=== PATIENT | female | born 1975 | race Two or more races ===

== ENCOUNTER 2020-03-12 15:28 | Outpatient (REF) | payer OTHER, SELFPAY | END 2020-03-12 15:29 | disposition home or self-care (01) | LOC: HO.LAB 15:28 | PROVIDERS: PCP Internal Medicine; Visit Provider Internal Medicine | DX: Z20.828 Contact with and (suspected) exposure to other viral communicable diseases (principal) | CPT/HCPCS: C9803; U0003 ==

== ENCOUNTER 2020-06-03 11:37 | Outpatient (REF) | payer OTHER, SELFPAY | END 2020-06-03 11:38 | disposition home or self-care (01) | LOC: HO.LAB 11:37 | PROVIDERS: Visit Provider Internal Medicine | DX: Z20.822 Contact with and (suspected) exposure to COVID-19 (principal) | CPT/HCPCS: 36415; C9803; U0003 ==

== ENCOUNTER 2020-06-12 13:13 | Outpatient (REF) | payer OTHER, SELFPAY | END 2020-06-12 13:14 | disposition home or self-care (01) | LOC: HO.LAB 13:13 | PROVIDERS: Visit Provider Internal Medicine | DX: Z20.822 Contact with and (suspected) exposure to COVID-19 (principal) | CPT/HCPCS: 36415; C9803; U0003; U0005 ==

== ENCOUNTER 2020-06-16 12:51 | Outpatient (REF) | payer OTHER, SELFPAY | END 2020-06-16 12:52 | disposition home or self-care (01) | LOC: HO.LAB 12:51 | PROVIDERS: Visit Provider Internal Medicine | DX: Z20.822 Contact with and (suspected) exposure to COVID-19 (principal) | CPT/HCPCS: 36415; C9803; U0003; U0005 ==

== ENCOUNTER 2021-04-28 14:53 | Outpatient (REF) | payer OTHER, SELFPAY | END 2021-04-28 14:54 | disposition home or self-care (01) | LOC: HO.LAB 14:53 | PROVIDERS: Visit Provider Internal Medicine | DX: Z20.822 Contact with and (suspected) exposure to COVID-19 (principal) | CPT/HCPCS: C9803; U0003; U0005 ==

== ENCOUNTER 2023-01-26 14:09 | Emergency (ER) | payer OTHER, SELFPAY ==
--- NOTE | 2023-01-26 14:14 | ED_ITS ---
HPI - General Adult General Chief complaint: Back Pain/Injury Stated complaint: back pain Related Data Allergies Allergy/AdvReac Type Severity Reaction Status Date / Time Ortho Evra Allergy Unknown skin Uncoded 03/20/11 00:00 irritation Physical Exam ED Vital Signs: Vital Signs - 24 hr 01/26/23 14:16 Temperature 98 F Pulse Rate 113 H Respiratory Rate 18 Blood Pressure 113/74 Pulse Oximetry 98 Oxygen Delivery Method Room Air BMI result Body Mass Index 25.7 Course Course Course Narrative: This is a rapid medical exam: Additional HPI, ROS, PE not included below will be deferred to primary provider. Patient is a 47-year-old female presenting to the ED with complaint of left lower back pain for one week. Reports history of kidney stones. States at times the pain radiates to the front. Denies fevers. Denies recent falls or other trauma. Rates pain at 10/10. Plan: UA, basic labs Medical Decision Making Lab Data 01/26/23 14:26 01/26/23 14:26 Labs: Lab Results 01/26/23 Range/Units 14:26 WBC 6.9 (4.8-10.8) X10*3/uL RBC 4.13 L (4.20-5.50) X10*6/uL Hgb 12.3 (12.0-16.0) g/dl Hct 40.2 (37.0-47.0) % MCV 97.3 (80.0-98.0) fL MCH 29.8 (27.0-33.0) pg MCHC 30.6 L (31.0-35.0) g/dl RDW 13.6 (11.0-16.0) % Plt Count 403 H (160-400) X10*3/uL MPV 9.8 (9.4-12.3) fL Immature Gran % (Auto) 0.1 (0.0-0.4) % Neut % (Auto) 61.8 (45-73) % Lymph % (Auto) 26.8 (20-40) % [place] % (Auto) 9.1 (2-11) % Eos % (Auto) 1.2 (0-4) % Baso % (Auto) 1.0 (0-2) % Lymph # (Auto) 1.9 (1.2-4.9) X10*3/uL [place] # (Auto) 0.6 (0.1-1.2) X10*3/uL Eos # (Auto) 0.1 (0.0-0.4) X10*3/uL Baso # (Auto) 0.1 (0.0-0.2) X10*3/uL Abs Immat Gran (auto) 0.01 (0.00-0.03) X10*3/uL Absolute Neuts (auto) 4.3 (2.0-8.3) x10*3/uL Absolute Nucleated RBC 0.000 (0.0-0.012) X10*3/uL Nucleated RBC % (auto) 0.0 (0.0-0.2) /100WBC Sodium 145 (135-145) mmol/L Potassium 3.9 (3.3-5.1) mmol/L Chloride 109 H (96-108) mmol/L Carbon Dioxide 28 (22-29) mmol/L Anion Gap 12 (12-20) BUN 12 (9-16) mg/dL Creatinine 0.86 (0.5-1.4) mg/dL Estim Creat Clear Calc 76.6 Estimated GFR > 60 Random Glucose 98 (60-115) mg/dL Calcium 9.8 (8.4-10.2) mg/dL Total Bilirubin 0.1 (0.0-1.0) mg/dL AST 17 (5-31) U/L ALT 12 (0-31) U/L Alkaline Phosphatase 73 (39-117) U/L Total Protein 7.7 (6.5-8.0) g/dL Albumin 4.1 (3.5-5.0) g/dL Beta HCG, Quant 3 mIU/mL Urine Color Dark Yellow Urine Appearance Clear Urine pH 6.5 (5.0-9.0) Ur Specific Oste[place] 1.025 (1.005-1.025) Urine Protein Trace (Neg-Trace) mg/dL Urine Glucose (UA) Negative (Negative) mg/dL Urine Ketones Negative (Negative) mg/dL Urine Blood Large (3+) H (Negative) Urine Nitrite Negative (Negative) Ur Leukocyte Esterase Small (1+) H (Negative) Urine RBC >20 H (0-2) /HPF Urine WBC 0-5 (0-5) /HPF Ur Squamous Epith Cells 6-10 (0-2) /HPF Urine Bacteria Trace (None Seen) Hyaline Casts 0-2 (0-2) /LPF Discharge Plan Discharge Clinical Impression: Left flank pain Patient Disposition: Left W/O Completing Treatment
[2023-01-26 14:16] VITALS: BP 113/74; PULSE 113; RESP 18; TEMP 36.6; O2SAT 98; BMI 25.7
[2023-01-26 14:32] LABS: MANUAL DIFF FLAG NO
[2023-01-26 14:33] LABS: Basophils Absolute Auto 0.1 X10*3/uL (0.0-0.2); Eosinophils Absolute Auto 0.1 X10*3/uL (0.0-0.4); Eosinophils Percent Auto 1.2 % (0-4); Hematocrit 40.2 % (37.0-47.0); Hemoglobin 12.3 g/dl (12.0-16.0); Imm Gran Abs Auto 0.01 X10*3/uL (0.00-0.03); Imm Gran Pct Auto 0.1 % (0.0-0.4); Lymphocytes Absolute Auto 1.9 X10*3/uL (1.2-4.9); Lymphocytes Percent Auto 26.8 % (20-40); Mean Corpuscular HGB Conc 30.6 g/dl (31.0-35.0); Mean Corpuscular Hemoglobin 29.8 pg (27.0-33.0); Mean Corpuscular Volume 97.3 fL (80.0-98.0); Mean Platelet Volume 9.8 fL (9.4-12.3); Monocytes Absolute Auto 0.6 X10*3/uL (0.1-1.2); Monocytes Percent Auto 9.1 % (2-11); Neutrophils Absolute Auto 4.3 x10*3/uL (2.0-8.3); Neutrophils Percent Auto 61.8 % (45-73); Platelet Count 403 X10*3/uL (160-400); Red Blood Count 4.13 X10*6/uL (4.20-5.50); Red Cell Distribution Width 13.6 % (11.0-16.0); White Blood Count 6.9 X10*3/uL (4.8-10.8)
[2023-01-26 14:38] LABS: Appearance Urine Clear; Color Urine Dark Yellow; Glucose Urine UA Negative (Negative); Leukocyte Esterase Urine Small (1+) (Negative); Nitrite Urine Negative (Negative); PH 6.5 (5.0-9.0); Specific Gravity - Urine 1.025 (1.005-1.025); UMIC TRIGGER UACC YES; Urine Blood Large (3+) (Negative); Urine Ketones Negative (Negative); Urine Protein Trace mg/dL (Neg-Trace)
[2023-01-26 14:52] LABS: Alanine Aminotransferase 12 U/L (0-31); Albumin Level 4.1 g/dL (3.5-5.0); Alkaline Phosphatase 73 U/L (39-117); Anion Gap 12 (12-20); Aspartate Amino Transferase 17 U/L (5-31); Bacteria Urine Trace (None Seen); Bilirubin Total 0.1 mg/dL (0.0-1.0); Blood Urea Nitrogen 12 mg/dL (9-16); Calcium 9.8 mg/dL (8.4-10.2); Carbon Dioxide 28 mmol/L (22-29); Chloride 109 mmol/L (96-108); Creatinine Clr Calc Pharmacy 76.6; Estimated Glomerular Filt Rate > 60; Glucose Random 98 mg/dL (60-115); Hyaline Casts Urine 0-2 /LPF (0-2); Potassium 3.9 mmol/L (3.3-5.1); RBC Urine >20 /HPF (0-2); Sodium 145 mmol/L (135-145); Total Protein 7.7 g/dL (6.5-8.0); UACC Culture Trigger YES; WBC Urine 0-5 /HPF (0-5)
[2023-01-26 14:53] LABS: HCG Quantitative 3 mIU/mL
== END 2023-01-26 20:07 | disposition left against medical advice (07) ==
PROVIDERS: Registered Nurse Emergency; Emergency Provider Emergency Medicine; PCP Internal Medicine
DX: R10.9 Unspecified abdominal pain (principal); M54.50 Low back pain, unspecified; Z79.899 Other long term (current) drug therapy
CPT/HCPCS: 36415; 80053; 81001; 84702; 85025; 87086; 99282; 99283

== ENCOUNTER 2023-06-24 15:13 | Emergency (ER) | payer OTHER, SELFPAY ==
[2023-06-24 15:34] VITALS: BP 141/53; PULSE 113; RESP 20; TEMP 37; O2SAT 100; BMI 26.4
--- NOTE | 2023-06-24 15:35 | ED.SKABFB ---
HPI - Skin/Abscess/Foreign Bdy General Chief complaint: Skin/Abscess/Foreign Body Stated complaint: Flank pain/lower back rash Time Seen by Provider: 06/24/23 15:49 Source: patient Mode of arrival: ambulatory Limitations: no limitations History of Present Illness HPI narrative: 48 year old female with no significant pmhx presents to the ED today for evaluation of painful, itchy rash to right lower back and thigh with pain to left flank x1 week. Admits to intense pain over the last week prior to noticing rash appear to right lower back. She states that she was seen at urgent care 1 week ago for same, prescribed clotrimazole-betamethasone for suspected tinea corporis. She has been using this for the last week without relief of symptoms. States that the rash is getting worse, now spreading to her right anterior thigh. Denies new soaps, detergents, lotions. Denies recent tick or insect bites. Otherwise up-to-date on vaccinations. Admits to having chickenpox as a child. Otherwise up-to-date on vaccinations. Denies fever, chills, nausea or vomiting, dysuria or hematuria. Denies chest pain, shortness of breath or difficulty breathing. Denies recent medication changes. Denies known allergies. Related Data Previous Rx's Medication Instructions Recorded gabapentin 100 mg capsule 100 mg PO BID 10 days #20 caps 06/24/23 valacyclovir 1 gram tablet 1,000 mg PO TID 10 days #30 tabs 06/24/23 (Valtrex) Allergies Allergy/AdvReac Type Severity Reaction Status Date / Time Ortho Evra Allergy Unknown skin Uncoded 06/24/23 15:38 irritation Review of Systems Review of Systems: Constitutional: No fever, chills, fatigue, night sweats, weight changes ENT/Mouth: No ear pain, hearing loss, nasal congestion, sinus pain, rhinorrhea, sore throat Eyes: No eye pain, swelling, redness, vision changes, discharge Cardio: No chest pain, palpitations, HERNANDEZ, orthopnea, peripheral edema Pulm: No SOB, cough, sputum, wheezing, dyspnea, hemoptysis GI: No nausea, vomiting, hematemesis, abdominal pain, diarrhea, constipation, hematochezia, melena : No irregular bleeding, dysuria, frequency, urgency, hesitancy, hematuria, flank pain, urinary flow changes, urinary incontinence or retention MSK: No back pain, neck pain, joint pain, myalgias Skin: No lesions, +painful rash Neuro: No weakness, numbness, paresthesias, LOC, dizziness, headache All other systems reviewed and are negative. [facility] Past Medical History Attestation statement: The following information was validated with the patient. Source: old records reviewed and nursing notes reviewed Social History Social History Advance Directives: No Advance Directives Information Provided: No Physical Exam Vital Signs: Vital Signs: Last Vital Signs Temp 98.6 F 06/24/23 15:34 Pulse 113 H 06/24/23 15:34 Resp 20 06/24/23 15:34 BP 141/53 H 06/24/23 15:34 Pulse Ox 100 06/24/23 15:34 O2 Del Method Room Air 06/24/23 15:34 BMI result Body Mass Index 26.4 Const: General: cooperative, healthy appearing, comfortable and no acute distress Orientation/consciousness: patient oriented x3 Limitations: no limitations HEENT: Other: + no involvement of mucous membranes Head: Yes normal to inspection, Yes normocephalic and Yes atraumatic Ears: hearing grossly normal bilaterally, external ears normal, TM's normal bilaterally, EAC's normal, mastoids normal and no periauricular adenopathy General nose exam: Normal external nose present Face and sinus: Yes normal facial exam Mouth: Normal oral and palatal mucosa present Eyes: Other: + no dendritic lesions General: appearance normal, both eyes and all related structures Conjunctivae: conjunctivae normal Sclerae: sclerae normal Pupils: Equal, round and reactive pupils present Neck: Neck: Yes normal visual inspection and Yes no lymphadenopathy Chest: Chest palpation & inspection: normal inspection of the chest Resp: Effort & Inspection: normal respiratory effort and able to speak in complete sentences Auscultation: clear to auscultation bilaterally Cardio: Rate: regular rate Rhythm: regular rhythm GI: Inspection: Yes normal to inspection Palpation (GI): Soft to palpation and nontender : General: Yes no CVA tenderness Back/Spine/Pelvis: Other: + no midline spinous tenderness or step off deformity Back: no CVA tenderness Skin: Other: + please refer to photos below + rash consisting of small blisters on an erythematous base in along right lumbar and sacral dermatomes. No sloughing. No involvement of mucous membranes. No involvement of palms/soles or web spaces. Neuro: General: patient oriented x3, gait normal and no focal motor deficits Cranial nerves: Yes Equal, round and reactive pupils present Extrem: General: Yes normal exam except as noted Course Course Course Narrative: [id number]-- Patient's presentation is most consistent with herpes zoster rash. There is no ocular involvement. Will send Valtrex and gabapentin to pharmacy for treatment. Patient states she takes prednisone at baseline for ulcerative colitis flare ups and thus a steroid will be prescribed. I do not feel as though further workup is necessary at this time as this is a clinical diagnosis. Discussed worrisome signs and symptoms of when to return to the ED. All questions answered at this time. Patient has remained stable throughout visit today. She is agreeable with disposition and stable for discharge. Medical Decision Making Medical Decision Making [facility] Narrative: 48 year old female with no significant pmhx presents to the ED today for evaluation of painful, itchy rash to right lower back and thigh with pain to left flank x1 week. She is afebrile. Nontoxic appearing in no acute distress. Please refer to physical exam section for my findings. Clinical concern for herpes zoster. Lower suspicion for contact dermatitis, tinea infection, tick-borne pathology. Unlikely herpes simplex, Lyme disease, SJS/TEN, scabies, [id number], gregory hui syndrome, medication adverse reaction. Plan for discharge. Differential Diagnosis Differential Diagnoses: The differential diagnosis associated with the presentation includes As above. Admission/Observation not indicated. Prescription Management I considered prescription management with: Pain Medication and Antiviral Social Determinants Patient?s care significantly limited by Social Determinants of Health including: Other Social Determinant of Health Discharge Plan Discharge Clinical Impression: Herpes zoster Patient Disposition: Home, Self-Care Instructions: Shingles (ED) Additional Instructions: You were evaluated in the ED today for rash. Your rash is consistent with shingles (herpes zoster). Treatment for this is Valtrex, an antiviral, which has been sent to your pharmacy. Take this 3 times a day for the next 10 days. Do not miss any doses or stop taking this early. Gabapentin is a medication for nerve pain. This has also been sent to your pharmacy. Take this twice daily as pain. You are contagious until pustules have scabbed over. You may follow-up with your PCP as needed. If symptoms persist or worsen please return to the ED. In the case of an emergency call 911. Prescriptions: New valacyclovir [Valtrex] 1 gram tablet 1,000 mg PO TID 10 Days Qty: 30 0RF gabapentin 100 mg capsule 100 mg PO BID 10 Days Qty: 20 0RF Interventions: ED Discharge Assessment Last Done: 06/24/23 15:48 Discharge Date/Time: 06/24/23 15:50
== END 2023-06-24 15:50 | disposition home or self-care (01) ==
PROVIDERS: Emergency Provider Emergency Medicine; PCP Internal Medicine
DX: B02.8 Zoster with other complications (principal); R10.9 Unspecified abdominal pain; M54.50 Low back pain, unspecified
CPT/HCPCS: 99283; 99284

== ENCOUNTER 2023-09-12 12:12 | Emergency (ER) | payer OTHER, SELFPAY ==
--- NOTE | ~2023-09-12 | XR_ITS ---
EXAMINATION: XR LUMBOSACRAL SPINE CLINICAL INFORMATION: Pain. Injury. COMPARISON: None available. TECHNIQUE: Three views of the lumbosacral spine. FINDINGS: Bone alignment is normal. No fracture or dislocation. Normal disc spaces. Mild degenerative spondylosis at L2-L3. Lower lumbar spine facet arthritis. XR/XR lumbar spine 2-3V IMPRESSION: Mild degenerative changes. No fracture or dislocation.
--- NOTE | ~2023-09-12 | XR_ITS ---
EXAMINATION: XR THORACOLUMBAR SPINE CLINICAL INFORMATION: Pain. Injury. COMPARISON: None available. TECHNIQUE: 3 views of the thoracic spine including swimmer's view FINDINGS: There is mild curvature of the lower thoracic and upper lumbar spine to the right. Bone alignment is otherwise normal. No fracture or dislocation. Normal disc spaces. Normal paraspinal soft tissues. XR/XR thoracic spine 2V IMPRESSION: No fracture or dislocation. Mild curvature of the lower thoracic and upper lumbar spine to the right.
[2023-09-12 12:43] VITALS: BP 118/61; PULSE 95; RESP 8; TEMP 36.6; O2SAT 99; BMI 26.3
--- NOTE | 2023-09-12 12:43 | ED.GENADULT ---
HPI - General Adult General Chief complaint: Back Pain/Injury Stated complaint: lower back pain Time Seen by Provider: 09/12/23 14:21 Source: patient Mode of arrival: ambulatory Limitations: no limitations History of Present Illness HPI narrative: Patient is a 48-year-old female presenting to the emergency department with complaint of mid to low back pain which began Tuesday. She denies any fall or other trauma but states that she has been moving over the course of several days and has been doing much more lifting than normal. States at times pain radiates down her right leg. Denies any saddle anesthesia or bowel or bladder incontinence. Denies fevers. Denies history of cancer or IV drug use. Has been using heat and gabapentin with temporary relief of symptoms. MD complaint: Back pain Onset (ago): day(s) Location: back Radiation: distal Severity: severe Quality: burning Pain Consistency: colicky Relieving factors: medication Exacerbating factors: movement Associated symptoms: denies other symptoms Treatments prior to arrival: heat therapy and other Related Data Previous Rx's ?Medication ?Instructions ?Recorded gabapentin 100 mg capsule 100 mg PO BID 10 days #20 caps 06/24/23 valacyclovir 1 gram tablet 1,000 mg PO TID 10 days #30 tabs 06/24/23 (Valtrex) cyclobenzaprine 5 mg tablet 5 mg PO TID PRN muscle spasm #10 09/12/23 tabs lidocaine 5 % topical patch 1 patch topical DAILY #15 ea 09/12/23 prednisone 20 mg tablet 40 mg (2 x 20 mg) PO DAILY #10 tabs 09/12/23 Allergies Allergy/AdvReac Type Severity Reaction Status Date / Time aspirin [ASA] AdvReac Unknown Verified 09/12/23 12:44 Review of Systems Review of Systems: As per HPI. Yes all other systems are reviewed and are negative Constitutional: Constitutional: Reports as per HPI [facility] Social History Social History Advance Directives: No Advance Directives Information Provided: No Physical Exam ED Vital Signs: Vital Signs - 24 hr 09/12/23 12:43 09/12/23 15:11 Temperature 98 F 98.2 F Pulse Rate 95 77 Respiratory Rate 8 L 16 Blood Pressure 118/61 108/57 L Pulse Oximetry 99 100 Oxygen Delivery Method Room Air Room Air BMI result Body Mass Index 26.3 Vital signs have been reviewed and appear to be correct. Blood pressure normal. Heart rate normal. Respiratory rate normal. Temperature normal. Oxygen saturation normal. Const General: cooperative, healthy appearing and no acute distress Orientation/consciousness: oriented to person, oriented to place, oriented to time and patient oriented x3 Limitations: no limitations HENKS Head: Yes normocephalic and Yes atraumatic Ears: external ears normal General nose exam: Normal external nose present Face and sinus: Yes face symmetric Mouth: oropharynx normal and moist mucous membranes Throat: Yes uvula midline Eyes Pupils: Equal, round and reactive pupils present Neck Neck: Yes normal visual inspection and Yes supple Resp Effort & Inspection: normal respiratory effort and able to speak in complete sentences Auscultation: clear to auscultation bilaterally Cardio Rate: regular rate Rhythm: regular rhythm Heart sounds: S1 normal heart sound present and S2 normal heart sound present GI Palpation (GI): Soft to palpation and nontender Auscultation: normoactive bowel sounds General: Yes no CVA tenderness Back/Spine/Pelvis Back: no CVA tenderness Cervical Spine: normal cervical lordosis, cervical ROM normal, No cervical muscular tenderness, No pain with cervical ROM, No Cervical spine tenderness and No step off deformity Thoracic/Lumbar Spine: thoracic and lumbar spine normal to inspection, thoraco-lumbar ROM normal, straight leg raise negative bilaterally, pain with thoraco-lumbar ROM, paraspinal muscle tenderness bilaterally in the upper lumbar, thoracic spinal tenderness at T11 and at T12 and lumbar spinal tenderness at L1 and at L2 Pelvis: no pain with anterior-posterior compression and no pain with lateral compression Skin General skin exam: elasticity normal and turgor normal Neuro General: oriented to person, oriented to place, oriented to time, patient oriented x3, moves all extremities, no focal motor deficits and CN's II-XI intact bilaterally Cranial nerves: Yes Equal, round and reactive pupils present Cognition (Neuro): normal cognition Extrem General: Yes full ROM, Yes no pedal edema and Yes no calf tenderness Psych Mental Status: mental status grossly normal Affect: normal affect Thought process: Normal thought process present Course Course Course Narrative: RME performed by Rebecca Delgado PA-C. Patient is a 48 year old assigned female at presenting to the emergency department with mid to low back pain. Patient states that she was moving the other day and started having mid to low back pain that is worse with certain movements. Patient states that she tried gabapentin and heat but it isn't helping as much as she'd like. Detailed physical exam and review of systems are deferred to the electronic engineering draftsperson. Imaging ordered. Patient placed back in the waiting room pending room availability and results. Medical Decision Making Medical Decision Making [facility] Narrative: Patient is a 48-year-old female presenting to the emergency department with complaint of mid to low back pain which began Tuesday. On exam patient is awake, A+Ox3, VS WNL, afebrile, normal neurological exam without focal deficits, physical exam findings as above. Given reported symptoms and physical exam findings, initial differential includes lumbar strain, lumbar radiculopathy, degenerative disc disease, disc herniation, spinal stenosis, spondylosis. Less likely vertebral fracture. Do not suspect malignancy/mass, SEA, cauda equina/cord compression. X-ray thoracic and lumbar spine notable for mild degenerative changes, no fractures were spondylosis. My interpretation is in agreement with the radiologist's interpretation. Physical exam findings most consistent with lumbar radiculopathy. Will treat patient with course of prednisone, cyclobenzaprine and lidocaine patches. Instructed patient follow-up with primary care provider. Return precautions discussed at bedside. Patient verbalized understanding of and agreement with plan. Differential Diagnosis Differential Diagnoses: The differential diagnosis associated with the presentation includes As per [facility] Admission/Observation Consideration of admission/observation: Escalation of care including admission/observation considered as per [facility] Independent Interpretation I performed an independent interpretation of an: Plain X-Ray Interpretation: X-ray thoracic and lumbar spine notable for mild degenerative changes, no fractures were spondylosis. Radiology Impression Discussion of test interpretation with radiology: I have reviewed the radiologist's reading. Radiologist Impression: XR/XR lumbar spine 2-3V IMPRESSION: Mild degenerative changes. No fracture or dislocation. XR/XR thoracic spine 2V IMPRESSION: No fracture or dislocation. Mild curvature of the lower thoracic and upper lumbar spine to the right. External Record Review External record reviewed: Inpatient record, Office record and Outpatient record Prescription Management I considered prescription management with: Pain Medication and Other Discharge Plan Discharge Clinical Impression: Lumbar radiculopathy Patient Disposition: Home, Self-Care Instructions: Lumbar Radiculopathy (ED) Additional Instructions: You were evaluated in the emergency department today for back pain. Your evaluation did not show signs of medical conditions requiring emergent intervention at this time. We recommended that you use ibuprofen or Tylenol per package directions every 6 hours as needed for pain. If necessary, you can alternate these medications so that you take one medication every 3 hours. For instance, at noon take ibuprofen, then at 3:00 p.m. take Tylenol, then at 6:00 p.m. take ibuprofen. You have been prescribed a muscle relaxer which you may take every 8 hours as needed for spasms. You have been prescribed 5% topical lidocaine patches which you can wear for up to 12 hours in a 24 hour period. Do not apply heat directly over the patches. You are also being prescribed a short course of steroids to decrease inflammation. Please schedule an appointment for follow-up with your primary care physician this week for further evaluation of your symptoms. Return to the emergency department if you experience worsening back pain, difficulty walking, fevers, numbness, tingling, incontinence, groin numbness or tingling, or any other concerning symptoms. Prescriptions: New prednisone 20 mg tablet 40 mg PO DAILY Qty: 10 0RF lidocaine 5 % adhesive patch,medicated 1 patch topical DAILY Qty: 15 0RF Rx Instructions: leave on most painful area for up to 12 hrs cyclobenzaprine 5 mg tablet 5 mg PO TID PRN (Reason: muscle spasm) Qty: 10 0RF No Action valacyclovir [Valtrex] 1 gram tablet 1,000 mg PO TID 10 Days Qty: 30 0RF gabapentin 100 mg capsule 100 mg PO BID 10 Days Qty: 20 0RF Print Language: Pashto
[2023-09-12 15:11] VITALS: BP 108/57; PULSE 77; RESP 16; TEMP 36.8; O2SAT 100
[2023-09-12 16:42] VITALS: BP 127/62; PULSE 88; RESP 20; TEMP 36.7; O2SAT 99
[2023-09-12 16:48] VITALS: BP 127/62; PULSE 88; RESP 20; TEMP 36.7; O2SAT 99
== END 2023-09-12 16:48 | disposition home or self-care (01) ==
PROVIDERS: Emergency Provider Student in an Organized Health Care Education/Training Program; PCP Internal Medicine
DX: M54.16 Radiculopathy, lumbar region (principal); M54.50 Low back pain, unspecified
CPT/HCPCS: 72070; 72100; 99283

== ENCOUNTER 2024-03-01 12:44 | Emergency (ER) | payer OTHER, SELFPAY ==
--- NOTE | ~2024-03-01 | XR_ITS ---
EXAMINATION: XR FOOT, LEFT CLINICAL INFORMATION: Pain. COMPARISON: Radiograph left foot 01/02/2009. TECHNIQUE: AP, lateral, and oblique views of the left foot. FINDINGS: No acute fracture or dislocation. No osseous erosions. No unusual soft tissue calcifications. Normal appearance of the soft tissues. XR/XR foot LT min 3V IMPRESSION: Normal radiographic examination of the left foot. Electronically signed by: Anna Carrion MD 03/01/2024 04:28 PM EDT
[2024-03-01 13:20] VITALS: BP 124/57; PULSE 91; RESP 18; TEMP 36.7; O2SAT 99; BMI 26.1
--- NOTE | 2024-03-01 13:23 | ED_ITS ---
HPI - General Adult General Chief complaint: Extremity Injury, Lower Stated complaint: L foot pain for a week Time Seen by Provider: 03/01/24 14:45 Source: patient Mode of arrival: ambulatory Limitations: no limitations History of Present Illness ED Provider: Dalila HPI narrative: Patient is a 49-year-old female presenting to the emergency department with complaint of atraumatic left foot pain for the past week. States that she is often standing for long periods of time at work. Denies any falls or other injuries. Has been using diclofenac gel with little relief. Denies any numb ness or tingling. MD complaint: foot pain Onset (ago): week(s) Treatments prior to arrival: NSAID and other Related Data Previous Rx's ?Medication ?Instructions ?Recorded gabapentin 100 mg capsule 100 mg PO BID 10 days #20 caps 06/24/23 valacyclovir 1 gram tablet 1,000 mg PO TID 10 days #30 tabs 06/24/23 (Valtrex) cyclobenzaprine 5 mg tablet 5 mg PO TID PRN muscle spasm #10 09/12/23 tabs lidocaine 5 % topical patch 1 patch topical DAILY #15 ea 09/12/23 prednisone 20 mg tablet 40 mg (2 x 20 mg) PO DAILY #10 tabs 09/12/23 prednisone 20 mg tablet 40 mg (2 x 20 mg) PO DAILY #14 tabs 03/01/24 Allergies Allergy/AdvReac Type Severity Reaction Status Date / Time aspirin [ASA] AdvReac Unknown Verified 03/01/24 13:22 Review of Systems Review of Systems: As per hPI Yes all other systems are reviewed and are negative Constitutional: Constitutional: Reports as per HPI COUNT INCLUDES [facility] Social History Social History Advance Directives: No Advance Directives Information Provided: Yes Do you have a plan to hurt others: No Plan Physical Exam ED Vital Signs: Vital Signs - 24 hr 03/01/24 13:20 03/01/24 14:30 03/01/24 16:08 Temperature 98.0 F 98.0 F 98.0 F Pulse Rate 91 79 79 Respiratory Rate 18 15 15 Blood Pressure 124/57 L 112/68 112/68 Pulse Oximetry 99 100 100 Oxygen Delivery Method Room Air Room Air Room Air BMI result Body Mass Index 26.1 Vital signs have been reviewed and appear to be correct. Blood pressure normal. Heart rate normal. Respiratory rate normal. Temperature normal. Oxygen saturation normal. Const General: cooperative, healthy appearing and no acute distress Orientation/consciousness: oriented to person, oriented to place, oriented to time and patient oriented x3 Limitations: no limitations HENAZ Head: Yes normocephalic and Yes atraumatic Ears: external ears normal General nose exam: Normal external nose present Face and sinus: Yes face symmetric Mouth: oropharynx normal and moist mucous membranes Throat: Yes uvula midline Eyes Pupils: Equal, round and reactive pupils present Neck Neck: Yes normal visual inspection and Yes supple Resp Effort & Inspection: normal respiratory effort and able to speak in complete sentences Auscultation: clear to auscultation bilaterally Cardio Rate: regular rate Rhythm: regular rhythm Heart sounds: S1 normal heart sound present and S2 normal heart sound present GI Palpation (GI): Soft to palpation and nontender Auscultation: normoactive bowel sounds General: Yes no CVA tenderness Back/Spine/Pelvis Back: no CVA tenderness Skin General skin exam: elasticity normal and turgor normal Neuro General: oriented to person, oriented to place, oriented to time, patient oriented x3, moves all extremities, no focal motor deficits and CN's II-XI intact bilaterally Cranial nerves: Yes Equal, round and reactive pupils present Cognition (Neuro): normal cognition Extrem General: Yes full ROM, Yes no pedal edema and Yes no calf tenderness Left lower extremity: foot Details: normal capillary refill, normal to inspection, tenderness Location: of the dorsal foot, toes with normal ROM, vascular exam Details: dorsalis pedis pulse present, posterior tibial pulse present and normal capillary refill, tendon exam Details: active flexion normal and active extension normal and motor-sensory exam Details: two point discrimination normal, light-touch normal and pin-prick normal; no unusual warmth and no ecchymosis Psych Mental Status: mental status grossly normal Affect: normal affect Thought process: Normal thought process present Course Course Course Narrative: RME, this is a rapid medical exam performed by Francesco Donis please refer to primary provider for complete H&P- 49-year-old female presents for evaluation of pain to the top of the left foot. She reports swelling but denies any specific injury. Plan x-ray Medical Decision Making Medical Decision Making MDM Narrative: Patient is a 49-year-old female presenting to the emergency department with complaint of atraumatic left foot pain for the past week. On exam patient is awake, A+Ox3, VS WNL, afebrile, normal neurological exam without focal deficits, physical exam findings as above. Given reported symptoms and physical exam findings, initial differential includes strain, sprain, tendinopathy, fracture. X-ray foot notable for no evidence of fracture. My interpretation is in agr eement with the radiologist's interpretation. Will treat patient with course of prednisone, Raj wrap provided in the ED. Advised patient to use compression stockings while at work. Follow-up with PCP. Return precautions discussed. Patient verbalized understanding of and agreement with plan. Differential Diagnosis Differential Diagnoses: The differential diagnosis associated with the presentation includes As per MDM Independent Interpretation I performed an independent interpretation of an: Plain X-Ray Interpretation: No evidence of acute fracture to left foot. Radiology Impression Discussion of test interpretation with radiology: I have reviewed the radiologist's reading. Radiologist Impression: XR/XR foot LT min 3V IMPRESSION: Normal radiographic examination of the left foot. External Record Review External record reviewed: Inpatient record, Office record and Outpatient record Prescription Management I considered prescription management with: Other Discharge Plan Discharge Clinical Impression: Tendinopathy of left foot Patient Disposition: Home, Self-Care Instructions: How to Use an Elastic Bandage (ED), R.I.C.E. Treatment (ED) Additional Instructions: You were evaluated in the emergency department today for left foot pain. Your x-rays did not show evidence of obvious fracture, however, the official radiologist's interpretation was not back prior to your discharge. If this interpretation differs, you will be contacted via telephone. You are being treated with a course steroids to decrease inflammation. We also provided you with an Raj wrap at today's visit. We recommend using compression socks while at work. Elevate your foot at rest, apply ice for 10-15 minutes at a time, using caution not to apply ice directly to skin. Follow-up with orthopedics for further evaluation and management of your symptoms. Return with new or concerning symptoms. Prescriptions: New prednisone 20 mg tablet 40 mg PO DAILY Qty: 14 0RF No Action valacyclovir [Valtrex] 1 gram tablet 1,000 mg PO TID 10 Days Qty: 30 0RF gabapentin 100 mg capsule 100 mg PO BID 10 Days Qty: 20 0RF prednisone 20 mg tablet 40 mg PO DAILY Qty: 10 0RF lidocaine 5 % adhesive patch,medicated 1 patch topical DAILY Qty: 15 0RF Rx Instructions: leave on most painful area for up to 12 hrs cyclobenzaprine 5 mg tablet 5 mg PO TID PRN (Reason: muscle spasm) Qty: 10 0RF Referrals: [facility] Orthopedic Surgeons [Provider Group] Interventions: ED Discharge Assessment Last Done: 03/01/24 16:08 Discharge Date/Time: 03/01/24 16:10 Print Language: Citizen Of [place]
[2024-03-01 14:30] VITALS: BP 112/68; PULSE 79; RESP 15; TEMP 36.7; O2SAT 100
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
--- OUTSIDE RECORDS SUMMARY | 2024-03-01 14:45 | XMS_ITS | Continuity of Care Document ---
Author Organization [facility] Address [address] [place] [address]- Care Team Providers Care Tank Farm Gauger Name Role Phone Carissa Solomon MD Primary Care Physician Encounter [facility] Date(s): 01/12/23 - 02/11/[address] [id number] Attending Physician: Chandrakant Silva Admitting Physician: AdmChandrakant hair Referring Physician: Admtr, Ar8 Allergies, Adverse Reactions, Alerts No Known Allergies [...] Date: 10/16/12 Status: Ordered Problem List Condition Confirmation Course Effective Dates Status Health St atus Informant Breast pain Confirmed Active Diffuse cystic mastopathy Confirmed Active Social History Social History Type Response Smoking Status Never (less than 100 in lifetime) entered on: 01/04/22 Sex Patient Care team information Care Team Personnel Name: Carissa Solomon MD Position: Reference Physician Member Role: PCP Address: Address: [address] [place] [id number] Care Team Related Persons Name: DENISE FLORIAN Name: MIRTHA LUI Address: [place] [address] [place], [place] [address]
--- OUTSIDE RECORDS SUMMARY | 2024-03-01 14:45 | XMS_ITS | Continuity of Care Document ---
Author Organization [facility] Address [address] [place] [address]- Care Team Providers Care Web Development Intern Name Role Phone Carissa Solomon MD Primary Care Physician Encounter [facility] [id number] Date(s): 11/25/22 - 03/11/[address] [address] Encounter Diagnosis Procedure and treatment not carried out, unspecified reason(Final) - Discharge Disposition: A-D/C Home Attending Physician: Carissa Solomon MD Admitting Physician: Carissa Solomon MD Referring Physician: Carissa Solomon MD Allergies, Adverse Reactions, Alerts No Known [...] Reference Physician Member Role: PCP Address: Address: [address] [place] [id number]- Care Team Related Persons Name: DENISE FLORIAN Name: MIRTHA LUI Address: [place] [address] [place] [id number]
--- OUTSIDE RECORDS SUMMARY | 2024-03-01 14:45 | XMS_ITS | Continuity of Care Document ---
Author Organization [facility] Address [address] [place] [address]- Care Team Providers Care Solutions Operator Name Role Phone Carissa Solomon MD Primary Care Physician En[place] [facility] [place] Date(s): 11/03/22 - 11/03/[address] [address] Discharge Disposition: A-D/C Home Attending Physician: Carissa Solomon MD Admitting Physician: Carissa Solomon MD Referring Physician: Sabrina Gilbert Allergies, Adverse Reactions, Alerts No Known Allergies [...] Reference Physician Member Role: PCP Address: Address: [address] [place] [address]- Care Team Related Persons Name: DENISE FLORIAN Name: MIRTHA LUI Address: home [address] [address]
--- OUTSIDE RECORDS SUMMARY | 2024-03-01 14:45 | XMS_ITS | Continuity of Care Document ---
Author Organization [facility] Address [address] [place] [address]- Care Team Providers Care Body Man Name Role Phone Carissa Solomon MD Primary Care Physician [phone] Encounter [facility] ACCT R [id number] Date(s): 11/30/22 - 12/30/[address] [email or web address] Attending Physician: Chandrakant Silva Admitting Physician: Chandrakant Silva Referring Physician: AdmtrChandrakant Allergies, Adverse Reactions, Alerts No Known Allergies [...] Reference Physician Member Role: PCP Address: Address: [address] [place] [id number] [[email or web address]] Care Team Related Persons Name: DENISE FLORIAN Name: MIRTHA LUI Address: home [address] [place] [address]
--- OUTSIDE RECORDS SUMMARY | 2024-03-01 14:45 | XMS_ITS | Continuity of Care Document ---
Author Organization [facility] Address [address] [place] [address]- Care Team Providers Care Pump Installer Name Role Phone Carissa Soloomn MD Primary Care Physician [phone] Encounter [facility] Date(s): 11/03/22 - 01/14/[address] [address] Encounter Diagnosis Sprain of unspecified ligament of left ankle, initial encounter(Final) - Discharge Disposition: A-D/C Home Attending Physician: [...] Reference Physician Member Role: PCP Address: Address: [address] [place] [id number]- Care Team Related Persons Name: DENISE FLORIAN Name: MIRTHA LUI Address: [place] [address] [place] [address]
[2024-03-01 16:08] VITALS: BP 112/68; PULSE 79; RESP 15; TEMP 36.7; O2SAT 100
== END 2024-03-01 16:10 | disposition home or self-care (01) ==
PROVIDERS: Emergency Provider Emergency Medicine; PCP Internal Medicine
DX: M77.52 Other enthesopathy of left foot and ankle (principal); M79.672 Pain in left foot
CPT/HCPCS: 73630; 99283

== ENCOUNTER 2024-04-12 16:16 | Inpatient (IN) | payer OTHER, SELFPAY ==
[2024-04-12] VITALS (20 sets, daily range): BP systolic 79–128; BP diastolic 34–68; PULSE 110–136; RESP 12–21; TEMP 36.6–37.9; O2SAT 94–100; BMI 27.3
--- NOTE | ~2024-04-12 | CT_ITS ---
EXAMINATION: CT ABDOMEN AND PELVIS WITHOUT CONTRAST CLINICAL INFORMATION: Left obstructive ureteric stone COMPARISON: None available. TECHNIQUE: Multidetector volumetric imaging was performed from the superior aspect of the liver through the pubic symphysis. Sagittal and coronal reformatted images were obtained on the technologist's workstation. This CT examination was performed using dose optimization techniques as appropriate, variously including the following: *Automated exposure control *Adjustment of mA and/or kV according to patient size (this includes techniques or standardized protocols for targeted exams where dose is matched to indication/reason for exam; i.e. extremities or head) *Use of iterative reconstruction technique DLP: 478 mGy-cm FINDINGS: LUNG BASES: The visualized lung bases are unremarkable. LIVER, GALLBLADDER, AND BILIARY TREE: The liver is normal in size, shape, and attenuation. No focal hepatic lesion or biliary ductal dilatation is present. The gallbladder is unremarkable with no evidence of radiopaque gallstones, gallbladder wall thickening, or obvious pericholecystic inflammatory changes. PANCREAS: Unremarkable. SPLEEN: Unremarkable. ADRENAL GLANDS: Unremarkable. KIDNEYS AND URETERS: At least 3 nonobstructing right ureteral stones, the largest of which measures 2 mm in the upper pole of the right kidney. No right hydronephrosis. Mild left pelvocaliectasis and prominence of the left ureter, but no obstructing ureteral stone or mass. The kidneys are otherwise normal in size, shape, and attenuation. No perinephric stranding. BLADDER: Unremarkable. No bladder stone. GASTROINTESTINAL TRACT: Diffuse circumferential wall thickening of the descending colon and rectosigmoid colon with fat deposition within the wall, likely represents chronic inflammation. No pericolonic stranding. The small bowel is unremarkable. The appendix is unremarkable. ABDOMINAL WALL: No significant hernia is appreciated. LYMPH NODES: Normal. VASCULAR: Unremarkable. PELVIC VISCERA: Unremarkable. OSSEOUS STRUCTURES: Mild degenerative changes of the spine. No destructive osseous lesions. CT/CT abdomen pelvis wo IV con IMPRESSION: 1. Mild prominence of the left collecting system, including the ureter, without overt hydroureteronephrosis and no obstructing ureteral stone or mass. Findings are nonspecific but may represent recently passed stone. 2. At least 3 nonobstructing right ureteral stones, the largest of which measures 2 mm in the upper pole of the right kidney. No right hydronephrosis. 3. Diffuse circumferential wall thickening of the descending colon and rectosigmoid colon with fat deposition within the wall, likely represents chronic inflammation. No pericolonic stranding. Fleischner guidelines were followed. Electronically signed by: Georgia Antunez MD 04/12/2024 09:15 PM NATALIA SAPP
--- NOTE | 2024-04-12 16:43 | PC.NURSE ---
Pt comes to ED via EMS for c/o R flank pain starting about 2 hours after urination, 10/10 R flnak pain with radiation to the R abd began. Pt reports (+) Hx kidney stones and ulcerative colitis. Pt also reports cloudy urine and feels as though she is not fully emptying her bladder. A&Ox3, VSS, afebrile. Skin is warm and dry Breaths and speech are unlabored. (+) facial symmetry noted. 18g to LAC placed by EMS--flushed on arrival and noted to be intact and patent. Per EMS, 4mg Zofran and two doses of 50 mcg Fentanyl given.
--- NOTE | 2024-04-12 17:09 | ED_ITS ---
HPI - Abdominal Pain General Chief Complaint: Abdominal Pain Stated Complaint: R sided flank pain Time Seen by Provider: 04/12/24 17:01 Source: patient and EMS Mode of arrival: EMS Limitations: no limitations History of Present Illness ED Provider: DR. Robbins HPI narrative: 49-year-old female brought in by EMS for evaluation of left flank pain that started few hours earlier today, pain is localized to the left flank area and radiates to the left groin area pain was described as severe 9/10, associated with nausea but no vomiting, no dysuria, no frequency urination, no hematuria, normal bowel movement was this morning, no blood in the urine or stool, passing flatus. surgical history is significant for tubal ligation. Patient has history of kidney stones required 1 time stent on right side when she was . Related Data Previous Rx's ?Medication ?Instructions ?Recorded gabapentin 100 mg capsule 100 mg PO BID 10 days #20 caps 06/24/23 valacyclovir 1 gram tablet 1,000 mg PO TID 10 days #30 tabs 06/24/23 (Valtrex) cyclobenzaprine 5 mg tablet 5 mg PO TID PRN muscle spasm #10 09/12/23 tabs lidocaine 5 % topical patch 1 patch topical DAILY #15 ea 09/12/23 prednisone 20 mg tablet 40 mg (2 x 20 mg) PO DAILY #10 tabs 09/12/23 prednisone 20 mg tablet 40 mg (2 x 20 mg) PO DAILY #14 tabs 03/01/24 Allergies Allergy/AdvReac Type Severity Reaction Status Date / Time aspirin [ASA] AdvReac Unknown Verified 04/12/24 16:29 Review of Systems Review of Systems All other systems are reviewed and are negative Constitutional: Reports as per HPI and Reports no additional constitutional complaints Eyes: Reports as per HPI and Reports no additional eye complaints Reports system reviewed and no additional complaints, except as documented Cardiovascular: Reports as per HPI and Reports no additional cardiovascular complaints Respiratory: Reports as per HPI and Reports no additional respiratory complaints Gastrointestinal: Reports as per HPI and Reports no additional gastrointestinal complaints Genitourinary: Reports no additional female genitourinary complaints Musculoskeletal: Reports no additional musculoskeletal complaints Skin/Breast: Reports system reviewed and no additional complaints, except as docu Psychiatric: Reports no additional psychiatric complaints Endocrine: Reports no additional endocrine complaints Hematologic/Lymphatic: Reports no additional hematologic/lymphatic complaints Allergic/Immunologic: Reports no additional allergic/immunologic complaints Reports system reviewed and no additional complaints, except as documented and Reports Abnormal speech present [facility] Past Medical History Medical History (Updated 04/13/24 @ 00:12 by Florence Robbins MD) Renal calculi Surgical History (Updated 04/13/24 @ 00:11 by Travon Mcghee NP) H/O tubal ligation Social History Social History Smoked in Last 30 Days: Yes Use of substances other than those prescribed or required for medical reasons: No Advance Directives: No Advance Directives Information Provided: No Do you have a plan to hurt others: No Plan Patient : No Physical Exam ED Vital Signs: Vital Signs - 24 hr 04/12/24 16:27 04/12/24 16:35 04/12/24 17:28 Temperature 97.8 F 97.8 F Pulse Rate 117 H 117 H Respiratory Rate 16 16 16 Blood Pressure 113/68 113/68 Pulse Oximetry 94 94 Oxygen Delivery Method Room Air Room Air 04/12/24 19:05 04/12/24 19:58 04/12/24 20:07 Temperature 98.5 F 99.0 F 100.3 F Pulse Rate 118 H 130 H 125 H Respiratory Rate 18 15 18 Blood Pressure 113/52 L 110/51 L 108/54 L Pulse Oximetry 98 97 97 Oxygen Delivery Method Room Air Room Air Room Air 04/12/24 20:44 04/12/24 21:04 04/12/24 21:59 Temperature 100.1 F 100.1 F 99.0 F Pulse Rate 136 H 126 H 114 H Respiratory Rate 16 13 16 Blood Pressure 101/55 L 93/45 L 93/50 L Pulse Oximetry 95 97 100 Oxygen Delivery Method Room Air Room Air Room Air 04/12/24 22:22 04/12/24 23:03 04/12/24 23:14 Temperature 98.8 F Pulse Rate 117 H 120 H Respiratory Rate 13 12 Blood Pressure 85/45 L 92/40 L 82/38 L Pulse Oximetry 100 100 Oxygen Delivery Method Room Air Room Air 04/12/24 23:17 04/12/24 23:22 04/12/24 23:27 Temperature Pulse Rate 119 H 122 H 122 H Respiratory Rate Blood Pressure 79/34 L 90/35 L 83/35 L Pulse Oximetry Oxygen Delivery Method 04/12/24 23:33 Temperature 99.4 F Pulse Rate 129 H Respiratory Rate 21 H Blood Pressure 102/49 L Pulse Oximetry 100 Oxygen Delivery Method Room Air BMI result Body Mass Index 27.3 Vital signs have been reviewed and appear to be correct. Blood pressure elevated. Heart rate normal. Respiratory rate normal. Temperature normal. Oxygen saturation normal. Appearance: Alert. Oriented X3. No acute distress. Head: Normal external exam. Normocephalic. Atraumatic. No Enciso signs noted. No raccoon eyes noted Eyes: PERRLA. EOMI. Conjunctiva and sclera normal. Eyelids normal. ENT: TM's Normal. Pharynx normal. Uvula midline. Moist mucous membranes. No trismus noted. No drooling noted. No muffled voice noted. Neck: Normal inspection. Neck supple. FROM. No adenopathy. Thyroid Normal. No meningeal signs. No neck mass noted. CVS: Normal heart rate and rhythm. Heart sound normal. No murmurs noted. Pulses normal throughout. Respiratory: No respiratory distress. Painless inspiration. Breath sounds normal. No wheezes/rales/rhonchi noted. Chest nontender. No accessory muscle usage noted or decreased air movement noted. Abdomen: Soft and nontender. Bowel sounds normal in all 4 quadrants. No distention noted. No organomegaly noted. No visible injury noted. Back: Left CVA tenderness. Full range of motion noted. Skin: Skin warm and dry. Normal skin color. Normal skin turgor. No rashes/lesions/lacerations noted. Extremities: No lower extremity edema. Extremities exhibit normal range of motion. Extremities nontender. Neuro: Oriented X 3. Cranial nerve exam: II-XII are grossly intact No motor deficit. No sensory deficit. Reflexes normal. Course Reevaluation(s) Reevaluation #1: 49-year-old female with left CVA tenderness and infected urine expected left pyelonephritis patient met criteria for SIRS and was reported to me that the patient had 1 episode of hypotension, received a bolus of 2163cc normal saline. Patient now is in septic shock. Time: 23:10 Reevaluation #2: FOCUSED EXAM: Patient is AAO x3, feels better, now patient is on Levophed blood pressure a is been stable on Levophed, patient is going to be admitted to ICU for septic shock. Time: 00:08 Medical Decision Making Differential Diagnosis Differential Diagnoses: The differential diagnosis associated with the presentation includes (Obstructive uropathy, pyelonephritis, sepsis, colitis, electrolyte derangement, severe anemia.) Admission/Observation Consideration of admission/observation: Escalation of care including admission/observation considered Consult Healthcare Provider Management of the patient was discussed with: Contract Negotiator (Dr. Ford) Lab Data MDM Lab Attestation statement: I reviewed the patient's lab results. 04/12/24 17:43 04/12/24 17:43 Labs: Lab Results 04/12/24 04/12/24 04/12/24 Range/Units 17:33 17:43 19:16 WBC 2.7 L (4.8-10.8) X10*3/uL RBC 3.61 L (4.20-5.50) X10*6/uL Hgb 9.5 L D (12.0-16.0) g/dl Hct 32.2 L (37.0-47.0) % MCV 89.2 (80.0-98.0) fL MCH 26.3 L (27.0-33.0) pg MCHC 29.5 L (31.0-35.0) g/dl RDW 15.7 (11.0-16.0) % Plt Count 297 D (160-400) X10*3/uL MPV 9.4 (9.4-12.3) fL Immature Gran % (Auto) 0.4 (0.0-0.4) % Neut % (Auto) 88.6 H (45-73) % Lymph % (Auto) 9.8 L (20-40) % [place] % (Auto) 0.0 L (2-11) % Eos % (Auto) 0.4 (0-4) % Baso % (Auto) 0.8 (0-2) % Lymph # (Auto) 0.3 L (1.2-4.9) X10*3/uL [place] # (Auto) 0.0 L (0.1-1.2) X10*3/uL Eos # (Auto) 0.0 (0.0-0.4) X10*3/uL Baso # (Auto) 0.0 (0.0-0.2) X10*3/uL Abs Immat Gran (auto) 0.01 (0.00-0.03) X10*3/uL Absolute Neuts (auto) 2.4 (2.0-8.3) x10*3/uL Absolute Nucleated RBC 0.000 (0.0-0.012) X10*3/uL Nucleated RBC % (auto) 0.0 (0.0-0.2) /100WBC Sodium 144 (135-145) mmol/L Potassium 3.6 (3.3-5.1) mmol/L Chloride 113 H (96-108) mmol/L Carbon Dioxide 24 (22-29) mmol/L Anion Gap 11 L (12-20) BUN 14 (9-16) mg/dL Creatinine 0.90 (0.5-1.4) mg/dL Estim Creat Clear Calc 73.5 Estimated GFR > 60 Random Glucose 105 (60-115) mg/dL Lactic Acid 1.3 (0.5-2.0) mmol/L Calcium 8.2 L D (8.4-10.2) mg/dL Total Bilirubin 0.4 (0.0-1.0) mg/dL Direct Bilirubin 0.2 (0.0-0.5) mg/dL AST 18 (5-31) U/L ALT 9 (0-31) U/L Alkaline Phosphatase 90 (39-117) U/L Total Protein 7.0 (6.5-8.0) g/dL Albumin 3.7 (3.5-5.0) g/dL Lipase 15 (8-78) U/L Urine Color Dark Yellow Urine Appearance Cloudy Urine pH 5.5 (5.0-9.0) Ur Specific [place] 1.015 (1.005-1.025) Urine Protein 30 (1+) H (Neg-Trace) mg/dL Urine Glucose (UA) Negative (Negative) mg/dL Urine Ketones Trace (Negative) mg/dL Urine Blood Large (3+) H (Negative) Urine Nitrite Positive H (Negative) Ur Leukocyte Esterase Large (3+) H (Negative) Urine RBC >20 H (0-2) /HPF Urine WBC >50 H (0-5) /HPF Ur Squamous Epith Cells 6-10 (0-2) /HPF Urine Bacteria 4+ (None Seen) Hyaline Casts 0-2 (0-2) /LPF Urine Test NEGATIVE (NEGATIVE) Independent Interpretation I performed an independent interpretation of an: CT Scan (Abdomen pelvis:. Mild prominence of the left collecting system, including the ureter, without overt hydroureteronephrosis and no obstructing ureteral stone or mass. Findings are nonspecific but may represent recently passed stone. 2. At least 3 nonobstructing right ureteral stones, the largest ) Radiology Impression Discussion of test interpretation with radiology: I have reviewed the radiologist's reading. Medications Administered Generic Name Dose Route Start Last Admin Trade Name Freq PRN Reason Stop Dose Admin Norepinephrine Bitartrate 8 mg in 250 mls @ 0 mls/hr 04/12/24 23:15 04/12/24 23:27 Levophed IVCONT 0.1 mcg/kg/min .Q0M SHAMIKA 13.52 mls/hr Titration Protocol Per Protocol Discontinued Medications Generic Name Dose Route Start Last Admin Trade Name Freq PRN Reason Stop Dose Admin Acetaminophen 975 mg 04/12/24 21:20 04/12/24 21:25 Acetaminophen 325 Mg Tablet PO 04/12/24 21:21 975 mg ONCE ONE Administration Sodium Chloride 1,000 mls @ 999 mls/hr 04/12/24 17:07 04/12/24 19:03 Ns IV 04/12/24 18:07 Infused .Q1H1M ONE Infusion Levofloxacin 750 mg in 150 mls @ 100 mls/hr 04/12/24 18:14 04/12/24 21:00 Levaquin IV 04/12/24 19:43 Infused ONCE ONE Infusion Sodium Chloride 2,163 mls @ 2,163 mls/hr 04/12/24 22:23 04/12/24 23:07 Ns 30 ml/kg infuse over 1 hr (2163 ml) 04/12/24 23:22 Infused IV Infusion .Q1H STA Ketorolac Tromethamine 15 mg 04/12/24 19:20 04/12/24 19:33 Ketorolac Tromethamine 15 Mg/Ml Vial IVPUSH 04/12/24 19:21 15 mg ONCE ONE Administration Morphine Sulfate 2 mg 04/12/24 17:07 04/12/24 17:28 Morphine Sulfate 2 Mg/Ml Cartridge IVPUSH 04/12/24 17:08 2 mg ONCE ONE Administration Protocol Morphine Sulfate 1 mg 04/12/24 19:20 04/12/24 19:33 Morphine Sulfate 2 Mg/Ml Cartridge IVPUSH 04/12/24 19:21 1 mg ONCE ONE Administration Protocol Ondansetron HCl 4 mg 04/12/24 17:07 04/12/24 17:28 Ondansetron Hcl 4 Mg/2 Ml Vial IVPUSH 04/12/24 17:08 4 mg ONCE ONE Administration Discharge Plan Discharge Clinical Impression: Pyelonephritis, Septic shock Patient Disposition: Admitted As Inpatient
[2024-04-12] MEDS: Morphine Sulfate 2 MG/ML CARTRIDGE IVPUSH (17:28)
[2024-04-12] MEDS: 0.9 % Sodium Chloride 1,000 ML 999 ML IV (17:28)
[2024-04-12] MEDS: ondansetron HCL 4 MG/2 ML VIAL IVPUSH (17:28)
[2024-04-12 17:42] LABS: Appearance Urine Cloudy; Color Urine Dark Yellow; Glucose Urine UA Negative (Negative); Leukocyte Esterase Urine Large (3+) (Negative); Nitrite Urine Positive (Negative); PH 5.5 (5.0-9.0); Specific Gravity - Urine 1.015 (1.005-1.025); UMIC TRIGGER UACC YES; Urine Blood Large (3+) (Negative); Urine Ketones Trace mg/dL (Negative); Urine Protein 30 (1+) mg/dL (Neg-Trace)
[2024-04-12 17:43] LABS: UPreg QC Valid YES; Urine Pregnancy NEGATIVE (NEGATIVE)
[2024-04-12 17:47] LABS: MANUAL DIFF FLAG NO
[2024-04-12 17:50] LABS: Bacteria Urine 4+ (None Seen); Hyaline Casts Urine 0-2 /LPF (0-2); RBC Urine >20 /HPF (0-2); UACC Culture Trigger YES; WBC Urine >50 /HPF (0-5)
[2024-04-12 17:50] LABS: Basophils Percent Auto 0.8 % (0-2); Eosinophils Percent Auto 0.4 % (0-4); Hematocrit 32.2 % (37.0-47.0); Hemoglobin 9.5 g/dl (12.0-16.0); Imm Gran Abs Auto 0.01 X10*3/uL (0.00-0.03); Imm Gran Pct Auto 0.4 % (0.0-0.4); Lymphocytes Absolute Auto 0.3 X10*3/uL (1.2-4.9); Lymphocytes Percent Auto 9.8 % (20-40); Mean Corpuscular HGB Conc 29.5 g/dl (31.0-35.0); Mean Corpuscular Hemoglobin 26.3 pg (27.0-33.0); Mean Corpuscular Volume 89.2 fL (80.0-98.0); Mean Platelet Volume 9.4 fL (9.4-12.3); Neutrophils Absolute Auto 2.4 x10*3/uL (2.0-8.3); Neutrophils Percent Auto 88.6 % (45-73); Platelet Count 297 X10*3/uL (160-400); Red Blood Count 3.61 X10*6/uL (4.20-5.50); Red Cell Distribution Width 15.7 % (11.0-16.0); White Blood Count 2.7 X10*3/uL (4.8-10.8)
[2024-04-12 18:04] LABS: Alanine Aminotransferase 9 U/L (0-31); Albumin Level 3.7 g/dL (3.5-5.0); Alkaline Phosphatase 90 U/L (39-117); Anion Gap 11 (12-20); Aspartate Amino Transferase 18 U/L (5-31); Bilirubin Direct 0.2 mg/dL (0.0-0.5); Bilirubin Total 0.4 mg/dL (0.0-1.0); Blood Urea Nitrogen 14 mg/dL (9-16); Calcium 8.2 mg/dL (8.4-10.2); Carbon Dioxide 24 mmol/L (22-29); Chloride 113 mmol/L (96-108); Creatinine Clr Calc Pharmacy 73.5; Estimated Glomerular Filt Rate > 60; Glucose Random 105 mg/dL (60-115); Lipase 15 U/L (8-78); Potassium 3.6 mmol/L (3.3-5.1); Sodium 144 mmol/L (135-145)
--- NOTE | 2024-04-12 19:16 | PC.NURSE ---
this rn assumed care of pt @ 1900. pt calm and cooperative. graphics edit technician drawing blood cultures at this time per md orders. pt reporting increased pain. this rn made dr frederick aware. per pt no allergy to aspirin/ ibuprofen. states was told should not take aspirin due to hx of ulcerative colitis. md made aware
--- NOTE | 2024-04-12 19:23 | MHC.EDTECH ---
This tech took over care of pt at 1900,rounded and introduced self to pt,changed pt into hospital attire,vitals taken,pt's HR is elevated,pt placed on the pvc monitor,RN was made aware,blood cultures/lactic drawn and sent to lab,call stewart in reach
[2024-04-12] MEDS: levoFLOXacin/D5W 750 MG/150 ML PIGGYBACK 100 MG IV (19:30)
[2024-04-12] MEDS: Ketorolac Tromethamine 15 MG/ML VIAL IVPUSH (19:33)
[2024-04-12] MEDS: Morphine Sulfate 2 MG/ML CARTRIDGE 1 MG IVPUSH (19:33)
[2024-04-12 19:35] LABS: Lactic Acid 1.3 mmol/L (0.5-2.0)
--- NOTE | 2024-04-12 20:02 | ECG_ITS ---
Test Reason : tachycardia Blood Pressure : / mmHG Vent. Rate : 130 BPM Atrial Rate : 130 BPM P-R Int : 144 ms QRS Dur : 076 ms QT Int : 294 ms P-R-T Axes : 076 021 065 degrees QTc Int : 432 ms Sinus tachycardia Otherwise normal ECG No previous ECGs available Referred By: Florence Robbins Electronically Signed By:Phill Willis
--- NOTE | 2024-04-12 20:03 | PC.NURSE ---
HR noted to be 120s-130s upon underwriting clerks supervisor. this rn made dr frederick aware per verbal orders ekg order placed
--- NOTE | 2024-04-12 20:12 | PC.NURSE ---
dr frederick made aware of temp of 100.3. no new orders per md.
[2024-04-12] MEDS: Acetaminophen 325 MG TABLET 975 MG PO (21:25)
--- NOTE | 2024-04-12 21:59 | MHC.EDTECH ---
Rounds and vitals completed,BP is low RN aware,pt is resting quietly,visitor at bedside,call stewart in reach
[2024-04-12] MEDS: SODIUM CHLORIDE 2163 ML IV (22:27)
--- NOTE | 2024-04-12 22:37 | PC.NURSE ---
dr frederick made aware of bp 85/45. ivf infusing special agent in charge aware
--- NOTE | 2024-04-12 23:05 | PC.NURSE ---
2nd iv placed in R Ac. 20g. pt tolerated well.
[2024-04-12] MEDS: Norepinephrine Bitartrate/D5W 8 MG/250 ML PLAST..BAG 6.76 MG IVCONT (23:17)
--- NOTE | 2024-04-12 23:18 | PC.NURSE ---
dr bowen made aware of bp 82/38 per md initiate levo gtt. starting rate of 0.05mcg/kg/hr hot metal charger aware
--- NOTE | 2024-04-12 23:23 | PC.NURSE ---
levo gtt titrated 0.07mcg/kg/hr titrated per pellet mill operator bp 90/33 HR 121
--- NOTE | 2024-04-12 23:28 | PC.NURSE ---
bp 83/35 HR 123 per inspecting engineer titrate to rate of 0.1mcg/kcg/hr
--- NOTE | 2024-04-12 23:41 | PM.CCHP ---
History of Present Illness Date of Service: 04/12/24 Attending physician on admission: Poornima Ford Chief Complaint: Left flank pain The patient is a 49-year-old female? with past medical history of right kidney stone s/p 1 stent placed when she was , who? presented to the emergency department via EMS for evaluation of left flank pain that started earlier today.? She describes the pain localized to her left flank area and was radiating to her left groin,? she said? she said similar to her previous kidney stone on the right side.? ?On arrival to the emergency department? tachycardic to 118, low-grade temp to 100.1, initially normotensive? but later became hypotensive despite fluid resuscitation requiring initiation of Levophed Laboratory data was significant for WBC 2.7, urine positive for UTI Imaging:? ?CT abdomen and pelvis:? does not show hydro nephrosis or obstructing ureteral stones Review of Systems Review of Systems: + nausea but no vomiting, no dysuria, no frequency urination, no hematuria, normal bowel movement was this morning, no blood in the urine or stool, passing flatus. Yes all other systems are reviewed and are negative PMFSH Past Medical History Medical History (Updated 04/13/24 @ 00:12 by Florence Robbins MD) Renal calculi Surgical History Surgical History (Updated 04/13/24 @ 00:11 by Travon Mcghee NP) H/O tubal ligation Social History Social History Household Members: None Housing: Apartment Do you presently have visiting nurse or other home services: No Patient Tobacco Use Status: Current everyday Tobacco user Tobacco use type: Smokeless Tobacco Smoked in Last 30 Days: Yes e-Cigarette/Vaping Use: Currently Using Patient Interested in Nicotine Replacement: No Use of substances other than those prescribed or required for medical reasons: No Currently Displaying Signs/Symptoms of Drug Intoxication Withdrawal: No Any prior treatment program specific to substance use: No Do you feel safe in your current relationship?: Yes Is there a partner from a previous relationship who is making you feel unsafe now?: No Are you made to feel afraid or neglected: No Advance Directives: No Advance Directives Information Provided: No Advance Directives on File: No Do you have a plan to hurt others: No Plan Recently lost weight without trying: No Eating poorly because of decreased appetite: No Nutrition Risks: No Nutritional Risk Patient : No : No Poor oral hygiene: No Meds Allergies Allergy/AdvReac Type Severity Reaction Status Date / Time aspirin [ASA] AdvReac Unknown Verified 04/12/24 16:29 Active Medications: Current Medications Norepinephrine Bitartrate (Levophed) 8 mg in 250 mls @ 0 mls/hr IVCONT .Q0M SHAMIKA; Protocol Last Titration: 04/12/24 23:27 Dose: 0.1 mcg/kg/min, 13.52 mls/hr Home Medications ?Medication ?Instructions ?Recorded ?Confirmed ?Last Taken ?Type azathioprine 50 mg tablet 50 mg PO BID 04/13/24 Unknown History bupropion HCl 150 mg tablet,12 hr 150 mg PO DAILY 04/13/24 Unknown History sustained-release duloxetine 60 mg capsule,delayed 60 mg PO DAILY 04/13/24 Unknown History release ferrous sulfate 325 mg (65 mg 325 mg PO BID 04/13/24 Unknown History iron) tablet norethindrone (contraceptive) 0.35 0.35 mg PO DAILY 04/13/24 Unknown History mg tablet omeprazole 20 mg capsule,delayed 20 mg PO DAILY 04/13/24 Unknown History release Physical Exam Vital Signs: Vital Signs: Last Vital Signs Temp 99.4 F 04/12/24 23:33 Pulse 121 H 04/12/24 23:38 Resp 14 04/12/24 23:38 BP 101/40 L 04/12/24 23:38 Pulse Ox 100 04/12/24 23:38 O2 Del Method Room Air 04/12/24 23:38 BMI result Body Mass Index 27.3 Sepsis focus exam performed at 2340 Constitutional: Alert, in no distress. Mental Status: Oriented to person, place and time. Head: Normocephalic. Eyes: Pupils are equal, round and reactive to light. Extraocular muscles intact. Ear, Nose and Throat: Oropharynx clear, mucous membranes moist. Ears and nose without masses, lesions or deformities. Trachea midline. Neck: Supple, Full range of motion. Respiratory: Lungs clear to acquisition, no wheezing no rhonchi no crackles Cardiovascular: Sinus tachycardia, S1 S2 regular. No murmurs, rubs or gallops. Gastrointestinal: Abdomen soft, mild diffuse tenderness, non-distended. Normal bowel sounds. Genitourinary: No costovertebral angle tenderness. Neurologic: Cranial nerves II-XII grossly intact. No focal neurological deficits. Moves all extremities spontaneously. Sensation intact bilaterally. Skin: No rashes or lesions. No petechiae or purpura. No edema Musculoskeletal: No cyanosis or clubbing. No gross deformities. Normal range of motion. Heme/Lymphatics/Immun: Palpation of neck reveals no swelling or tenderness of neck nodes. Psychiatric: Normal mood and affect Results Labs 04/13/24 05:04 04/13/24 05:04 Labs: Laboratory Results - last 24 hr 04/12/24 04/12/24 04/12/24 17:33 17:43 19:16 MCV 89.2 MCH 26.3 L MCHC 29.5 L RDW 15.7 Plt Count 297 D MPV 9.4 Immature Gran % (Auto) 0.4 Neut % (Auto) 88.6 H Lymph % (Auto) 9.8 L [place] % (Auto) 0.0 L Eos % (Auto) 0.4 Baso % (Auto) 0.8 Lymph # (Auto) 0.3 L [place] # (Auto) 0.0 L Eos # (Auto) 0.0 Baso # (Auto) 0.0 Abs Immat Gran (auto) 0.01 Absolute Neuts (auto) 2.4 Absolute Nucleated RBC 0.000 Nucleated RBC % (auto) 0.0 Anion Gap 11 L Estim Creat Clear Calc 73.5 Estimated GFR > 60 Random Glucose 105 Lactic Acid 1.3 Calcium 8.2 L D Total Bilirubin 0.4 Direct Bilirubin 0.2 AST 18 ALT 9 Alkaline Phosphatase 90 Total Protein 7.0 Albumin 3.7 Lipase 15 Urine Color Dark Yellow Urine Appearance Cloudy Urine pH 5.5 Ur Specific [place] 1.015 Urine Protein 30 (1+) H Urine Glucose (UA) Negative Urine Ketones Trace Urine Blood Large (3+) H Urine Nitrite Positive H Ur Leukocyte Esterase Large (3+) H Urine RBC >20 H Urine WBC >50 H Ur Squamous Epith Cells 6-10 Urine Bacteria 4+ Hyaline Casts 0-2 Urine Test NEGATIVE Imaging Radiologist's Impressions: Impressions Abdomen/Pelvis CT 04/12/24 17:51 IMPRESSION: 1. Mild prominence of the left collecting system, including the ureter, without overt hydroureteronephrosis and no obstructing ureteral stone or mass. Findings are nonspecific but may represent recently passed stone. 2. At least 3 nonobstructing right ureteral stones, the largest of which measures 2 mm in the upper pole of the right kidney. No right hydronephrosis. 3. Diffuse circumferential wall thickening of the descending colon and rectosigmoid colon with fat deposition within the wall, likely represents chronic inflammation. No pericolonic stranding. Fleischner guidelines were followed. Electronically signed by: Georgia Antunez MD 04/12/2024 09:15 PM [facility] Assessment and Plan (1) Septic shock: Status: Acute Plan ?49-year-old female? with? history of right renal calculi? admitted to the ICU for management of? septic shock from pyelonephritis requiring pressor support Plan: Neuro:? ?No acute issues Cardiac:?? Septic shock-? from pyelonephritis, ? CT does not show signs of obstruction /hydronephrosis. despite lactic being normal patient? continued to have? significant hypotension?requiring vasopressor support post fluid resuscitation.? Was treated with Levaquin in the emergency department.? We will continue. Patient on Levophed,? will wean off as appropriate Pulmonary: ?No acute issues Renal? ?No acute issues Endo:?? ?No acute issues GI:?? ?No acute issues ID: ?Septic shock- ? from? pyelonephritis. ?Blood cultures are pending.? Continue ? Levaquin Heme/Onc:?? ?No acute issues Psych:? No acute issues. Miscellaneous:? no acute issues Prophylaxis:? Lovenox ? CODE: ? Full code? Critical care time: X 60 minutes of critical care time? Case discussed with the attending
--- NOTE | 2024-04-12 23:51 | PC.NURSE ---
this rn provided rn to rn report to agricultural research engineer. awaiting transport to icu bed assignment pt calm and cooperative. denies pain verbalizes understanding of plan of care
[2024-04-13] VITALS (33 sets, daily range): BP systolic 85–137; BP diastolic 36–71; PULSE 80–117; RESP 10–22; TEMP 36.8–36.9; O2SAT 96–100; BMI 26.4; BMI 26.7; BMI 26.8
--- NOTE | 2024-04-13 00:12 | PC.NURSE ---
pt transported to icu by this rn and licensed real estate broker. bedside adn verbal report given to silviculture teacher.
[2024-04-13] MEDS: Calcium Gluconate/NaCl,Iso-Osm 1 GM/50 ML PLAST..BAG IV (00:26)
[2024-04-13] MEDS: Acetaminophen 325 MG TABLET 650 MG PO (04:00)
[2024-04-13 05:12] LABS: Venous Blood Gas Refer to POC result
[2024-04-13 05:13] LABS: Basophils Absolute Auto 0.1 X10*3/uL (0.0-0.2); Basophils Percent Auto 0.4 % (0-2); Hematocrit 28.1 % (37.0-47.0); Hemoglobin 8.4 g/dl (12.0-16.0); Imm Gran Abs Auto 0.29 X10*3/uL (0.00-0.03); Imm Gran Pct Auto 1.4 % (0.0-0.4); Lymphocytes Absolute Auto 0.9 X10*3/uL (1.2-4.9); Lymphocytes Percent Auto 4.4 % (20-40); MANUAL DIFF FLAG SCAN; Mean Corpuscular HGB Conc 29.9 g/dl (31.0-35.0); Mean Corpuscular Hemoglobin 26.2 pg (27.0-33.0); Mean Corpuscular Volume 87.5 fL (80.0-98.0); Monocytes Absolute Auto 0.8 X10*3/uL (0.1-1.2); Monocytes Percent Auto 3.7 % (2-11); Neutrophils Percent Auto 90.1 % (45-73); Platelet Count 327 X10*3/uL (160-400); Red Blood Count 3.21 X10*6/uL (4.20-5.50); Red Cell Distribution Width 15.7 % (11.0-16.0); SCAN SMEAR FLAG 1; White Blood Count 21.1 X10*3/uL (4.8-10.8)
[2024-04-13 05:22] LABS: VBG Base Excess -1.1 mmol/L; VBG HCO3 25 mmol/L (22-26); VBG pCO2 49 mmHg; VBG pH 7.31 (7.32-7.43); VBG pO2 50 mmHg
[2024-04-13 05:32] LABS: SLIDE REVIEW VERIFIED
[2024-04-13 05:35] LABS: Alanine Aminotransferase 10 U/L (0-31); Albumin Level 3.2 g/dL (3.5-5.0); Alkaline Phosphatase 58 U/L (39-117); Anion Gap 14 (12-20); Aspartate Amino Transferase 15 U/L (5-31); Bilirubin Total 0.4 mg/dL (0.0-1.0); Blood Urea Nitrogen 14 mg/dL (9-16); Carbon Dioxide 19 mmol/L (22-29); Chloride 114 mmol/L (96-108); Creatinine Clr Calc Pharmacy 74.5; Estimated Glomerular Filt Rate > 60; Glucose Random 112 mg/dL (60-115); Magnesium 1.6 mg/dL (1.6-2.6); Phosphorus 3.2 mg/dL (2.7-4.5); Potassium 3.9 mmol/L (3.3-5.1); Sodium 143 mmol/L (135-145); Total Protein 5.9 g/dL (6.5-8.0)
[2024-04-13] MEDS: Albumin Human 25 % 100 ML IV ×2 (07:39→14:39)
[2024-04-13] MEDS: Morphine Sulfate 2 MG/ML CARTRIDGE 1 MG IVPUSH ×3 (07:39→19:04)
--- NOTE | 2024-04-13 08:06 | PM.CCPN ---
Subjective Subjective Date of Service: 04/13/24 Interval History: admitted ICU 04/12 PM d/t septic shock 2/2 pyelonephritis Critical Care Time (minutes): 60 Physical Exam Vital Signs: Vital Signs: Last Vital Signs Temp 98.2 F 04/13/24 04:00 Pulse 85 04/13/24 07:00 Resp 12 04/13/24 07:00 BP 109/55 L 04/13/24 07:00 Pulse Ox 99 04/13/24 07:00 O2 Del Method Room Air 04/13/24 07:00 BMI result Body Mass Index 26.7 Const: General: cooperative, healthy appearing, comfortable, no acute distress, well developed, alert and Physically active Orientation/consciousness: patient oriented x3 HEENT: Head: Yes normal to inspection, Yes normocephalic and Yes atraumatic Eyes: General: appearance normal, both eyes and all related structures Neck: Neck: Yes normal visual inspection, Yes full ROM, Yes no meningeal signs, Yes trachea midline and Yes supple Chest: Chest palpation & inspection: normal inspection of the chest Resp: Other: no appreciable rales, rhonchi, wheezing Effort & Inspection: normal respiratory effort Cardio: Rate: regular rate Rhythm: regular rhythm GI: Inspection: Yes normal to inspection, No Abdominal wall edema and No distended Palpation (GI): Soft to palpation, not firm, nontender, no guarding and not rigid Skin: General skin exam: no rashes or lesions noted Neuro: General: patient oriented x3, tone normal, moves all extremities, no meningeal signs and no focal motor deficits Extrem: General: Yes normal to inspection, Yes full ROM, Yes capillary refill normal and Yes no clubbing, cyanosis or edema Psych: Appearance: grossly normal Objective Data Labs 04/13/24 05:04 04/13/24 05:04 Labs: Laboratory Results - last 24 hr 04/12/24 04/12/24 04/12/24 17:33 17:43 19:16 WBC 2.7 L RBC 3.61 L Hgb 9.5 L D Hct 32.2 L MCV 89.2 MCH 26.3 L MCHC 29.5 L RDW 15.7 Plt Count 297 D MPV 9.4 Immature Gran % (Auto) 0.4 Neut % (Auto) 88.6 H Lymph % (Auto) 9.8 L [place] % (Auto) 0.0 L Eos % (Auto) 0.4 Baso % (Auto) 0.8 Lymph # (Auto) 0.3 L [place] # (Auto) 0.0 L Eos # (Auto) 0.0 Baso # (Auto) 0.0 Abs Immat Gran (auto) 0.01 Absolute Neuts (auto) 2.4 Absolute Nucleated RBC 0.000 Nucleated RBC % (auto) 0.0 Smear Tech's Comments VBG pH VBG pCO2 VBG pO2 VBG HCO3 VBG O2 Saturation VBG Base Excess Sodium 144 Potassium 3.6 Chloride 113 H Carbon Dioxide 24 Anion Gap 11 L BUN 14 Creatinine 0.90 Estim Creat Clear Calc 73.5 Estimated GFR > 60 Random Glucose 105 Lactic Acid 1.3 Calcium 8.2 L D Phosphorus Magnesium Total Bilirubin 0.4 Direct Bilirubin 0.2 AST 18 ALT 9 Alkaline Phosphatase 90 Total Protein 7.0 Albumin 3.7 Lipase 15 Urine Color Dark Yellow Urine Appearance Cloudy Urine pH 5.5 Ur Specific [place] 1.015 Urine Protein 30 (1+) H Urine Glucose (UA) Negative Urine Ketones Trace Urine Blood Large (3+) H Urine Nitrite Positive H Ur Leukocyte Esterase Large (3+) H Urine RBC >20 H Urine WBC >50 H Ur Squamous Epith Cells 6-10 Urine Bacteria 4+ Hyaline Casts 0-2 Urine Test NEGATIVE 04/13/24 04/13/24 05:04 05:12 WBC 21.1 H RBC 3.21 L Hgb 8.4 L Hct 28.1 L MCV 87.5 MCH 26.2 L MCHC 29.9 L RDW 15.7 Plt Count 327 MPV 10.0 Immature Gran % (Auto) 1.4 H Neut % (Auto) 90.1 H Lymph % (Auto) 4.4 L [place] % (Auto) 3.7 Eos % (Auto) 0.0 Baso % (Auto) 0.4 Lymph # (Auto) 0.9 L [place] # (Auto) 0.8 Eos # (Auto) 0.0 Baso # (Auto) 0.1 Abs Immat Gran (auto) 0.29 H Absolute Neuts (auto) 19.0 H Absolute Nucleated RBC 0.000 Nucleated RBC % (auto) 0.0 Smear Tech's Comments VERIFIED VBG pH 7.31 L VBG pCO2 49 VBG pO2 50 VBG HCO3 25 VBG O2 Saturation Not Reportable VBG Base Excess -1.1 Sodium 143 Potassium 3.9 Chloride 114 H Carbon Dioxide 19 L Anion Gap 14 BUN 14 Creatinine 0.88 Estim Creat Clear Calc 74.5 Estimated GFR > 60 Random Glucose 112 Lactic Acid Calcium 8.0 L Phosphorus 3.2 Magnesium 1.6 Total Bilirubin 0.4 Direct Bilirubin AST 15 ALT 10 Alkaline Phosphatase 58 Total Protein 5.9 L Albumin 3.2 L Lipase Urine Color Urine Appearance Urine pH Ur Specific [place] Urine Protein Urine Glucose (UA) Urine Ketones Urine Blood Urine Nitrite Ur Leukocyte Esterase Urine RBC Urine WBC Ur Squamous Epith Cells Urine Bacteria Hyaline Casts Urine Test Progress Note: A&P Assessment and plan (1) Septic shock: Status: Acute (2) Pyelonephritis: Status: Acute Plan Patient is a 49 Y F w/ prior nephrolithiasis presenting initially to emergency department on 04/12 w/ L flank pain, found to have evidence of pyelonephritis w/o evidence of current obstructing stone, and found to be hypotensive, c/f septic shock N: no acute issues CV: septic shock, norepinephrine gtt, wean as tolerated R: no acute issues GI: regular diet : pyelonephritis w/o evidence of current obstructing stone; to closely monitor renal indices, electrolytes H: no acute issues; chemical DVT prophylaxis w/ enoxaparin SQ ID: septic shock 2/2 pyelonephritis, levofloxacin; to follow-up UCx, BCx E: to monitor hypo-/hyper-glycemia P: no acute issues Quality Stroke Does the patient have a stroke diagnosis?: No VTE Prior VTE?: No VTE Risk Level:: Medical - moderate - high VTE Device Contraindication: N/A - Device Ordered VTE Drug Contraindication: N/A - Med Ordered
--- NOTE | 2024-04-13 08:17 | PHA.MEDREC ---
Pharmacy Consult ? Medication Reconciliation Pharmacy has completed the medication reconciliation. Spoke to patient at bedside, she had a med list and stated those are the only medications she takes. Removed cyclobenzaprine, ferrous sulfate, gabapentin, lidocaine patch, prednisone, and valacyclovir from history as she stated she no longer takes them. Added Rizatriptan, ondansetron, Canasa, Meclizine, and Verapamil from her home med list.
[2024-04-13] MEDS: SUMAtriptan succinate 25 MG TABLET PO (09:49)
[2024-04-13] MEDS: Enoxaparin Sodium 40 MG/0.4 ML SYRINGE SUBCUT (09:50)
--- NOTE | 2024-04-13 10:17 | MHC.CM.PN ---
CM MET WITH PT AT BEDSIDE IN ICU. PT LIVES WITH FAMILY. INDEPENDENT AT BASELINE, +DRIVES. NO SERVICES/DME. CM PROVIDED EDUCATION ON HCP, PT DECLINES TO COMPLETE AT THIS TIME BUT WILL CONSIDER AT SOME POINT. PCP DR.PARA KELLY. DP: HOME, NO SERVICES IS THE GOAL. DAUGHTER WILL TRANSPORT . CM WILL CONTINUE TO FOLLOW FOR ANY CHANGE TO DC PLAN/NEEDS.
--- NOTE | 2024-04-13 13:50 | P.CDIM_ITS ---
PROVIDER RESPONSE TEXT: To clarify, the appropriate diagnosis supported by the clinical indicators: Acute pyelonephritis QUERY TEXT: PHYSICIAN'S DOCUMENTATION REQUEST Date of Query: 04/13/2024 08:44 AM EST Patient Name: Guy Bates Admit Date: 04/13/2024 Dear Poornima Ford MD, A review of the medical record indicates additional documentation may be needed. Please review below and update the documentation accordingly. Clinical Indicators: Admitted ICU d/t septic shock 2/2 pyelonephritis. Flank pain, evidence of pyelonephritis w/o evidence of current obstructing stone, found to be hypoten sive c/f septic shock. : pyelonephritis, monitor renal indices, electrolytes. Levaquin Clarify which of the following accurately represents the acuity of the Pyelonephritis if known, possi ble to please place your diagnosis within the written Plan: Acute pyelonephritis Acute on chronic pyelonephritis Chronic pyelonephritis Other (explain) Clinically unable to determine (explain) Thank you, Madiha Tobin, CCS, CDIS Use of terms such as suspected, likely, concern for, or probable (associated with a specific diagnosi s that is being evaluated, monitored, or treated as if it exists) are acceptable and can be coded in the inpatient se tting, when documented at the time of discharge. Please use your independent medical judgment in providing your response. THIS QUERY IS PART OF THE PERMANENT MEDICAL RECORD
[2024-04-13] MEDS: ondansetron HCL 4 MG/2 ML VIAL IVPUSH (17:34)
[2024-04-13] MEDS: Butalb/Acetamin/Caff 50/325/40 TABLET 1 TAB PO ×2 (17:34→22:14)
[2024-04-13] MEDS: levoFLOXacin/D5W 750 MG/150 ML PIGGYBACK 100 MG IV (17:35)
[2024-04-13] MEDS: Norepinephrine Bitartrate/D5W 8 MG/250 ML PLAST..BAG 6.76 MG IVCONT (22:37)
[2024-04-14] VITALS (22 sets, daily range): BP systolic 103–141; BP diastolic 45–73; PULSE 70–99; RESP 10–20; TEMP 36.2–37.4; O2SAT 97–100; BMI 26.9
[2024-04-14] MEDS: SUMAtriptan succinate 6 MG/0.5 ML VIAL SUBCUT (00:03)
[2024-04-14] MEDS: dexAMETHasone sod phosphate 4 MG/ML VIAL IVPUSH (00:04)
[2024-04-14] MEDS: ondansetron HCL 4 MG/2 ML VIAL IVPUSH (00:04)
[2024-04-14 04:55] LABS: MANUAL DIFF FLAG NO
[2024-04-14 04:57] LABS: Basophils Percent Auto 0.2 % (0-2); Eosinophils Absolute Auto 0.3 X10*3/uL (0.0-0.4); Eosinophils Percent Auto 1.7 % (0-4); Hematocrit 28.7 % (37.0-47.0); Hemoglobin 8.6 g/dl (12.0-16.0); Imm Gran Abs Auto 0.74 X10*3/uL (0.00-0.03); Imm Gran Pct Auto 4.2 % (0.0-0.4); Lymphocytes Absolute Auto 0.6 X10*3/uL (1.2-4.9); Lymphocytes Percent Auto 3.2 % (20-40); Mean Corpuscular Hemoglobin 26.1 pg (27.0-33.0); Mean Corpuscular Volume 87.2 fL (80.0-98.0); Monocytes Absolute Auto 0.2 X10*3/uL (0.1-1.2); Monocytes Percent Auto 1.1 % (2-11); Neutrophils Absolute Auto 15.7 x10*3/uL (2.0-8.3); Neutrophils Percent Auto 89.6 % (45-73); Platelet Count 280 X10*3/uL (160-400); Red Blood Count 3.29 X10*6/uL (4.20-5.50); Red Cell Distribution Width 15.9 % (11.0-16.0); White Blood Count 17.6 X10*3/uL (4.8-10.8)
[2024-04-14 05:21] LABS: Anion Gap 13 (12-20); Blood Urea Nitrogen 9 mg/dL (9-16); Calcium 9.1 mg/dL (8.4-10.2); Carbon Dioxide 22 mmol/L (22-29); Chloride 110 mmol/L (96-108); Estimated Glomerular Filt Rate > 60; Glucose Random 173 mg/dL (60-115); Magnesium 1.9 mg/dL (1.6-2.6); Phosphorus 1.7 mg/dL (2.7-4.5); Potassium 3.7 mmol/L (3.3-5.1); Sodium 141 mmol/L (135-145)
[2024-04-14] MEDS: Omeprazole 20 MG CAPSULE.DR PO (06:16)
[2024-04-14] MEDS: Potassium Phosphate/NS 15 MMOL/250 ML PLAST..BAG 62.5 MMOL IV (08:05)
[2024-04-14] MEDS: Enoxaparin Sodium 40 MG/0.4 ML SYRINGE SUBCUT (08:05)
[2024-04-14] MEDS: Acetaminophen 325 MG TABLET 650 MG PO ×2 (08:05→16:38)
--- NOTE | 2024-04-14 11:47 | PM.CCPN ---
Subjective Subjective Date of Service: 04/14/24 Interval History: 49-year-old lady with underlying history of nephrolithiasis status post placed in placement admitted on 04/12/2024 with septic shock secondary to pyelonephritis and Klebsiella bacteremia with no evidence of hydronephrosis requiring pressor support. No events overnight. Titrated off pressor support this a.m.. Critical Care Time (minutes): 45 Physical Exam Vital Signs: Vital Signs: Last Vital Signs Temp 98.2 F 04/14/24 08:59 Pulse 76 04/14/24 10:00 Resp 15 04/14/24 10:00 BP 113/55 L 04/14/24 10:00 Pulse Ox 98 04/14/24 10:00 O2 Del Method Room Air 04/14/24 10:00 BMI result Body Mass Index 26.9 Const: General: no acute distress, alert and awake Eyes: Sclerae: sclerae normal EOM: EOMs intact bilaterally Neck: Neck: Yes no lymphadenopathy, Yes trachea midline and Yes supple Resp: Effort & Inspection: normal respiratory effort and no respiratory distress Auscultation: clear to auscultation bilaterally Cardio: Rate: tachycardic Rhythm: regular rhythm Heart sounds: no gallops, no murmurs and no rubs GI: Palpation (GI): Soft to palpation and Other GI palpation findings present ( Nontender) Auscultation: normal bowel sounds Extrem: General: Yes no pedal edema, No clubbing and No cyanosis Objective Data Labs 04/14/24 04:51 04/14/24 04:51 Labs: Laboratory Results - last 24 hr 04/14/24 04:51 WBC 17.6 H RBC 3.29 L Hgb 8.6 L Hct 28.7 L MCV 87.2 MCH 26.1 L MCHC 30.0 L RDW 15.9 Plt Count 280 MPV 10.0 Immature Gran % (Auto) 4.2 H Neut % (Auto) 89.6 H Lymph % (Auto) 3.2 L [place] % (Auto) 1.1 L Eos % (Auto) 1.7 Baso % (Auto) 0.2 Lymph # (Auto) 0.6 L [place] # (Auto) 0.2 Eos # (Auto) 0.3 Baso # (Auto) 0.0 Abs Immat Gran (auto) 0.74 H Absolute Neuts (auto) 15.7 H Absolute Nucleated RBC 0.000 Nucleated RBC % (auto) 0.0 Sodium 141 Potassium 3.7 Chloride 110 H Carbon Dioxide 22 Anion Gap 13 BUN 9 Creatinine 0.79 Estim Creat Clear Calc 83.0 Estimated GFR > 60 Random Glucose 173 H Calcium 9.1 D Phosphorus 1.7 L Magnesium 1.9 Microbiology Microbiology Results: Microbiology 04/12/24 19:21 Blood - Venous Blood Culture - Preliminary Gram negative lilliam 04/12/24 19:16 Blood - Venous Blood Culture - Preliminary Gram negative lilliam 04/12/24 18:16 Urine clean catch - Clean Catch Midstream Urine Culture - Final Klebsiella pneumoniae Progress Note: A&P Assessment and plan (1) Pyelonephritis: Status: Acute (2) Bacteremia due to Klebsiella pneumoniae: Status: Acute (3) Septic shock: Status: Acute Plan Assessment: 49-year-old lady admitted with septic shock with pyelonephritis/bacteremia no evidence of hydronephrosis initially requiring pressor support. Plan: Neuro: No acute issues. Cardiac: Septic shock resolved, titrated off pressors. Pulmonary: No acute issues. Renal: Pyelonephritis with no hydronephrosis. Non oliguric. Continue to monitor renal indices and urine output. Endo: No acute issues. GI: No acute issues. ID: Klebsiella bacteremia with source, continue Levaquin. Heme/Onc: No acute issues. Psych: No acute issues. Miscellaneous: No acute issues. Prophylaxis: Heparin Diet: Regular Critical care time spent: 45 minutes Quality Stroke Does the patient have a stroke diagnosis?: No VTE Prior VTE?: No VTE Risk Level:: Medical - moderate - high VTE Device Contraindication: N/A - Device Ordered VTE Drug Contraindication: N/A - Med Ordered
[2024-04-14] MEDS: oxyCODONE HCl Immed Release 5 MG TABLET PO (18:36)
[2024-04-14] MEDS: levoFLOXacin/D5W 750 MG/150 ML PIGGYBACK 100 MG IV (18:36)
[2024-04-14] MEDS: Butalb/Acetamin/Caff 50/325/40 TABLET 1 TAB PO (19:38)
[2024-04-15 03:08] VITALS: BP 110/53; PULSE 92; RESP 18; TEMP 36.3; O2SAT 98
[2024-04-15] MEDS: Omeprazole 20 MG CAPSULE.DR PO (05:55)
[2024-04-15 06:43] LABS: MANUAL DIFF FLAG NO
[2024-04-15 07:05] LABS: Anion Gap 14 (12-20); Blood Urea Nitrogen 11 mg/dL (9-16); Carbon Dioxide 25 mmol/L (22-29); Chloride 109 mmol/L (96-108); Creatinine Clr Calc Pharmacy 86.5; Estimated Glomerular Filt Rate > 60; Glucose Random 90 mg/dL (60-115); Phosphorus 2.8 mg/dL (2.7-4.5); Potassium 3.1 mmol/L (3.3-5.1); Sodium 145 mmol/L (135-145)
[2024-04-15 07:11] LABS: Basophils Percent Auto 0.3 % (0-2); Eosinophils Percent Auto 0.3 % (0-4); Hematocrit 26.9 % (37.0-47.0); Hemoglobin 8.2 g/dl (12.0-16.0); Imm Gran Abs Auto 0.08 X10*3/uL (0.00-0.03); Imm Gran Pct Auto 0.7 % (0.0-0.4); Lymphocytes Absolute Auto 1.6 X10*3/uL (1.2-4.9); Lymphocytes Percent Auto 13.3 % (20-40); Mean Corpuscular HGB Conc 30.5 g/dl (31.0-35.0); Mean Corpuscular Hemoglobin 26.5 pg (27.0-33.0); Mean Corpuscular Volume 86.8 fL (80.0-98.0); Mean Platelet Volume 10.9 fL (9.4-12.3); Monocytes Absolute Auto 0.6 X10*3/uL (0.1-1.2); Monocytes Percent Auto 4.6 % (2-11); Neutrophils Absolute Auto 9.9 x10*3/uL (2.0-8.3); Neutrophils Percent Auto 80.8 % (45-73); Platelet Count 310 X10*3/uL (160-400); White Blood Count 12.3 X10*3/uL (4.8-10.8)
[2024-04-15 07:30] VITALS: BP 116/64; PULSE 67; RESP 18; TEMP 36.9; O2SAT 97
[2024-04-15 08:00] VITALS: BMI 26.8
[2024-04-15] MEDS: Potassium Chloride ER 20 MEQ TAB.ER.PRT 40 MEQ PO (08:21)
[2024-04-15] MEDS: Enoxaparin Sodium 40 MG/0.4 ML SYRINGE SUBCUT (08:22)
[2024-04-15] MEDS: Morphine Sulfate 2 MG/ML CARTRIDGE 1 MG IVPUSH (08:27)
--- NOTE | 2024-04-15 09:46 | PM.DS ---
DS: Providers Provider Date of Service: 04/15/24 Date of admission: 04/12/24 23:37 Date of discharge: 04/15/24 Primary care physician: Migdalia Child MD DS: Diagnosis Discharge Diagnosis (1) Pyelonephritis: Status: Acute (2) Bacteremia due to Klebsiella pneumoniae: Status: Acute (3) Septic shock: Status: Acute DS: Summary Hospital Course Hospital Course: from initial hpi: 49-year-old female? with past medical history of right kidney stone s/p 1 stent placed when she was , who? presented to the emergency department via EMS for evaluation of left flank pain that started earlier today.? She describes the pain localized to her left flank area and was radiating to her left groin,? she said? she said similar to her previous kidney stone on the right side.? ?On arrival to the emergency department? tachycardic to 118, low-grade temp to 100.1, initially normotensive? but later became hypotensive despite fluid resuscitation requiring initiation of Levophed Laboratory data was significant for WBC 2.7, urine positive for UTI Imaging:? ?CT abdomen and pelvis:? does not show hydro nephrosis or obstructing ureteral stones hospital course: Patient was admitted to the intensive care unit for septic shock due to acute pyelonephritis complicated by bacteremia. Cultures grew Klebsiella sensitive to fluoroquinolones. Patient was treated with levofloxacin able to be weaned off pressors and sepsis resolved. CT scan did show small nonobstructing stones, likely etiology was passed stone. Patient will be referred to Nephrology as outpatient for prevention of further stone formation. Encouraged to increase fluid intake. On discharge will continue 7 more days of levofloxacin. Time Attestation Discharge Coordination Time (in mins): 37 Quality: Safe Use of Opioids Does Pt have an Active Cancer Diagnosis on the Problem List?: No Quality: Stroke Does the patient have a stroke diagnosis?: No Physical Exam Vital Signs: Vital Signs: Last Vital Signs Temp 98.5 F 04/15/24 07:30 Pulse 67 04/15/24 07:30 Resp 18 04/15/24 07:30 BP 116/64 04/15/24 07:30 Pulse Ox 97 04/15/24 07:30 O2 Del Method Room Air 04/15/24 07:30 BMI result Body Mass Index 26.9 General: AO X 3, no acute distress Resp: CTA bilateral, no accessory muscles used CVS: S1,S2,RRR GI: soft, non tender, non distended Neuro: motor grossly intact, alert Psych: appropriate affect, appropriate insight DS: Data Data Completed and Pending Labs on day of discharge: Laboratory Results - last 24 hr 04/15/24 06:22 WBC 12.3 H RBC 3.10 L Hgb 8.2 L Hct 26.9 L MCV 86.8 MCH 26.5 L MCHC 30.5 L RDW 16.0 Plt Count 310 MPV 10.9 Immature Gran % (Auto) 0.7 H Neut % (Auto) 80.8 H Lymph % (Auto) 13.3 L [place] % (Auto) 4.6 Eos % (Auto) 0.3 Baso % (Auto) 0.3 Lymph # (Auto) 1.6 [place] # (Auto) 0.6 Eos # (Auto) 0.0 Baso # (Auto) 0.0 Abs Immat Gran (auto) 0.08 H Absolute Neuts (auto) 9.9 H Absolute Nucleated RBC 0.000 Nucleated RBC % (auto) 0.0 Sodium 145 Potassium 3.1 L Chloride 109 H Carbon Dioxide 25 Anion Gap 14 BUN 11 Creatinine 0.76 Estim Creat Clear Calc 86.5 Estimated GFR > 60 Random Glucose 90 Calcium 9.0 Phosphorus 2.8 Magnesium 2.0 Discharge Plan Discharge Anticipated Discharge Date/Time: 04/15/24 09:38 Patient Disposition: Home, Self-Care Discharge Diagnosis: Septic shock from pyelonephritis with bacteremia Referrals: Odell Newman MD [Physician] - 1 Week (Recurrent calcium stones) Migdalia Davis MD [Primary Care Provider] - 1 Week Discharge Medications: New levofloxacin 750 mg tablet 750 mg PO DAILY Qty: 7 0RF Continued bupropion HCl 150 mg tablet sustained-release 12 hr 150 mg PO DAILY azathioprine 50 mg tablet 50 mg PO BID omeprazole 20 mg capsule,delayed release(DR/EC) 20 mg PO DAILY@0630 norethindrone (contraceptive) 0.35 mg tablet 0.35 mg PO DAILY duloxetine 60 mg capsule,delayed release(DR/EC) 60 mg PO DAILY ondansetron HCl 4 mg tablet 4 mg PO Q12H PRN (Reason: nausea) meclizine 25 mg Tablet 25 mg PO DAILY PRN (Reason: Nausea And Vomiting) chelsytriptan 10 mg tablet,disintegrating 10 mg PO DIRECTED PRN (Reason: Migraine Headache) mesalamine 1,000 mg Suppository 1 g HI BEDTIME PRN (Reason: Ulcerative colitis) Discontinued verapamil 40 mg Tablet 40 mg PO DAILY Discharge Orders: Discharge Order (Routine); Ordered 04/15/24 Ordered By: Sukh Lindsey Diet: Advance to usual diet Activity on Discharge: As tolerated Stand Alone Forms: Patient Portal Discharge page Print Language: Georgian Care Plan Goals: Recovery Health Concerns: pyelonephritis Plan of Treatment: 7 days levaquin follow up with nephro Assessment: see above
--- NOTE | 2024-04-15 10:11 | MHC.CM.PN ---
PT TO DC HOME TODAY WITH NO SERVICES FAMILY TO TRANSPORT
== END 2024-04-15 11:57 | disposition home or self-care (01) | DRG 720 ==
LOC: HO.ED 17:09 → HO.ICU 23:44 → HO.IMC 04-14 15:50
PROVIDERS: Internal Medicine Critical Care Medicine; Internal Medicine Pulmonary Disease; Admitting Provider Registered Nurse Community Health; Emergency Provider Emergency Medicine; PCP Internal Medicine; Visit Provider Internal Medicine
DX: A41.9 Sepsis, unspecified organism (principal); R65.21 Severe sepsis with septic shock; F17.210 Nicotine dependence, cigarettes, uncomplicated; N10 Acute pyelonephritis; B96.1 Klebsiella pneumoniae [K. pneumoniae] as the cause of diseases classified elsewhere; Z71.6 Tobacco abuse counseling
CPT/HCPCS: 36415; 74176; 80048; 80053; 80076; 81001; 81025; 82803; 83605; 83690; 83735; 84100; 85025; 87040; 87077; 87086; 87088; 87186; 87205; 93005; 99285; J0613; J1100; J1650; J1885; J1956; J2270; J2405; J3030; P9047

== ENCOUNTER → 2024-04-12 20:02 | Outpatient (BNV) | payer OTHER, SELFPAY | PROVIDERS: Admitting Provider Registered Nurse Community Health; Emergency Provider Emergency Medicine; PCP Internal Medicine; Visit Provider Internal Medicine Cardiovascular Disease | DX: R00.0 Tachycardia, unspecified (principal) | CPT/HCPCS: 93010 ==

== ENCOUNTER → 2024-04-12 23:37 | Outpatient (BNV) | payer OTHER, SELFPAY | PROVIDERS: Admitting Provider Registered Nurse Community Health; Emergency Provider Emergency Medicine; PCP Internal Medicine; Visit Provider Registered Nurse Community Health | DX: A41.9 Sepsis, unspecified organism (principal); R65.21 Severe sepsis with septic shock; N12 Tubulo-interstitial nephritis, not specified as acute or chronic | CPT/HCPCS: 99291 ==

== ENCOUNTER → 2024-04-12 23:37 | Outpatient (BNV) | payer OTHER, SELFPAY | PROVIDERS: Admitting Provider Registered Nurse Community Health; Emergency Provider Emergency Medicine; PCP Internal Medicine; Visit Provider Internal Medicine Pulmonary Disease | DX: N12 Tubulo-interstitial nephritis, not specified as acute or chronic (principal); R78.81 Bacteremia; B96.1 Klebsiella pneumoniae [K. pneumoniae] as the cause of diseases classified elsewhere; A41.9 Sepsis, unspecified organism; R65.21 Severe sepsis with septic shock | CPT/HCPCS: 99291 ==

== ENCOUNTER → 2024-04-12 23:37 | Outpatient (BNV) | payer OTHER, SELFPAY | PROVIDERS: Admitting Provider Registered Nurse Community Health; Emergency Provider Emergency Medicine; PCP Internal Medicine; Visit Provider Internal Medicine | DX: N12 Tubulo-interstitial nephritis, not specified as acute or chronic (principal); R78.81 Bacteremia; B96.1 Klebsiella pneumoniae [K. pneumoniae] as the cause of diseases classified elsewhere; A41.9 Sepsis, unspecified organism; R65.21 Severe sepsis with septic shock | CPT/HCPCS: 99239 ==

== ENCOUNTER → 2024-04-20 11:43 | Outpatient (BNVA) | payer OTHER, SELFPAY | PROVIDERS: PCP Internal Medicine; Visit Provider Internal Medicine Nephrology | DX: N20.0 Calculus of kidney (principal) | CPT/HCPCS: 99202 ==

== ENCOUNTER 2024-04-20 11:59 | Outpatient (AMB) | payer OTHER, SELFPAY ==
--- NOTE | 2024-04-20 11:47 | HO.NEPHOV_ITS ---
Vital Signs 04/20/24 11:50 Height 5 ft 4 in Weight 149 lb BMI 25.6 BP 120/70 Blood Pressure Location Lt brachial Position Sitting Pulse 101 H Pulse Source Pulse Oximeter Pulse Oximetry (%) 99 Oxygen Delivery Method Room Air Intake Visit Reasons: [facility] [place] HFU/LVM Inspecting Supervisor Required: No Accompanied by: Self / Same As Patient Allergies aspirin [ASA] Adverse Reaction (Verified 04/20/24 11:50) Unknown HPI Comments Details: Guy is a 49 year old [employer] [facility] [place] employee was seen in consultation for renal calculi. She has H/O renal stones for a long time. She has H/O inflammatory bowel disease and currently on mesalamine. One time she had sepsis from renal stone disease needed ICU admission & pressors. She has very strong family H/O renal calculus. She has no hematuria, flank pain, recurrent UTI. Her calculus has been calcium oxalate as per her. She does not drink enough fluid and has normal sodium containing diet. She does not remember doing a recent 24 hour urine collection for stone screen/ calcium/ citrate levels. She has not been on any HCTZ or K citrate. Her renal functions are normal. [facility], [facility] Medical History (Updated 04/23/24 @ 00:03 by Trista Pinzon) Renal calculi Surgical History H/O tubal ligation Social History Household Members: None Housing: Apartment Do you presently have visiting nurse or other home services: No Patient Tobacco Use Status: Current everyday Tobacco user Tobacco use type: Smokeless Tobacco e-Cigarette/Vaping Use: Currently Using service: No Review of Systems Const All systems reviewed & are unremarkable except as noted in HPI and below Physical Exam Vital Signs: Last Vital Signs Pulse 101 H 04/20/24 11:50 BP 120/70 04/20/24 11:50 Pulse Ox 99 04/20/24 11:50 Oxygen Delivery Method Room Air 04/20/24 11:50 BMI result Body Mass Index 25.6 Const General: comfortable and no acute distress Orientation/consciousness: patient oriented x3 HEENT Head: Yes normocephalic Mouth: Normal oral and palatal mucosa present Eyes EOM: EOMs intact bilaterally Neck Neck: Yes supple Resp Auscultation: clear to auscultation bilaterally Cardio Jugular venous distension: no JVD Rate: regular rate GI Palpation (GI): Soft to palpation Auscultation: normal bowel sounds General: Yes no CVA tenderness Back/Spine/Pelvis Back: no CVA tenderness Skin General skin exam: no rashes or lesions noted Neuro General: patient oriented x3 and moves all extremities Extrem General: Yes no pedal edema Results Reviewed Nephrology Results: Hgb 8.2 g/dl (12.0-16.0) L 04/15/24 WBC 12.3 X10*3/uL (4.8-10.8) H 04/15/24 Plt Count 310 X10*3/uL (160-400) 04/15/24 Sodium 145 mmol/L (135-145) 04/15/24 Potassium 3.1 mmol/L (3.3-5.1) L 04/15/24 Chloride 109 mmol/L (96-108) H 04/15/24 Carbon Dioxide 25 mmol/L (22-29) 04/15/24 BUN 11 mg/dL (9-16) 04/15/24 Creatinine 0.76 mg/dL (0.5-1.4) 04/15/24 Calcium 9.0 mg/dL (8.4-10.2) 04/15/24 Phosphorus 2.8 mg/dL (2.7-4.5) 04/15/24 Urine Protein 30 (1+) mg/dL (Neg-Trace) H 04/12/24 Assessment & Plan Assessment & Plan (1) Renal calculi: Code(s): N20.0 - Calculus of kidney Category: Medical Plan Guy has renal stone disease ( calcium oxalate). She has inflammatory bowel disease as well as very strong family H/O renal calculus. She was encourag ed to drink adequate amount of fluid, cut back sodium in the diet, reduce meat and increase fruits & vegetables. I have ordered 24 hour urine collection as well as blood work. She will be a candidate for HCTZ and or K citrate based on data. I also plan to do a follow up renal imaging. All questions answered. Orders: Orders Sodium, 24Hr Urine Group 1 Month N20.0 - Calculus of kidney Calcium 1 Month N20.0 - Calculus of kidney Parathyroid Hormone Intact 1 Month N20.0 - Calculus of kidney Calcium, 24 Hr Ur 1 Month N20.0 - Calculus of kidney Oxalate, 24 Hr 1 Month N20.0 - Calculus of kidney Uric Acid, 24Hr Urine Group 1 Month N20.0 - Calculus of kidney Citric Acid 24hr Urine 1 Month N20.0 - Calculus of kidney Uric Acid 1 Month N20.0 - Calculus of kidney Coding Level of Care Code New Pt Level 4 (25761) Diagnoses Renal calculi N20.0
[2024-04-20 11:50] VITALS: BP 120/70; PULSE 101; O2SAT 99; BMI 25.6
== END 2024-04-20 12:13 | disposition home or self-care (01) ==
PROVIDERS: PCP Internal Medicine; Visit Provider Internal Medicine Nephrology
DX: N20.0 Calculus of kidney (principal)
CPT/HCPCS: 99204

== ENCOUNTER 2024-11-13 12:20 | Emergency (ER) | payer OTHER, SELFPAY ==
--- NOTE | ~2024-11-13 | XR_ITS ---
EXAMINATION: XR HAND 3 OR MORE VIEWS RIGHT, XR WRIST 3 OR MORE VIEWS RIGHT HISTORY: wrist pain COMPARISON: There are no prior studies available for comparison. FINDINGS: Six views of the right hand and wrist are submitted. Osseous mineralization is normal. There is no fracture or dislocation. The joint spaces are preserved. The soft tissues are unremarkable. XR/XR wrist RT min 3V IMPRESSION: Unremarkable examination of the right hand and wrist. Electronically signed by: Lauro Cavazos MD 11/13/2024 01:08 PM EDT
--- NOTE | ~2024-11-13 | XR_ITS ---
EXAMINATION: XR HAND 3 OR MORE VIEWS RIGHT, XR WRIST 3 OR MORE VIEWS RIGHT HISTORY: wrist pain COMPARISON: There are no prior studies available for comparison. FINDINGS: Six views of the right hand and wrist are submitted. Osseous mineralization is normal. There is no fracture or dislocation. The joint spaces are preserved. The soft tissues are unremarkable. XR/XR hand RT min 3V IMPRESSION: Unremarkable examination of the right hand and wrist. Electronically signed by: Lauro Cavazos MD 11/13/2024 01:08 PM EDT
[2024-11-13 12:42] VITALS: BP 129/66; PULSE 99; RESP 16; TEMP 36.6; O2SAT 100; BMI 26.4
--- NOTE | 2024-11-13 12:48 | ED.EXTPRO ---
HPI - Extremity Problem General Chief complaint: Extremity Injury, Upper Stated complaint: r wrist pain Time Seen by Provider: 11/13/24 12:45 Source: patient Mode of arrival: ambulatory Limitations: no limitations History of Present Illness ED Provider: Roberth Almendarez HPI Narrative: 49 yold female presents to the ED for wrist pain for the past 2 weeks without any blunt trauma. Patient denies any swelling, redness, ecchymosis, rash, fever, chills, or paralysis. Related Data Home Medications ?Medication ?Instructions ?Recorded ?Confirmed bupropion HCl 150 mg tablet,12 hr 150 mg PO DAILY 04/13/24 04/13/24 sustained-release duloxetine 60 mg capsule,delayed 60 mg PO DAILY 04/13/24 04/13/24 release meclizine 25 mg tablet 25 mg PO DAILY PRN Nausea And 04/13/24 04/13/24 Vomiting mesalamine 1,000 mg rectal 1 g LA BEDTIME PRN Ulcerative 04/13/24 04/13/24 suppository colitis norethindrone (contraceptive) 0.35 0.35 mg PO DAILY 04/13/24 04/13/24 mg tablet omeprazole 20 mg capsule,delayed 20 mg PO DAILY@0630 04/13/24 04/13/24 release ondansetron HCl 4 mg tablet 4 mg PO Q12H PRN nausea 04/13/24 04/13/24 rizatriptan 10 mg disintegrating 10 mg PO DIRECTED PRN Migraine 04/13/24 04/13/24 tablet Headache Previous Rx's ?Medication ?Instructions ?Recorded levofloxacin 750 mg tablet 750 mg PO DAILY #7 tabs 04/15/24 Allergies Allergy/AdvReac Type Severity Reaction Status Date / Time aspirin (ASA) AdvReac Unknown Verified 11/13/24 12:42 Review of Systems Review of Systems: right wirst pain Yes all other systems are reviewed and are negative PMFSH Past Medical History Medical History (Updated 11/14/24 @ 00:01 by Trista Pinzon) Renal calculi Surgical History H/O tubal ligation Social History Social History Household Members: None Housing: Apartment Do you presently have visiting nurse or other home services: No Patient Tobacco Use Status: Current everyday Tobacco user Tobacco use type: Smokeless Tobacco e-Cigarette/Vaping Use: Currently Using Advance Directives: No Advance Directives Information Provided: Yes Do you have a plan to hurt others: No Plan service: No Physical Exam Vital Signs: Vital Signs: Last Vital Signs Temp 97.8 F 11/13/24 14:23 Pulse 99 11/13/24 14:23 Resp 16 11/13/24 14:23 BP 129/66 11/13/24 14:23 Pulse Ox 100 11/13/24 14:23 O2 Del Method Room Air 11/13/24 14:23 BMI result Body Mass Index 26.4 Const: General: cooperative, healthy appearing, comfortable, no acute distress, well developed, alert, awake and Physically active Orientation/consciousness: patient oriented x3 HEENT: Head: Yes normal to inspection, Yes No palpable skull fracture present, Yes normocephalic, Yes atraumatic and No abrasion Eyes: General: appearance normal, both eyes and all related structures Neck: Neck: Yes normal visual inspection, Yes full ROM, Yes no lymphadenopathy, Yes no meningeal signs, Yes trachea midline, Yes supple, No anterior neck swelling and No tender Chest: Chest palpation & inspection: normal inspection of the chest and normal palpation of entire chest wall Resp: Effort & Inspection: normal respiratory effort and able to speak in complete sentences Auscultation: clear to auscultation bilaterally Cardio: Jugular venous distension: no JVD Heart sounds: S1 normal heart sound present and S2 normal heart sound present GI: Inspection: Yes normal to inspection Palpation (GI): Soft to palpation, not firm, nontender, no guarding and not rigid : General: Yes no CVA tenderness Back/Spine/Pelvis: Back: no CVA tenderness and No back tenderness Skin: General skin exam: no rashes or lesions noted, elasticity normal and turgor normal Neuro: General: patient oriented x3, gait normal, tone normal, moves all extremities, Normal light touch and pain sensation, no meningeal signs, no focal motor deficits, CN's II-XI intact bilaterally and normal sensation to monofilament Extrem: Elbow/forearm/wrist images:  1. tenderness on palpation. negative erythema, ecchymosis, deformities, crepitus, or red streaks. positive phalen and tinel sign. negative for signs of infectious tenosynovitis. rest of extremity is normal. motor, neuro, and vascular exam is intact. Psych: Appearance: grossly normal, well kempt and disheveled Medical Decision Making Medical Decision Making MDM Narrative: 49-year-old female history of ulcerative colitis presents to ED for right wrist pain for the past 2 weeks. Patient denies any swelling, redness, bluish black discoloration, or any blunt trauma. Patient denies any fever or chills. Patient is not on any control pills. Patient states she might have strained it when trying to push off her [id number] 2 weeks ago when he was trying to grab her sister. Physical exam negative for signs of DVT, arterial occlusion, necrotizing fasciitis, compartment syndrome, lymphangitis, cellulitis, or any aortic dissection. Or any other life-threatening etiology. Patient is sent for x-ray. 1:50pm: xrays are normal. Patient explained worrisome signs and informed to follow up immediately to the ED. Patient informed to follow up with orthopedic surgeon. Patient informed to continue taking Tylenol. Placed in velcro wrist splint Differential Diagnosis Differential Diagnoses: The differential diagnosis associated with the presentation includes (Sprain, fracture, carpal tunnel) Admission/Observation Consideration of admission/observation: Escalation of care including admission/observation considered Independent Interpretation I performed an independent interpretation of an: Plain X-Ray Radiology Impression Discussion of test interpretation with radiology: I have reviewed the radiologist's reading. Independent Historian Clinical information obtained from an independent historian. History obtained from or confirmed by: Other (Patient) Prescription Management I considered prescription management with: Pain Medication Discharge Plan Discharge Clinical Impression: Carpal tunnel syndrome Patient Disposition: Home, Self-Care Instructions: Carpal Tunnel Syndrome (DC), Wrist Sprain (ED) Additional Instructions: Recommend follow up with primary care provider and orthopedic surgeon for re-evaluation. Return to the ED immediately for any swelling, redness, bluish black discoloration, stiffness, fever, chills, rash, red streaks, or any other concerning symptoms. Continue taking Tylenol for pain. Recommend rest elevation and ice. EXAMINATION: XR HAND 3 OR MORE VIEWS RIGHT, XR WRIST 3 OR MORE VIEWS RIGHT HISTORY: wrist pain COMPARISON: There are no prior studies available for comparison. FINDINGS: Six views of the right hand and wrist are submitted. Osseous mineralization is normal. There is no fracture or dislocation. The joint spaces are preserved. The soft tissues are unremarkable. XR/XR wrist RT min 3V IMPRESSION: Unremarkable examination of the right hand and wrist. Electronically signed by: Lauro Cavazos MD 11/13/2024 01:08 PM EDT RP Prescriptions: No Action bupropion HCl 150 mg tablet sustained-release 12 hr 150 mg PO DAILY omeprazole 20 mg capsule,delayed release(DR/EC) 20 mg PO DAILY@0630 norethindrone (contraceptive) 0.35 mg tablet 0.35 mg PO DAILY duloxetine 60 mg capsule,delayed release(DR/EC) 60 mg PO DAILY ondansetron HCl 4 mg tablet 4 mg PO Q12H PRN (Reason: nausea) meclizine 25 mg Tablet 25 mg PO DAILY PRN (Reason: Nausea And Vomiting) rizatriptan 10 mg tablet,disintegrating 10 mg PO DIRECTED PRN (Reason: Migraine Headache) mesalamine 1,000 mg Suppository 1 g LA BEDTIME PRN (Reason: Ulcerative colitis) levofloxacin 750 mg tablet 750 mg PO DAILY Qty: 7 0RF Referrals: [facility] [place] [facility] Sur[facility] [Provider Group] Referral Note: Wrist sprain restless carpal tunnel syndrome Migdalia Davis MD [Primary Care Provider, Internal Medicine] - 2 days Referral Note: Right wrist sprain versus carpal tunnel syndrome Clinical Impression: Carpal tunnel syndrome; Sprain of wrist Stand Alone Forms: Work/School Release Interventions: ED Discharge Assessment Last Done: 11/13/24 14:23 Discharge Date/Time: 11/13/24 14:24 Print Language: Yoruba
--- NOTE | 2024-11-13 14:21 | PC.NURSE ---
PT WAS SE[facility] BY [facility]. SHE WAS FITTED AND PLACED IN A VELCRO WRIST SPLINT. RECOMMEND FOLLOW UP WITH ORTHO
[2024-11-13 14:23] VITALS: BP 129/66; PULSE 99; RESP 16; TEMP 36.6; O2SAT 100
--- OUTSIDE RECORDS SUMMARY | 2024-11-13 14:56 | XMS_ITS | Clinical Summary ---
Author Organization [facility] Address [address] [place] [address] Care Team Providers Care Screen Printer Helper Name Role Phone Ceci Lozada MD Primary Care Provider [phone] Allergies No known active allergies Medications Medication Sig Dispensed Refills Start Date End Date Status buPROPion (WELLBUTRIN SR) 150 MG 12 hr tablet 0 02/25/2021 Active DULoxetine (CYMBALTA) DR capsule 60 mg 0 02/25/2021 Active meclizine (ANTIVERT) 25 MG tablet 0 12/01/2020 Active mesalamine (APRISO) 0.375 g 24 hr capsule 0 02/23/2021 Active omeprazole (PriLOSEC) 20 MG capsule 0 01/20/2021 Active rizatriptan (MAXALT-BARTENDERS) 10 MG disintegrating tablet 0 02/23/2021 Act yu norethindrone (MICRONOR) 0.35 MG tablet 0 02/25/2021 Active naproxen (NAPROSYN) 500 MG tablet 0 02/23/2021 Active Active Problems Problem Noted Date Diagnosed Date Bruising 03/04/2021 Ulcerative proctitis with complication Coagulopathy 05/12/2016 Anemia 10/21/2011 Family History Medical History Relation Name Comments Heart attack Brother COPD Father Diabetes Father Cancer Mother Cancer Paternal Aunt Cancer Paternal Grandfather Cancer Paternal Uncle Diabetes Sister Relation Name Status Comments Brother Father Mother Paternal Aunt Paternal Grandfather Paternal Uncle Sister Social History Tobacco Use Types Packs/Day Years Used Date Smoking Tobacco: Former Cigarettes 1 Q uit: 05/09/2015 Smokeless Tobacco: Never Alcohol Use Standard Drinks/Week Comments Not Currently 0 (1 standard drink = 0.6 oz pur e alcohol) Sex and Gender Information Value Date Recorded Sex Assigned at Not on file Gender Identity Not on file Sexual Orientation Not on file Job Start Date Occupation Industry Not on file Not on file Not on file Last Filed Vital Signs Vital Sign Reading Time Taken Comments Blood Pressure 122/57 04/20/2021 2:46 PM EST Pulse 88 04/20/2021 2:46 PM EST Temperature 36.9 C (98.4 F) 04/20/2021 2:46 PM EST Respiratory Rate - - Oxygen Saturation 98% 04/20/2021 2:46 PM EST Inhaled Oxygen Concentration - - Weight 71.1 kg (156 lb 12.8 oz) 04/20/2021 2:46 PM EST Height 162.6 cm (5' 4 ) 04/20/2021 2:46 PM EST Body Mass Index 26.91 04/20/2021 2:46 PM EST Plan of Treatment Health Maintenance Due Date Last Done Comments Hepatitis B Vaccines (1 of 3 - 3-dose series) 1975 Hepatitis C Screening 1975 Depression Screening 1987 Preventative Health Evaluation 1993 Cervical Cancer Screening (Pap Smear) 02/12/1996 Colon Cancer Screening (Colonoscopy) 02/12/2020 DTap / Tdap / Td (2 - Td or Tdap) 10/20/2021 10/21/2011 COVID-19 Vaccine (3 - season) 2024 11/28/2020, 10/31/2020 Influenza Vaccine (#1) 2025 9, 12/30/2014, 02/08/2013, Additional history exists Pneumococcal Vaccine Aged Out No long er eligible based on patient's age to complete this topic RSV Ped < 20 months Aged Out No longe r eligible based on patient's age to complete this topic Care Teams Screen Printer Helper Relationship Specialty Start Date End Date Ceci Lozada MD [address] [place] [address] PCP - General Internal Medicine 03/04/21
--- OUTSIDE RECORDS SUMMARY | 2024-11-13 14:56 | XMS_ITS | Clinical Summary ---
Author Organization [facility] [address] [facility] Address [address] [facility] [place] [address] Phone Care Team Providers Care Creative/Art Director Name Role Phone Migdalia Villalobos MD Primary Care Prov ider Allergies No known active allergies Medications acetaminophen (TYLENOL 8 HOUR) 650 mg 8 hr tablet Take 1 tablet (650 mg total) by mouth every 8 (eight) hours if needed. 4 Active budesonide 9 mg tablet,delayed and ext.release Take 9 mg by mouth daily for 30 days. 4 Active diclofenac (VOLTAREN) 1 % topical gel APPLY 1 GRAM TOPICALLY 2 TIMES DAILY. 4 Active omeprazole (PriLOSEC) [address] capsule Take 1 capsule (20 mg total) by mouth 1 (one) time each day. 1 Active azaTHIOprine (IMURAN) 50 mg tablet Take 1 tablet (50 mg total) by mouth 2 (two) times a day. Active cyclobenzaprine (FLEXERIL) 10 mg tablet TAKE 1 TABLET BY MOUTH AT BEDTIME NEEDED FOR MUSCLE SPASMS. 30 tablet 5 Active rizatriptan (MAXALT-GAS MAKER) 10 mg disintegrating tablet TAKE 1 TABLET BY MOUTH NEEDED FOR MIGRAINE. MAY REPEAT IN 2 HOURS IF NEEDED (MAX 2 PER 24 HRS) 9 tablet 2 5 Active ondansetron (ZOFRAN) 4 mg tablet TAKE 1 TABLET BY MOUTH EVERY 12 HOURS NEEDED FOR NAUSEA. 120 tablet 1 5 Active DULoxetine (CYMBALTA) [address] capsule TAKE 1 CAPSULE BY MOUTH EVERY DAY 90 capsule 1 5 Active buPROPion SR (WELLBUTRIN SR) 150 mg 12 hr tablet TAKE 1 TABLET BY MOUTH EVERY DAY 90 tablet 1 5 Active Active Problems Problem Noted Date Diagnosed Date Overweight (BMI 25.0-29.9) 08/22/2024 Chronic diarrhea 03/16/2022 Vitamin B12 deficiency 07/25/2018 Irritant contact dermatitis 01/10/2018 Overview (02/24/2024): Last Assessment & Plan: Reviewed findings with patient. Reviewed [facility] guidelines and encouraged her specifically to Baking soda soak daily Apply ointment twice daily x 2 weeks, then daily with Vaseline the other time of day Stop soap on the vulva Stop wearing pads Come back in 6 weeks Try Benadryl to prevent itching at night Lichen simplex chronicus 01/10/2018 Overview (02/24/2024): Last Assessment & Plan: Same as above. 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 Colposcopy 03/22/16, negative biopsy. Pap 2016 LSIL, colpo 03/10/17 - Bx & ECC neg Repeat co-testing 12 months. 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 Thoracic back pain 09/06/2013 Breast mass 07/28/2012 Anemia 10/21/2011 Depression 10/21/2011 Kidney stones 10/21/2011 GERD (gastroesophageal reflux disease) 04/25/201 2 Lumbago 09/01/2011 Migraine headache 09/01/2011 Encounters Date Type Department Care Team Description 10/16/2024 Telephone Adult Medicine [address] [phone] Migdalia Carpio MD Forms/questionnaires (EAEDC Form) 10/09/2024 2:30 PM EDT Office Visit Obstetrics and Gynecology [address] [phone] Nichol Shelby CNM Encounter for gynecological examination without abnormal finding (Primary Dx); Screen for STD (sexually transmitted disease); Amenorrhea; Papanicolaou smear of cervix with low grade squamous intraepithelial lesion (LGSIL); Surveillance for control, oral contraceptives 10/08/2024 1:50 PM EDT Lab Draw Station - [address] [place] [phone] Ulcerative rectosigmoiditis with complication ([facility] V24, [facility] V28) 10/08/2024 1:20 PM EDT Office Visit Gastroenterology - [place] [address] [place] [address] Jackelin Cordero PA Ulcerative rectosigmoiditis with complication ([facility] V24, [facility] V28) 08/22/2024 3:00 PM EDT Office Visit Adult Medicine [address] [phone] Renu Bettencourt PA Routine general medical examination at a health care facility (Primary Dx); Overweight (BMI 25.0-29.9); Screening for cardiovascular condition from Last 3 Months Immunizations Name Administration Dates Next Due Hepatitis B (Rzgbvol-Z-Edrro , Recombivax HB-Adult) 19yo and older 11/22/2022,09/06/2022,01/04/2022 Influenza Quadravalent, MDCK , 0.5ml, preservative free (Flucelvax) 6mo and older 02/17/2023,06/08/2021,07/24/2018,2016 Influenza Quadravalent, MDCK , 0.5ml, with preservative (Flucelvax) 6mo and older 01/24/2020 Influenza Quadrivalent, 0.5m l, preservative free (Fluarix; FluLaval; Fluzone) ages 6mo and older (Afluria) 3yo and older 01/24/2020 Influenza trivalent, 0.5mL, preservative free (Fluarix; FluLaval; Fluzone) ages 6mo and older (Afluria) 3 years and older 03/08/2024,01/19/2016,12/30/2014,2012,03/02/2012 Influenza trivalent, with preservative (Fluzone; Afluria) 6mo and older 02/08/2013,03/02/2012 Influenza, Unspecified 01/23/2014 PPD Test 07/26/2013 Td Tetanus diptheria (Tdvax) 7yo and older 11/06/2021 Tdap Tetanus diptheria acell ular pertussis (Boostrix; Adacel) 7yo and older 10/21/2011,10/07/2008 Surgical History Surgery Date Site/Laterality Comments SHOULDER SURGERY 1997 Right PROCEDURE: HISTORICAL SHOULDER SURGERY TUBAL LIGATION PROCEDURE: HISTORICAL TUBAL LIGATION LIPOMA RESECTION 08/2011 PROCEDURE: SKIN TISSUE EXCISION(LIPOMA); COMMENT: right breast lipoma VAGINOSCOPY 2001 PROCEDURE: ID COLPOSCOPY CERVIX BX CERVIX & ENDOCRV CURRETAGE CERVICAL BIOPSY W/ LOOP ELECTRODE EXCISION PROCEDURE: ID CONIZATION CERVIX W/WO D&C RPR ELTRD EXC COLONOSCOPY 03/19/2016 PROCEDURE: HISTORICAL COLONOSCOPY; COMMENT: Dr. Galarza - ulcerative proctitis BREAST BIOPSY 12/17/2013 Left PROCEDURE: BX BREAST; PERC NEEDLE CORE W/IMAG GUID; COMMENT: cyst asp. apocrine cyst BREAST SURGERY 08/22/2012 Right PROCEDURE: ID UNLISTED PROCEDURE BREAST; COMMENT: exc bx lipoma COLONOSCOPY 01/18/2018 PROCEDURE: HISTORICAL COLONOSCOPY; COMMENT: negative, biopsy pending COLONOSCOPY 10/14/2020 PROCEDURE: HISTORICAL COLONOSCOPY; COMMENT: ulcerative rectosigmoiditis COLONOSCOPY 08/07/2021 PROCEDURE: HISTORICAL COLONOSCOPY; COMMENT: left sided colitis - recommend Apriso - 1.125 gm daily Medical History Medical History Date Comments Lumbago 09/01/2011 DX:Lumbago Migraine headache 09/01/2011 DX:Migraine he adache; COMMENT: w/aura Reflux 09/01/2011 DX:Reflux Depression DX:Depression Ulcerative proctitis with re ctal bleeding (CMS/HCC V24, CMS/HCC V28) 07/14/2016 DX:Ulcerative proc titis with rectal bleeding (HCC) Vitamin D deficiency 09/16/2016 DX:Vitamin D deficiency Lichen simplex chronicus 01/10/2018 DX:Lich en simplex chronicus Irritant contact dermatitis 01/10/2018 DX:I rritant contact dermatitis Papanicolaou smear of cervix with low grade squamous intraepithelial lesion (LGSIL) 03/22/2016 DX:Papanicolaou smear of cer vix with low grade squamous intraepithelial lesion (LGSIL); COMMENT: Hx LEEP years ago. Colposcopy 03/22/16, negative biopsy. Pap 2016 LSIL, colpo 03/10/17 - Bx & ECC neg Repeat co-testing 12 months. Mastodynia, female 09/17/2013 DX:Mastodynia , female Positive PPD, treated 09/06/2013 DX:Positiv e PPD, treated Thoracic back pain 09/06/2013 DX:Thoracic b ack pain Breast mass 07/28/2012 DX:Breast mass Kidney stones 10/21/2011 DX:Kidney stones Anemia 10/21/2011 DX:Anemia Vitamin B12 deficiency 07/25/2018 DX:Vitami n B12 deficiency Trichomonas infection DX:Trichom onas infection; COMMENT: 01/2023- treated Family History Medical History Relation Name Comments Uterine cancer Aunt 1 fathers side Breast cancer Aunt 2 fathers side No Known Problems Brother 1 No Known Problems Brother 2 No Known Problems Daughter 1 No Known Problems Daughter 2 COPD Father Colon polyps Father Diabetes Father Heart attack Father Colon cancer Father's side 1 3nd degree r elative, first cousin Colon cancer Father's side 2 third degree COPD Half-Brother 1 Heart attack Half-Brother 1 half maternal Other: HIV Half-Brother 1 Alcohol abuse Half-Brother 2 half materna l Cirrhosis Half-Brother 2 No Known Problems Half-Sister 1 half mate rnal COPD Half-Sister 2 Diabetes Half-Sister 2 half maternal Stroke Half-Sister 2 COPD Half-Sister 3 half maternal CA Bladder Mother + smoker Diabetes Mother Breast cancer Mother's side 1 cousin, 30s , 3rd degree relative. Colon cancer Mother's side 2 mother's cou sin, 40s Liver cancer Paternal Grandmother No Known Problems Son Other: tongue cancer Uncle 1 tongue cancer, fathers side Lung cancer Uncle 2 Paternal + smoker Ovarian cancer Neg Hx Relation Name Status Comments Aunt 1 Aunt 2 Alive Brother 1 Alive Brother 2 Alive Daughter 1 Alive Daughter 2 Alive Father Father's side 1 Alive Father's side 2 Alive Half-Brother 1 Half-Brother 2 Half-Sister 1 Alive Half-Sister 2 Alive Half-Sister 3 Alive Maternal Grandfather Maternal Grandmother Mother Alive Mother's side 1 Alive Mother's side 2 Alive Paternal Grandfather Paternal Grandmother Son Alive Uncle 1 Uncle 2 Paternal Social History Tobacco Use Types Packs/Day Years Used Date Smoking Tobacco: Former Cigarettes Q uit: 05/09/2005 Smokeless Tobacco: Never Tobacco Cessation:Counseling Given: Not Answered Alcohol Use Standard Drinks/Week Comments No 0 (1 standard drink = 0.6 oz pur e alcohol) Housing Instability Answer Date Recorde d Are you worried that in the next 2 months you may not have stable housing? No 08/21/2024 Food Access & Nutrition Answer Date Rec orded Do you have access to a vari ety of food including fruits and vegetables? No 08/21/2024 Access to Healthcare Answer Date Record ed Within the last 3 months, ho w many times did you visit the emergency department for your medical care? 0 08/21/2024 Health Literacy Answer Date Recorded How often do you need to hav e someone help you when you read instructions, pamphlets, or other written material from your doctor or pharmacy? Rarely 08/21/2024 Caregiver: How often do you need to have someone help you when you read instructions, pamphlets, or other written material from your doctor or pharmacy? Not on file 08/21/2024 Financial Risk Answer Date Recorded How hard is it for you to pa y for the very basics like food, housing, medical care, and air conditioning / heating? Somewhat hard 08/21/2024 Transportation Answer Date Recorded Has the lack of transportati on kept you from meetings, work, or from getting things needed for daily living? No Has the lack of transportati on kept you from medical appointments or from getting medications? No 08/21/2024 Social Isolation Answer Date Recorded How often do you feel lonely or isolated from ose around you? Rarely 08/21/2024 Food Risk Answer Date Recorded Within the past 12 months we worried whether our food would run out before we got money to buy more. Never true 08/21/2024 Within the past 12 months th e food we bought just didn't last and we didn't have money to get more. Never true 08/21/2024 Dependent Care Answer Date Recorded Do you need help finding or paying for care for your loved ones. For example, children's attendant or elderly care for an older adult? No 08/21/2024 Education Answer Date Recorded Do you think completing more education or training, like finishing a GED, going to college, or learning a trade, would be helpful for you? Yes 08/21/2024 Employment and Income Answer Date Recor ded During the last four weeks, have you been actively looking for work? No 08/21/2024 Living Situation Answer Date Recorded What is your living situation? 0 08/21/2024 Comments No Sex and Gender Information Value Date Recorded Sex Assigned at Not on file Legal Sex Female 10:46 PM EST Gender Identity Not on file Sexual Orientation Not on file Obstetrics History Para Term AB IAB SAB Ectopic Multiple Livin g Live Births 3 3 3 0 0 3 Date Outcome GA Total Labor Labor/2nd/3rd Weight Sex Type Anes PTL Minda A1 A5 Name Clin Term Term Term Last Filed Vital Signs Vital Sign Reading Time Taken Comments Blood Pressure 126/78 10/09/2024 2:45 PM EDT Pulse 94 10/09/2024 2:45 PM EDT Temperature 36.8 C (98.2 F) 08/22/2024 2:53 PM EDT Respiratory Rate 15 08/22/2024 2:53 PM EDT Oxygen Saturation 98% 10/08/2024 1:18 PM EDT Inhaled Oxygen Concentration - - Weight 69.9 kg (154 lb) 10/09/2024 2:45 PM EDT Height 162.6 cm (5' 4 ) 10/08/2024 1:18 PM EDT Body Mass Index 26.43 10/08/2024 1:18 PM EDT Plan of Treatment Upcoming Encounters Date Type Department Care Team (Late st Contact Info) Description 12/17/2024 2:15 PM EDT Office Visit [facility] Hematology Oncology [address] [place] [phone] Wiliam Serrano MD [address] [place] [address] 01/09/2025 2:00 PM EDT Office Visit Gastroenterology - [place] 175 [facility] 175 [facility] [address] [place] [address] Jackelin Cordero PA [address] [phone] 02/25/2025 1:15 PM EDT Office Visit Adult Medicine [address] [phone] Migdalia Villalobos MD [address] [place], [place] 08/26/2025 3:00 PM EDT Office Visit Adult [address] [phone] Renu Bettencourt PA [address] [place], [place] Health Maintenance Due Date Last Done Comments Colorectal Cancer Screening: Colonoscopy 08/08/2023 08/07/2021 Influenza Vaccine (#1) 2025 , 02/17/2023, 06/08/2021, Additional history exists Depression Screening 08/21/2025 08/21/2024, 12/09/19 24 Social Influencers of Health Screening 08/21/2025 08/21/2024 Cervical Cancer Screening: HPV 10/09/2025 10/09/2024, 12/29/2021 Breast Cancer Screening 10/31/2025 11/01/19 24, 11/01/2023, 10/27/2022, Additional history exists Cholesterol Screening (Lipid Panel) 08/28/2029 08/28/2024, 04/12/2023 DTaP,Tdap,and Td Vaccines (4 - Td or Tdap) 11/07/2031 11/06/2021, 10/21/2011, 10/07/2008 COVID-19 Vaccine Discontinued 11/28/2020, 10/31/2020 Hepatitis B Vaccines Completed 11/22/2022, 09/06/2022, 01/04/2022 HIV Screening Completed 10/09/2024, 06/08/2023 Hepatitis C Screening Completed 10/09/2024, 024 HIB Vaccines Aged Out No longer eligi ble based on patient's age to complete this topic HPV Vaccines Aged Out No longer eligi ble based on patient's age to complete this topic Hepatitis A Vaccines Aged Out No long er eligible based on patient's age to complete this topic IPV Vaccines Aged Out No longer eligi ble based on patient's age to complete this topic MMR Vaccines Aged Out No longer eligi ble based on patient's age to complete this topic Meningococcal ACWY Vaccine Aged Out N o longer eligible based on patient's age to complete this topic Meningococcal B Vaccine Aged Out No l onger eligible based on patient's age to complete this topic Pneumococcal Vaccine: Pediatrics (0 to 5 Years) and At-Risk Patients (6 to 49 Years) Discontinued RSV Immunization Patients Under 20 months Aged Out No longer eligible based on patient's age to complete this topic Varicella Vaccines Aged Out No longer eligible based on patient's age to complete this topic Procedures Procedure Name Priority Date/Time Associated Diagnosis Comments HIV 1, 2 ANTIBODY, P24 ANTIGEN WITH REFLEX TO DIFFERENTIATION Routine 10/09/2024 3:25 PM EDT Screen for STD (sexually transmitted disease) HEPATITIS B SURFACE ANTIGEN WITH CONFIRMATION Routine 10/09/2024 3:25 PM EDT Screen for STD (sexually transmitted disease) TREPONEMA PALLIDUM ANTIBODY WITH REFLEX TO RPR AND PARTICLE AGGLUTINATION Routine 10/09/2024 3:25 PM EDT Screen for STD (sexually transmitted disease) HEPATITIS C ANTIBODY Routine 10/09/2024 3:25 PM EDT Screen for STD (sexually transmitted disease) ESTRADIOL Routine 10/09/2024 3:25 PM EDT Amenorrhea FOLLICLE STIMULATING HORMONE Routine 10/09/2024 3:25 PM EDT Amenorrhea CHLAMYDIA TRACHOMATIS AND NEISSERIA GONORRHOEAE BY TMA, THINPREP Routine 10/09/2024 3:22 PM EDT Encounter for gynecological examination without abnormal finding PAP SMEAR Routine 10/09/2024 3:22 PM EDT Encounter for gynecological examination without abnormal finding HPV WITH REFLEX GENOTYPE Routine 10/09/2024 3:22 PM EDT Encounter for gynecological examination without abnormal finding TRICHOMONAS VAGINALIS PCR Routine 10/09/2024 3:22 PM EDT Encounter for gynecological examination without abnormal finding THIOPURINE METABOLITES Routine 1:46 PM EDT Ulcerative rectosigmoiditis with complication (CMS/HCC V24, CMS/HCC V28) FERRITIN Routine 10/08/2024 1:46 PM EDT Ulcerative rectosigmoiditis with complication (CMS/HCC V24, CMS/HCC V28) IRON AND TIBC Routine 10/08/2024 1:46 PM EDT Ulcerative rectosigmoiditis with complication (CMS/HCC V24, CMS/HCC V28) CBC WITH AUTO DIFFERENTIAL Routine 08/28/2024 10:22 AM EDT Screening for cardiovascular condition CBC AND DIFFERENTIAL Routine 08/28/2024 10:22 AM EDT Screening for cardiovascular condition COMPREHENSIVE METABOLIC PANEL Routine 08/28/2024 10:22 AM EDT Screening for cardiovascular condition THYROID STIMULATING HORMONE WITH REFLEX TO FREE T4 AND FREE T3 Routine 08/28/2024 10:22 AM EDT Screening for cardiovascular condition LIPID PANEL WITH REFLEX TO DIRECT LDL Routine 08/28/2024 10:22 AM EDT Screening for cardiovascular condition HM DEPRESSION SCREENING Routine 12/09/2023 SCREENING MAMMOGRAPHY BI 2-VIEW BREAST INC CAD Routine 11/01/2023 2:50 PM EDT Encounter for screening mammogram for malignant neoplasm of breast EXTERNAL COLONOSCOPY REPORT Routine 08/07/2021 2:13 PM EDT from Last 3 Months or Most Recently Relevant to Health Maintenance Results * Hepatitis C antibody (10/09/2024 3:25 PM EDT) Hepatitis C Antibody Negative Negative LAB CHEMISTRY METHOD 10/09/2024 10:48 PM EDT [facility] Blood Venous blood specimen / Unknown Venipuncture / Unknown 10/09/2024 3:25 PM EDT 10/09/2024 3:25 PM EDT Nichol Shelby CNM LAB BLOOD ORDERABLES Final Res ult [facility] [address] [place] [address], * HIV 1,2 antibody, p24 antigen with reflex to differentiation (10/09/2024 3:25 PM EDT) HIV Combo AB/AG Negative Negative LAB CHEMISTRY METHOD 10/09/2024 10:49 PM EDT [facility] Blood Venous blood specimen / Unknown Venipuncture / Unknown 10/09/2024 3:25 PM EDT 10/09/2024 3:25 PM EDT Narrative [facility] - 10/09/2024 10:49 PM EDT This assay is a 4th generation assay allowing for earlier detection of HIV infection by detecting the presence of the HIV-1 p24 antigen as well as the traditional antibodies to HIV type 1 (including group O) and type 2. Use of a 4th generation assay is the current CDC recommendation for HIV screening. Nichol Shelby [facility] BLOOD ORDERABLES Final Res ult Performing Organization Address [facility]/ZIP Co de Phone Number [facility] [address] [place] [address], [place] [phone] * Hepatitis B surface antigen with reflex to confirmation (10/09/2024 3:25 PM EDT) Hepatitis B Surface Ag Negative Negative LAB CHEMISTRY METHOD 10/09/2024 10:20 PM EDT [facility] Blood Venous blood specimen / Unknown Venipuncture / Unknown 10/09/2024 3:25 PM EDT 10/09/2024 3:25 PM EDT Narrative [facility] - 10/09/2024 10:20 PM EDT Over the counter supplements containing high doses of biotin may interfere with this assay. If interference is suspected, patients shoud be retested after refraining from biotin supplements for 72 hours. Nichol Shelby [facility] BLOOD ORDERABLES Final Res ult Performing Organization Address [facility] Co de Phone Number [facility] [address] [place] [address], [place] [phone] * Treponema pallidum antibody with reflex to RPR and particle agglutination (10/09/2024 3:25 PM EDT) [facility] T. Pallidum Antibodies Negative Negative LAB CHEMISTRY METHOD 10/09/2024 10:20 PM EDT [facility] Blood Venous blood specimen / Unknown Venipuncture / Unknown 10/09/2024 3:25 PM EDT 10/09/2024 3:25 PM EDT Nichol Shelby [facility] BLOOD ORDERABLES Final Res ult Performing Organization Address City/[facility]/ZIP Co de Phone Number [facility] [address] [place] [address], [place] [phone] * Estradiol (10/09/2024 3:25 PM EDT) Pathologist [facility] Estradiol <11 See below pcg/mL LAB CHEMISTRY METHOD 10/09/2024 8:58 PM EDT [facility] Comment: ESTRADIOL REFERENCE RANGES (PG/ML) FEMALES NORMALLY MENSTRUATING: FOLLICULAR PHASE 21.4 - 164.8 MIDCYCLE PEAK 49.9 - 367.2 LUTEAL PHASE 40.2 - 259.0 POSTMENOPAUSAL: ON HRT <11 - 462.1 UNTREATED <11 - 58.3 Fulvestrant has been shown to cross-react with the estradiol assay and cause falsely elevated results. For patients being treated with fulvestrant, Estradiol ultrasensitive should be ordered. This test is performed by LC/MS and is not expected to show cross reactivity to fulvestrant. Blood Venous blood specimen / Unknown Venipuncture / Unknown 10/09/2024 3:25 PM EDT 10/09/2024 3:25 PM EDT Nichol HASSAN LAB BLOOD ORDERABLES Final Res ult [facility] [address] [place] [address], [place] [phone] * Follicle stimulating hormone (10/09/2024 3:25 PM EDT) [facility] Follicle Stimulating Hormone 96.9 See Comment mIU/mL LAB CHEMISTRY METHOD 10/09/2024 8:58 PM EDT [facility] Comment: FSH REFERENCE RANGES (MIU/ML) FEMALES NORMALLY MENSTRUATING: FOLLICULAR PHASE 2.3 - 12.6 MIDCYCLE PEAK 5.2 - 17.5 LUTEAL PHASE 1.7 - 9.5 POSTMENOPAUSAL: ON HRT 5.9 - 72.8 UNTREATED 12.7 - 132.2 Blood Venous blood specimen / Unknown Venipuncture / Unknown 10/09/2024 3:25 PM EDT 10/09/2024 3:25 PM EDT us Nichol Shelby CNM LAB BLOOD ORDERABLES Final Res ult [facility] [address] [place] [address], [place] [phone] * Chlamydia trachomatis and neisseria gonorrhoeae by tma, thinprep (10/09/2024 3:22 PM EDT) N. gonorrhoeae, RNA Probe Negative Negative LAB MICROBIOLOGY METHOD 10/11/2024 1:49 PM EDT [facility] Chlamydia, RNA Probe Negative Negative LAB MICROBIOLOGY METHOD 10/11/2024 1:49 PM EDT [facility] Brushing/Spatula Cervix uteri structure / Unknown 10/09/2024 3:22 PM EDT 10/11/2024 8:00 AM EDT us Nichol Shelby CNM LAB CYTOLOGY ORDERABLES Final Result Performing Organization Address City/[facility]/ZIP Co de Phone Number [facility] [address] [place] [address], [place] [phone] * HPV with reflex genotype (10/09/2024 3:22 PM EDT) HPV Negative Negative LAB MICROBIOLOGY METHOD 10/11/2024 2:07 PM EDT [facility] Brushing/Spatula Cervix uteri structure / Unknown 10/09/2024 3:22 PM EDT 10/11/2024 8:00 AM EDT us Nichol Shelby CNM LAB MOLECULAR DIAGNOSTICS ORDE RABLES Final Result [facility] [address] [place] [address], [place] [phone] * Trichomonas vaginalis molecular study (10/09/2024 3:22 PM EDT) Trichomonas vaginalis Negative Negative LAB MICROBIOLOGY METHOD 10/11/2024 1:59 PM EDT [facility] Brushing/Spatula Cervix uteri structure / Unknown 10/09/2024 3:22 PM EDT 10/11/2024 8:00 AM EDT Nichol Shelby CN LAB BLOOD ORDERABLES Final Res ult [facility] [address] [place] [address], [place] [phone] * Pap smear (10/09/2024 3:22 PM EDT) Interpretation Negative for intraepithelial lesion or malignancy 10/17/2024 3:28 PM EDT [facility] Clinical Information LSIL 2021 CXCB NEG 10/17/2024 3:28 PM EDT [facility] General Categorization Negative 10/17/2024 3:28 PM EDT [facility] Specimen Adequacy Satisfactory for evaluation, endocervical/bautista sformation zone component present 10/17/2024 3:28 PM EDT [facility] Pap Methodology Liquid Based Pap Test 10/17/2024 3:28 PM EDT [facility] Disclaimer The Pap test is a screening test which carries an inherent false negative rate. These test results should be correlated with the patient's clinical findings and history. This Pap test was processed using an automated screening system. Technical cytopathology services provided by [facility], at [address] [place] [id number] (CLIA # [id number]/Alvarez Perea MD, [employer].) 10/17/2024 3:28 PM EDT [facility] Console Pap Interpretation Reported 10/17/2024 3:28 PM EDT [facility] Brushing/Spatula Cervix uteri structure / Unknown 10/09/2024 3:22 PM EDT 10/09/2024 3:22 PM EDT Nichol Shelby [place] LAB CYTOLOGY ORDERABLES Final Result [facility] [address] [place] [address], * Thiopurine metabolites (10/08/2024 1:46 PM EDT) 6-Thioguanine 238 235 - 400 10/16/2024 4:39 PM EDT [facility] Comment: UNITS OF MEASURE: pmol/8x10(8)RBC (Note) This test was developed and its analytical performance characteristics have been determined by [facility]. It has not been cleared or approved by the FDA. This assay has been validated pursuant to the CLIA regulations and is used for clinical purposes. 6-Methylmercaptop urine <500 <5700 10/16/2024 4:39 PM EDT [facility] Comment: UNITS OF MEASURE: pmol/8x10(8)RBC (Note) These results are useful in assessing a patient's metabolism of azathioprine (AZA) or 6-mercaptopurine (6-MP). A 6-thioguanine (6-TG) level greater than 235 pmol/8x10(8) RBC has been associated with remission and very high levels have been associated with leucopenia. 6-methylmercaptopurine (6-MMP) levels greater than 5700 pmol/8x10(8) RBC may be associated with hepatoxicity. This test was developed and its analytical performance characteristics have been determined by [facility]. It has not been cleared or approved by the FDA. This assay has been validated pursuant to the CLIA regulations and is used for clinical purposes. [facility] [address] [facility] [address] [facility] [address] [facility] [address] Christen Chew MD, PhD Test Performed at: [facility] [address] [facility] [address] [place] [address] Tianna Chew MD, PhD Blood Venous blood specimen / Unknown Venipuncture / Unknown 10/08/2024 1:46 PM EDT 10/08/2024 1:46 PM EDT us Jackelin GIBSON LAB BLOOD ORDERABLES Final Re sult [facility] [address] [place] [address] * (ABNORMAL) Iron and TIBC (10/08/2024 1:46 PM EDT) Iron 45 40 - 150 mcg/dL LAB CHEMISTRY METHOD 10/08/2024 7:05 PM EDT [facility] TIBC 440 250 - 450 mcg/dL LAB CHEMISTRY METHOD 10/08/2024 7:05 PM EDT [facility] Iron Saturation 10(L) 15 - 50 % LAB CHEMISTRY METHOD 10/08/2024 7:05 PM EDT [facility] Blood Venous blood specimen / Unknown Venipuncture / Unknown 10/08/2024 1:46 PM EDT 10/08/2024 1:46 PM EDT us Jackelin GIBSON LAB BLOOD ORDERABLES Final Re sult [facility] [address] [place] [address], * (ABNORMAL) Ferritin (10/08/2024 1:46 PM EDT) Ferritin 5(L) 8 - 252 ng/mL LAB CHEMISTRY METHOD 10/08/2024 7:11 PM EDT [facility] Blood Venous blood specimen / Unknown Venipuncture / Unknown 10/08/2024 1:46 PM EDT 10/08/2024 1:46 PM EDT us Jackelin GIBSON LAB BLOOD ORDERABLES Final Re sult Performing Organization Address City/[facility]/ZIP Co de Phone Number [facility] [address] [place] [address], [place] [phone] * Thyroid stimulating hormone with reflex to free t4 and free t3 (08/28/2024 10:22 AM EDT) [facility] TSH 1.79 0.40 - 4.00 mcIU/mL LAB CHEMISTRY METHOD 08/28/2024 2:32 PM EDT [facility] Blood Venous blood specimen / Unknown Venipuncture / Unknown 08/28/2024 10:22 AM EDT 08/28/2024 10:22 AM EDT Renu GIBSON LAB BLOOD ORDERABLES Final Resu lt Performing Organization Address [facility]/ZIP Co de Phone Number [facility] [address] [place] [address], [place] [phone] * Lipid panel with reflex to direct LDL (08/28/2024 10:22 AM EDT) [facility] Cholesterol 187 0 - 200 mg/dL LAB CHEMISTRY METHOD 08/28/2024 2:05 PM EDT [facility] Triglycerides 56 0 - 150 mg/dL LAB CHEMISTRY METHOD 08/28/2024 2:05 PM EDT [facility] HDL 81 >=40 mg/dL LAB CHEMISTRY METHOD 08/28/2024 2:05 PM EDT [facility] LDL Calculated 95 0 - 100 mg/dL LAB CHEMISTRY METHOD 08/28/2024 2:05 PM EDT [facility] VLDL Cholesterol Enrike 11.2 mg/dL LAB CHEMISTRY METHOD 08/28/2024 2:05 PM EDT [facility] Non HDL Chol. (LDL+VLDL) 106 <145 mg/dL LAB CHEMISTRY METHOD 08/28[facility]2024 [facility] Chol/HDL Ratio 2.3 0.0 - 4.4 LAB CHEMISTRY METHOD 08/28/2024 2:05 PM EDT [facility] Blood Venous blood specimen / Unknown Venipuncture / Unknown 08/28/2024 10:22 AM EDT 08/28/2024 10:22 AM EDT us Renu GIBSON LAB BLOOD ORDERABLES Final Resu lt [facility] [address] [place] [address], [place] [phone] * (ABNORMAL) CBC auto differential (08/28/2024 10:22 AM EDT) WBC 5.3 4.8 - 10.8 K/mcL LAB HEMETOLOGY METHOD 08/28/2024 12:28 PM EDT [facility] RBC 3.80 3.80 - 4.80 M/mcL LAB HEMETOLOGY METHOD 08/28/2024 12:28 PM [facility] Hemoglobin 10.6(L) 11.5 - 16.0 g/dL LAB HEMETOLOGY METHOD 08/28/2024 12:28 PM [facility] Hematocrit 34.9(L) 35.0 - 47.0 % LAB HEMETOLOGY METHOD 08/28/2024 12:28 PM [facility] MCV 92.1 79.0 - 98.0 FL LAB HEMETOLOGY METHOD 08/28/2024 12:28 PM [facility] MCH 28.0 27.0 - 32.0 pcg LAB HEMETOLOGY METHOD 08/28/2024 12:28 PM [facility] MCHC 30.4(L) 32.0 - 37.0 g/dL LAB HEMETOLOGY METHOD 08/28/2024 12:28 PM EDT [facility] RDW 14.4 11.0 - 15.0 % LAB HEMETOLOGY METHOD 08/28/2024 12:28 PM [facility] Platelets 379 130 - 400 K/mcL LAB HEMETOLOGY METHOD 08/28/2024 12:28 PM [facility] MPV 10.4 7.0 - 11.0 FL LAB HEMETOLOGY METHOD 08/28/2024 12:28 PM [facility] NRBC 0.0 <1.0 % LAB HEMETOLOGY METHOD 08/28/2024 12:28 PM [facility] NRBC Absolute 0.00 <0.10 K/mcL LAB HEMETOLOGY METHOD 08/28/2024 12:28 PM [facility] Neutrophils Relative 67.9 % LAB HEMETOLOGY METHOD 08/28/2024 12:28 PM [facility] Lymphocytes Relative 24.5 % LAB HEMETOLOGY METHOD 08/28/2024 12:28 PM [facility] Monocytes Relative 6.0 % LAB HEMETOLOGY METHOD 08/28/2024 12:28 PM [facility] Eosinophils Relative 0.7 % LAB HEMETOLOGY METHOD 08/28/2024 12:28 PM [facility] Basophils Relative 0.7 % LAB HEMETOLOGY METHOD 08/28/2024 12:28 PM [facility] Immature Granulocytes Relative 0.2 % LAB HEMETOLOGY METHOD 08/28/2024 12:28 PM [facility] Neutrophils Absolute 3.62 1.50 - 7.00 K/mcL LAB HEMETOLOGY METHOD 08/28/2024 12:28 PM [facility] Lymphocytes Absolute 1.31 1.00 - 5.00 K/mcL LAB HEMETOLOGY METHOD 08/28/2024 12:28 PM [facility] Monocytes Absolute 0.32 0.20 - 1.00 K/mcL LAB HEMETOLOGY METHOD 08/28/2024 12:28 PM EDT [facility] Eosinophils Absolute 0.04 0.00 - 0.50 K/[facility] HEMETOLOGY METHOD 08/28/2024 12:28 PM EDT [facility] Basophils Absolute 0.04 0.00 - 0.20 K/[facility] HEMETOLOGY METHOD 08/28/2024 12:28 PM EDT [facility] Immature Granulocytes Absolute 0.01 0.00 - 0.03 K/[facility] HEMETOLOGY METHOD 08/28/2024 12:28 PM T [facility] Blood Venous blood specimen / Unknown Venipuncture / Unknown 08/28/2024 10:22 AM EDT 08/28/2024 10:22 AM EDT us Renu GIBSON LAB BLOOD ORDERABLES Final Resu lt [facility] [address] [place] [address], * (ABNORMAL) Comprehensive metabolic panel (08/28/2024 10:22 AM EDT) Sodium 141 133 - 145 mmol/L LAB CHEMISTRY METHOD 08/28/2024 2:04 PM [facility] Potassium 3.8 3.5 - 5.5 mmol/L LAB CHEMISTRY METHOD 08/28/2024 2:04 PM [facility] Chloride 106 96 - 110 mmol/L LAB CHEMISTRY METHOD 08/28/2024 2:04 PM [facility] CO2 29 21 - 32 mmol/L LAB CHEMISTRY METHOD 08/28/2024 2:04 PM [facility] Anion Gap 6 3 - 11 LAB CHEMISTRY METHOD 08/28/2024 2:04 PM [facility] Glucose 105(H) 70 - 100 mg/dL LAB CHEMISTRY METHOD 08/28/2024 2:04 PM [facility] BUN 11 5 - 25 mg/dL LAB CHEMISTRY METHOD 08/28/2024 2:04 PM [facility] Creatinine 0.81 0.50 - 1.10 mg/dL LAB CHEMISTRY METHOD 08/28/2024 2:04 PM [facility] eGFR 89 >=60 mL/min/1. 73m2 LAB CHEMISTRY METHOD 08/28/2024 2:04 PM [facility] Comment:Calculation based on the Chronic Kidney Disease Epidemiology Collaboration (CKD-EPI) equation refit without adjustment for race. BUN/Creatinine Ratio 13.6 LAB CHEMISTRY METHOD 08/28/2024 2:04 PM [facility] Calcium 9.0 8.5 - 10.5 mg/dL LAB CHEMISTRY METHOD 08/28/2024 2:04 PM [facility] AST (SGOT) 14 10 - 42 unit/L LAB CHEMISTRY METHOD 08/28/2024 2:04 PM [facility] ALT (SGPT) 16 10 - 60 unit/L LAB CHEMISTRY METHOD 08/28/2024 2:04 PM [facility] Alkaline Phosphatase 95 42 - 121 unit/L LAB CHEMISTRY METHOD 08/28/2024 2:04 PM [facility] Total Protein 7.5 6.0 - 8.0 g/dL LAB CHEMISTRY METHOD 08/28/2024 2:04 PM [facility] Albumin 3.7 3.2 - 5.0 g/dL LAB CHEMISTRY METHOD 08/28/2024 2:04 PM [facility] Total Bilirubin 0.4 0.0 - 1.4 mg/dL LAB CHEMISTRY METHOD 08/28/2024 2:04 PM [facility] Blood Venous blood specimen / Unknown Venipuncture / Unknown 08/28/2024 10:22 AM EDT 08/28/2024 10:22 AM EDT Renu GIBSON LAB BLOOD ORDERABLES Final Resu lt [facility] [address] [place] [address], * Depression Screening (12/09/2023) Depression Screening abstracted Historical Provider HEALTH MAINTENANCE Final Result * SCREENING MAMMOGRAPHY BI 2-VIEW BREAST INC CAD (11/01/2023 2:50 PM EDT) Anatomical Region Laterality Modality Radiographic Radha ging 10/27/2022 10:5 7 AM EDT Narrative 11/02/2023 10:44 AM EDT This is a summary report. The complete report is available in the patient's medical record. If you cannot access the medical record, please contact the sending organization for a detailed fax or copy. Full field digital screening 2D C views and tomosynthesis mammography, reviewed with CAD and compared to previous. The breast tissue is heterogeneously dense, limiting sensitivity. No suspicious mass, architectural distortion or suspicious calcifications are identified. IMPRESSION: : Dense breast tissue, limiting the sensitivity of mammography. No mammographic evidence of malignancy. BIRADS 1-Negative; N. 5 year breast cancer risk assessment 0.9 % Lifetime breast cancer risk assessment 7.2 % Breast cancer risk category Low (<15%) Procedure Note Eunice Stockton MD - 02/22/2024 This is a summary report. The complete report is available in thepatient's medical record. If you cannot access the medical record, pleasecontact the sending organization for a detailed fax or copy. Full field digital screening 2D C views and tomosynthesis mammography,reviewed with CAD and compared to previous. The breast tissue isheterogeneously dense, limiting sensitivity. No suspicious mass,architectural distortion or suspicious calcifications are identified. IMPRESSION: : Dense breast tissue, limiting the sensitivity of mammography. Nomammographic evidence of malignancy. BIRADS 1-Negative; N. 5 year breast cancer risk assessment 0.9 % Lifetime breast cancer risk assessment 7.2 % Breast cancer risk category Low (<15%) us Nichol Shelby CNM IMG XR PROCEDURES Final Result * External Colonoscopy Report (08/07/2021 2:13 PM EDT) Anatomical Region Laterality Modality Endoscopy Natalie Macias MD GI~PROCEDURE ORDERABLES Final Re sult from Last 3 Months or Most Recently Relevant to Health Maintenance Insurance [facility] Care Teams Creative/Art Director Relationship Specialty Start Date End Date Migdalia Villalobos MD [address] [place] [address] [id number] PCP - General Internal Medicine 11/23/21
== END 2024-11-13 14:24 | disposition home or self-care (01) ==
PROVIDERS: Emergency Provider Emergency Medicine Emergency Medical Services; PCP Internal Medicine
DX: G56.01 Carpal tunnel syndrome, right upper limb (principal); M25.531 Pain in right wrist
CPT/HCPCS: 73110; 73130; 99282; 99283

== ENCOUNTER → 2024-11-13 12:48 | Outpatient (BNV) | payer OTHER, SELFPAY | PROVIDERS: Emergency Provider Emergency Medicine Emergency Medical Services; PCP Internal Medicine; Visit Provider Radiology Diagnostic Radiology | DX: M25.531 Pain in right wrist (principal) | CPT/HCPCS: 73110; 73130 ==

== ENCOUNTER 2024-12-21 13:14 | Outpatient (AMB) | payer OTHER, SELFPAY ==
--- OUTSIDE RECORDS SUMMARY | 2024-12-21 13:17 | XMS_ITS | Clinical Summary ---
Author Organization [facility] Address [address] [place] [address] Care Team Providers Care Supervisor Real Estate Office Name Role Phone Ceci Lozada MD Primary Care Provider Allergies No known active allergies Medications Medication Sig Dispensed Refills Start Date End Date Status buPROPion (WELLBUTRIN SR) 150 MG 12 hr tablet 0 02/25/2021 Active DULoxetine (CYMBALTA) DR capsule 60 mg 0 02/25/2021 Active meclizine (ANTIVERT) 25 MG tablet 0 12/01/2020 Active mesalamine (APRISO) 0.375 g 24 hr capsule 0 02/23/2021 Active omeprazole (PriLOSEC) 20 MG capsule 0 01/20/2021 Active rizatriptan (MAXALT-CHILDREN'S PROGRAM COORDINATOR) 10 MG disintegrating tablet 0 02/23/2021 Act [...] age to complete this topic Care Teams Supervisor Real Estate Office Relationship Specialty Start Date End Date Ceci Lozada MD [address] [place] [address] PCP - General Internal Medicine 03/04/21
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
[2024-12-21 13:30] VITALS: BMI 26.3
== END 2024-12-21 14:20 | disposition home or self-care (01) ==
LOC: HO.HOS 13:15
PROVIDERS: PCP Internal Medicine
DX: M25.531 Pain in right wrist (principal)
CPT/HCPCS: 99203

== ENCOUNTER → 2024-12-21 13:14 | Outpatient (BNVA) | payer OTHER, SELFPAY | PROVIDERS: PCP Internal Medicine | DX: M25.531 Pain in right wrist (principal) | CPT/HCPCS: 99202 ==

== ENCOUNTER → 2025-01-05 14:49 | Outpatient (BNV) | payer OTHER, SELFPAY | PROVIDERS: PCP Internal Medicine; Visit Provider Radiology Diagnostic Radiology | DX: M25.531 Pain in right wrist (principal) | CPT/HCPCS: 73221 ==

== ENCOUNTER 2025-01-05 14:54 | Outpatient (REF) | payer OTHER, SELFPAY ==
--- NOTE | ~2025-01-05 | MR_ITS ---
CLINICAL HISTORY: M25.531 - Pain in right wrist --- Additional Notes or Special Instructions: R wrist pain MR right wrist without gadolinium Comparison: CR/SR - XR WRIST 3 OR MORE VIEWS RIGHT - 11/13/24 13:03 EDT Findings: No acute fractures. No pathologic bone lesions. No effusion. No scapholunate or lunotriquetral ligament tears. No tears of the flexor or extensor tendons. The triangular fibrocartilage complex is intact. There is no thickening or bowing of the flexor retinaculum. Intact median and ulnar nerves. IMPRESSION: 1. No acute findings. This document has been electronically signed by: Elizabeth Irvin MD on 01/06/2025 13:16:29
--- OUTSIDE RECORDS SUMMARY | 2025-01-05 14:57 | XMS_ITS | Clinical Summary ---
Author Organization [facility] Address [address] [place] [address] Care Team Providers Care Impact Hammer Operator Name Role Phone Ceci Lozada MD Primary Care Provider [phone] Allergies No known active allergies Medications Medication Sig Dispensed Refills Start Date End Date Status buPROPion (WELLBUTRIN SR) 150 MG 12 hr tablet 0 02/25/2021 Active DULoxetine (CYMBALTA) DR capsule 60 mg 0 02/25/2021 Active meclizine (ANTIVERT) 25 MG tablet 0 12/01/2020 Active mesalamine (APRISO) 0.375 g 24 hr capsule 0 02/23/2021 Active omeprazole (PriLOSEC) 20 MG capsule 0 01/20/2021 Active rizatriptan (MAXALT-BIT SANDER) 10 MG disintegrating tablet 0 02/23/2021 Act [...] age to complete this topic Care Teams Impact Hammer Operator Relationship Specialty Start Date End Date Ceci Lozada MD [address] [place] [address] PCP - General Internal Medicine 03/04/21
--- OUTSIDE RECORDS SUMMARY | 2025-01-05 14:57 | XMS_ITS | Clinical Summary ---
Author Organization [facility] [address] [facility] Address [address] [facility] [place] [address] Phone Care Team Providers Care Supervisor Costuming Name Role Phone Migdalia Villalobos MD Primary Care Prov ider Allergies No known active allergies Medications acetaminophen (TYLENOL 8 HOUR) 650 mg 8 hr tablet Take 1 tablet (650 mg total) by mouth every 8 (eight) hours if needed. 06/27/19 24 Active budesonide 9 mg tablet,delayed and ext.release Take 9 mg by mouth daily for 30 days. 02/13/20 24 Active diclofenac (VOLTAREN) 1 % topical gel APPLY 1 GRAM TOPICALLY 2 TIMES DAILY. 10/04/19 24 Active omeprazole (PriLOSEC) [address] capsule Take 1 capsule (20 mg total) by mouth 1 (one) time each day. 01/21/20 21 Active rizatriptan (MAXALT-HYDRAULIC AUTO JACK MECHANIC) 10 mg disintegrating tablet TAKE 1 TABLET BY MOUTH NEEDED FOR MIGRAINE. MAY REPEAT IN 2 HOURS IF NEEDED (MAX 2 PER 24 HRS) 9 tablet 2 06/06/19 25 Active ondansetron (ZOFRAN) 4 mg tablet TAKE 1 TABLET BY MOUTH EVERY 12 HOURS NEEDED FOR NAUSEA. 120 tablet 1 07/17/19 25 Active DULoxetine (CYMBALTA) [address] capsule TAKE 1 CAPSULE BY MOUTH EVERY DAY 90 capsule 1 08/04/19 25 Active buPROPion SR (WELLBUTRIN SR) 150 mg 12 hr tablet TAKE 1 TABLET BY MOUTH EVERY DAY 90 tablet 1 08/04/19 25 Active azaTHIOprine (IMURAN) 50 mg tablet TAKE 1 TABLET BY MOUTH TWICE A DAY 180 tablet 1 11/19/19 25 Active meclizine (ANTIVERT) 25 mg tablet Take 1 tablet (25 mg total) by mouth 3 (three) times a day if needed for dizziness. Active verapamiL (CALAN) 40 mg tablet Take 1 tablet (40 mg total) by mouth 1 (one) time each day. Active norethindrone (THU,MARY,HEA THER,MICRONOR) 0.35 mg tablet Take 1 tablet (0.35 mg total) by mouth 1 (one) time each day. Active cyclobenzaprine (FLEXERIL) 10 mg tablet TAKE 1 TABLET BY MOUTH AT BEDTIME NEEDED FOR MUSCLE SPASMS. 30 tablet 05/10/19 25 025 Discontinued Active Problems Problem Noted Date Diagnosed Date Iron deficiency anemia due to chronic blood loss 12/17/2024 Overweight (BMI 25.0-29.9) 08/22/2024 Chronic diarrhea 03/16/2022 Vitamin B12 deficiency 07/25/2018 Irritant contact dermatitis 01/10/2018 Overview (02/24/2024): Last Assessment & Plan: Reviewed findings with patient. Reviewed [facility] guidelines and encouraged her specifically [...] above. 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[facility] V24, CMS/HC C V28) 07/14/2016 Coagulopathy ([facility] V24) 05/12/2016 Papanicolaou smear of cervix with low grade squamous intraepithelial lesion (LGSIL) 03/22/2016 Overview (02/24/2024): Hx LEEP years ago. Colposcopy 03/22/16, negative biopsy. Pap 2017 LSIL, colpo 03/10/17 - Bx & ECC neg Repeat co-testing 12 months. 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 Thoracic back pain 09/06/2013 Breast mass 07/28/2012 Anemia 10/21/2011 Depression 10/21/2011 Kidney stones 10/21/2011 GERD (gastroesophageal reflux disease) 2 Lumbago 09/01/2011 Migraine headache 09/01/2011 Encounters Date Type Department Care Team Description 12/24/2024 1:12 PM EDT - 12/24/2024 11:59 PM EDT Hospital Encounter [facility] [address] [phone] Wiliam Perry MD Iron deficiency anemia due to chronic blood loss (Primary Dx) Discharge Disposition: Home or Self Care 12/17/2024 2:15 PM EDT Office Visit [facility] Hematology Oncology [address] [place] [phone] Wiliam Perry MD Iron deficiency anemia due to chronic blood loss (Primary Dx) 10/16/2024 Telephone Adult Medicine [facility] - [address] [phone] Migdalia Gupta MD 10/09/2024 2:30 PM EDT Office Visit Obstetrics and Gynecology - [address] [phone] Nichol Shelby CNM Encounter for gynecological examination without abnormal finding (Primary Dx); Screen for STD (sexually transmitted disease); Amenorrhea; Papanicolaou smear of cervix with low grade squamous intraepithelial lesion (LGSIL); Surveillance for control, oral contraceptives 10/08/2024 1:50 PM EDT Lab Draw Station - 175 [facility] [address] [phone] Ulcerative rectosigmoiditis with complication (CMS/HCC V24, CMS/HCC V28) 10/08/2024 1:20 PM EDT Office Visit Gastroenterology - [place] [address] [place] [address] Jackelin Cordero PA Ulcerative rectosigmoiditis with complication ([facility] V24, [facility] V28) from Last 3 Months Immunizations Name Administration Dates Next Due Hepatitis B (Sukxovt-P-Eafya , Recombivax HB-Adult) 19yo and older 11/22/2022,09/06/2022,01/04/2022 [...] COMMENT: right breast lipoma VAGINOSCOPY 2001 PROCEDURE: OR COLPOSCOPY CERVIX BX CERVIX & ENDOCRV CURRETAGE CERVICAL BIOPSY W/ LOOP ELECTRODE EXCISION PROCEDURE: OR CONIZATION CERVIX W/WO D&C RPR ELTRD EXC COLONOSCOPY 03/19/2016 PROCEDURE: HISTORICAL COLONOSCOPY; COMMENT: Dr. Galarza - ulcerative proctitis BREAST BIOPSY 12/17/2013 Left PROCEDURE: BX BREAST; PERC NEEDLE CORE W/IMAG GUID; COMMENT: cyst asp. apocrine cyst BREAST SURGERY 08/22/2012 Right PROCEDURE: OR UNLISTED PROCEDURE BREAST; COMMENT: exc bx lipoma [...] do you feel lonely or isolated from th ose around you? Rarely 08/21/2024 Food Risk [...] care for your loved ones. For example, child nutrition director or elderly care for an older adult? [...] g Live Births 3 3 3 0 3 Date Outcome GA Total Labor Labor/2nd/3rd Weight Sex Type Anes PTL Minda A1 A5 Name Clin Term Term Term Last Filed Vital Signs Vital Sign Reading Time Taken Comments Blood Pressure 113/53 12/17/2024 2:17 PM EDT Pulse 88 12/17/2024 2:17 PM EDT Temperature 36.8 C (98.3 F) 12/17/2024 2:17 PM EDT Respiratory Rate 15 08/22/2024 2:53 PM EDT Oxygen Saturation 100% 12/17/2024 2:17 PM EDT Inhaled Oxygen Concentration - - Weight 71.1 kg (156 lb 12.8 oz) 12/17/2024 2:17 PM EDT Height 162.6 cm (5' 4 ) 12/17/2024 2:17 PM EDT Body Mass Index 26.91 12/17/2024 2:17 PM EDT Plan of Treatment Upcoming Encounters Date Type Department Care Team (Late st Contact Info) Description 01/09/2025 2:00 PM EDT Office Visit Gastroenterology [facility] 175 [facility] 175 [facility] [address] [place] [address] Jackelin Cordero PA [address] [place] [phone] 01/10/2025 2:00 PM EDT Appointment [facility] [address] [phone] 01/14/2025 2:00 PM EDT Appointment [facility] [address] [phone] 02/25/2025 1:15 PM EDT Office Visit Adult Medicine [address] [phone] Migdalia Villalobos MD [address] [place] [address] 08/26/2025 3:00 PM EDT Office Visit Adult Medicine [address] [phone] Renu Bettencourt PA [address] [place] [address] Health Maintenance Due Date Last Done Comments Colorectal Cancer Screening: Colonoscopy 08/08/2023 08/07/2021 Influenza Vaccine (#1) 2025 , 02/17/2023, 06/08/2021, Additional history exists Social Influencers of Health Screening 08/21/2025 08/21/2024 Cervical Cancer Screening: HPV 10/09/2025 10/09/2024, 12/29/2021 Breast Cancer Screening 10/31/2025 11/01/19 24, 11/01/2023, 10/27/2022, Additional history exists Cholesterol Screening (Lipid Panel) 08/28/2029 08/28/2024, 04/12/2023 DTaP,Tdap,and Td Vaccines (4 - Td or Tdap) 11/07/2031 11/06/2021, 10/21/2011, 10/07/2008 COVID-19 Vaccine Discontinued 11/28/2020, 10/31/2020 Hepatitis B Vaccines Completed 11/22/2022, 09/06/2022, 01/04/2022 Depression Screening Completed 08/21/2024, 12/09/19 24 HIV Screening Completed 10/09/2024, 06/08/2023 Hepatitis C [...] Procedure Name Priority Date/Time Associated Diagnosis Comments CBC WITH AUTO DIFFERENTIAL Routine 12/17/2024 2:43 PM EDT Iron deficiency anemia due to chronic blood loss VITAMIN B12 AND FOLATE Routine 2:43 PM EDT Iron deficiency anemia due to chronic blood loss FERRITIN Routine 12/17/2024 2:43 PM EDT Iron deficiency anemia due to chronic blood loss IRON AND TIBC Routine 12/17/2024 2:43 PM EDT Iron deficiency anemia due to chronic blood loss CBC AND DIFFERENTIAL Routine 12/17/2024 2:43 PM EDT Iron deficiency anemia due to chronic blood loss HIV 1, 2 ANTIBODY, P24 ANTIGEN WITH [...] rectosigmoiditis with complication (CMS/HCC V24, CMS/HCC V28) LIPID PANEL WITH REFLEX TO DIRECT LDL Routine 08/28/2024 10:22 AM EDT Screening for cardiovascular condition DEPRESSION SCREENING Routine 12/09/2023 SCREENING MAMMOGRAPHY BI 2-VIEW BREAST INC CAD Routine 11/01/2023 2:50 PM EDT Encounter for screening mammogram for malignant neoplasm of breast EXTERNAL COLONOSCOPY REPORT Routine 08/07/2021 2:13 PM EDT from Last 3 Months or Most Recently Relevant to Health Maintenance Results * Vitamin B12 and folate (12/17/2024 2:43 PM EDT) Vitamin B-12 303 250 - 900 pcg/mL LAB CHEMISTRY METHOD 12/17/2024 6:09 PM EDT [facility] Folate 14.7 2.8 - 17.0 ng/ml LAB CHEMISTRY METHOD 12/17/2024 6:09 PM EDT [facility] Blood Venous blood specimen / Unknown Venipuncture / Unknown 12/17/2024 2:43 PM EDT 12/17/2024 4:34 PM EDT us Wiliam Serrano MD LAB BLOOD ORDERABLE S Final Result [facility] [address] [place] [address], * (ABNORMAL) CBC auto differential (12/17/2024 2:43 PM EDT) WBC 4.2(L) 4.8 - 10.8 K/mcL LAB HEMETOLOGY METHOD 12/17/2024 5:17 PM EDT [facility] RBC 3.70(L) 3.80 - 4.80 M/mcL LAB HEMETOLOGY METHOD 12/17/2024 5:17 PM EDT [facility] Hemoglobin 10.5(L) 11.5 - 16.0 g/dL LAB HEMETOLOGY METHOD 12/17/2024 5:17 PM EDT [facility] Hematocrit 35.9 35.0 - 47.0 % LAB HEMETOLOGY METHOD 12/17/2024 5:17 PM EDT [facility] MCV 97.3 79.0 - 98.0 FL LAB HEMETOLOGY METHOD 12/17/2024 5:17 PM EDT [facility] MCH 28.5 27.0 - 32.0 pcg LAB HEMETOLOGY METHOD 12/17/2024 5:17 PM EDT [facility] MCHC 29.2(L) 32.0 - 37.0 g/dL LAB HEMETOLOGY METHOD 12/17/2024 5:17 PM EDT [facility] RDW 14.6 11.0 - 15.0 % LAB HEMETOLOGY METHOD 12/17/2024 5:17 PM EDT [facility] Platelets 354 130 - 400 K/mcL LAB HEMETOLOGY METHOD 12/17/2024 5:17 PM EDT [facility] MPV 10.6 7.0 - 11.0 FL LAB HEMETOLOGY METHOD 12/17/2024 5:17 PM EDT [facility] NRBC 0.0 <1.0 % LAB HEMETOLOGY METHOD 12/17/2024 5:17 PM [facility] NRBC Absolute 0.00 <0.10 K/mcL LAB HEMETOLOGY METHOD 12/17/2024 5:17 PM [facility] Neutrophils Relative 63.2 % LAB HEMETOLOGY METHOD 12/17/2024 5:17 PM [facility] Lymphocytes Relative 24.8 % LAB HEMETOLOGY METHOD 12/17/2024 5:17 PM [facility] Monocytes Relative 9.8 % LAB HEMETOLOGY METHOD 12/17/2024 5:17 PM [facility] Eosinophils Relative 1.0 % LAB HEMETOLOGY METHOD 12/17/2024 5:17 PM [facility] Basophils Relative 1.0 % LAB HEMETOLOGY METHOD 12/17/2024 5:17 PM [facility] Immature Granulocytes Relative 0.2 % LAB HEMETOLOGY METHOD 12/17/2024 5:17 PM [facility] Neutrophils Absolute 2.66 1.50 - 7.00 K/mcL LAB HEMETOLOGY METHOD 12/17/2024 5:17 PM [facility] Lymphocytes Absolute 1.04 1.00 - 5.00 K/mcL LAB HEMETOLOGY METHOD 12/17/2024 5:17 PM [facility] Monocytes Absolute 0.41 0.20 - 1.00 K/mcL LAB HEMETOLOGY METHOD 12/17/2024 5:17 PM [facility] Eosinophils Absolute 0.04 0.00 - 0.50 K/mcL LAB HEMETOLOGY METHOD 12/17/2024 5:17 PM [facility] Basophils Absolute 0.04 0.00 - 0.20 K/mcL LAB HEMETOLOGY METHOD 12/17/2024 5:17 PM EDT [facility] Immature Granulocytes Absolute 0.01 0.00 - 0.03 K/[facility] LAB HEMETOLOGY METHOD 12/17/2024 5:17 PM EDT [facility] Blood Venous blood specimen / Unknown Venipuncture / Unknown 12/17/2024 2:43 PM EDT 12/17/2024 4:30 PM EDT us Wiliam Serrano MD LAB BLOOD ORDERABLE S Final Result Performing Organization Address [facility]/ZIP Co de Phone Number [facility] [address] [place] [address], [place] [phone] * Iron and TIBC (12/17/2024 2:43 PM EDT) Only the most recent of2 resultswithin the time period is included. [facility] Signature Iron 133 40 - 150 mcg/dL LAB CHEMISTRY METHOD 12/17/2024 6:09 PM EDT [facility] TIBC 433 250 - 450 mcg/dL LAB CHEMISTRY METHOD 12/17/2024 6:09 PM EDT [facility] Iron Saturation 31 15 - 50 % LAB CHEMISTRY METHOD 12/17/2024 6:09 PM EDT [facility] Blood Venous blood specimen / Unknown Venipuncture / Unknown 12/17/2024 2:43 PM EDT 12/17/2024 4:34 PM EDT us Wiliam Serrano MD LAB BLOOD ORDERABLE S Final Result Performing Organization Address [facility]/ZIP Co de Phone Number [facility] [address] [place] [address], [place] [phone] * (ABNORMAL) Ferritin (12/17/2024 2:43 PM EDT) Only the most recent of2 resultswithin the time period is included. Ferritin 7(L) 8 - 252 ng/mL LAB CHEMISTRY METHOD 12/17/2024 6:14 PM EDT [facility] Blood Venous blood specimen / Unknown Venipuncture / Unknown 12/17/2024 2:43 PM EDT 12/17/2024 4:34 PM EDT Wiliam Serrano MD LAB BLOOD ORDERABLE S Final Result Performing Organization Address [facility]/ZIP Co de Phone Number [facility] [address] [place] [address], [place] [phone] * Hepatitis C antibody (10/09/2024 3:25 PM EDT) [facility] Hepatitis C Antibody Negative Negative LAB CHEMISTRY METHOD 10/09/2024 10:48 PM EDT [facility] Blood Venous blood specimen / Unknown Venipuncture / Unknown 10/09/2024 3:25 PM EDT 10/09/2024 3:25 PM EDT Nichol Shelby CNM LAB BLOOD ORDERABLES Final Res ult Performing Organization Address City/[facility]/ZIP Co de Phone Number [facility] [address] [place] [address], [place] [phone] * HIV 1,2 antibody, p24 antigen with reflex to differentiation (10/09/2024 3:25 PM EDT) Pathologist [facility] HIV Combo AB/AG Negative Negative LAB CHEMISTRY METHOD 10/09/2024 10:49 PM EDT [facility] Blood Venous blood specimen / Unknown Venipuncture / Unknown 10/09/2024 3:25 PM EDT 10/09/2024 3:25 PM EDT Narrative [facility] - 10/09/2024 10:49 PM EDT This assay is a 4th generation assay allowing for earlier detection of HIV infection by detecting the presence of the HIV-1 p24 antigen as well as the traditional antibodies to HIV type 1 (including group O) and type 2. Use of a 4th generation assay is the current CDC recommendation for HIV screening. us Nichol HASSAN LAB BLOOD ORDERABLES Final Res ult Performing Organization Address [facility]/ZIP Co de Phone Number [facility] [address] [place] [address], [place] [phone] * Hepatitis B surface antigen with reflex to confirmation (10/09/2024 3:25 PM EDT) Hepatitis B Surface Ag Negative Negative LAB CHEMISTRY METHOD 10/09/2024 10:20 PM EDT [facility] Blood Venous blood specimen / Unknown Venipuncture / Unknown 10/09/2024 3:25 PM EDT 10/09/2024 3:25 PM EDT Narrative [facility] - 10/09/2024 10:20 PM EDT Over the counter supplements containing high doses of biotin may interfere with this assay. If interference is suspected, patients shoud be retested after refraining from biotin supplements for 72 hours. Nichol Shelby [facility] BLOOD ORDERABLES Final Res ult Performing Organization Address [facility] Co de Phone Number [facility] [address] [place] [address], [place] [phone] * Treponema pallidum antibody with reflex to RPR and particle agglutination (10/09/2024 3:25 PM EDT) T. Pallidum Antibodies Negative Negative LAB CHEMISTRY METHOD 10/09/2024 10:20 PM EDT [facility] Blood Venous blood specimen / Unknown Venipuncture / Unknown 10/09/2024 3:25 PM EDT 10/09/2024 3:25 PM EDT Nichol Shelby [facility] BLOOD ORDERABLES Final Res ult Performing Organization Address City/[facility]/ZIP Co de Phone Number [facility] [address] [place] [address], [place] [phone] * Estradiol (10/09/2024 3:25 PM EDT) Estradiol <11 See below pcg/mL LAB CHEMISTRY METHOD 10/09/2024 8:58 PM EDT [facility] Comment: ESTRADIOL REFERENCE RANGES (PG/ML) [...] EDT 10/09/2024 3:25 PM EDT Nichol Shelby [facility] BLOOD ORDERABLES Final Res ult Performing Organization Address [facility]/ZIP Co de Phone Number [facility] [address] [place] [address], [place] [phone] * Follicle stimulating hormone (10/09/2024 3:25 PM EDT) Follicle Stimulating Hormone 96.9 See Comment mIU/mL LAB CHEMISTRY METHOD 10/09/2024 8:58 PM EDT [facility] Comment: FSH REFERENCE RANGES (MIU/ML) FEMALES NORMALLY MENSTRUATING: FOLLICULAR PHASE 2.3 - 12.6 MIDCYCLE PEAK 5.2 - 17.5 LUTEAL PHASE 1.7 - 9.5 POSTMENOPAUSAL: ON HRT 5.9 - 72.8 UNTREATED 12.7 - 132.2 Blood Venous blood specimen / Unknown Venipuncture / Unknown 10/09/2024 3:25 PM EDT 10/09/2024 3:25 PM EDT us Nichol HASSAN LAB BLOOD ORDERABLES Final Res ult [facility] [address] [place] [address], [place] [phone] * Chlamydia trachomatis and neisseria gonorrhoeae by tma, thinprep (10/09/2024 3:22 PM EDT) N. gonorrhoeae, RNA Probe Negative Negative LAB MICROBIOLOGY METHOD 10/11/2024 1:49 PM EDT [facility] Chlamydia, RNA Probe Negative Negative LAB MICROBIOLOGY METHOD 10/11/2024 1:49 PM EDT [facility] Brushing/Spatula Cervix uteri structure / Unknown 10/09/2024 3:22 PM EDT 10/11/2024 8:00 AM EDT us Nichol HASSAN LAB CYTOLOGY ORDERABLES Final Result Performing Organization Address [facility]/ZIP Co de Phone Number [facility] [address] [place] [address], [place] [phone] * HPV with reflex genotype (10/09/2024 3:22 PM EDT) HPV Negative Negative LAB MICROBIOLOGY METHOD 10/11/2024 2:07 PM EDT [facility] Brushing/Spatula Cervix uteri structure / Unknown 10/09/2024 3:22 PM EDT 10/11/2024 8:00 AM EDT us Nichol HASSAN LAB MOLECULAR DIAGNOSTICS ORDE RABLES Final Result [facility] [address] [place] [address], [place] [phone] * Trichomonas vaginalis molecular study (10/09/2024 3:22 PM EDT) Trichomonas vaginalis Negative Negative LAB MICROBIOLOGY METHOD 10/11/2024 1:59 PM EDT [facility] Brushing/Spatula Cervix uteri structure / Unknown 10/09/2024 3:22 PM EDT 10/11/2024 8:00 AM EDT Nichol HASSAN LAB BLOOD ORDERABLES Final Res ult [facility] [address] [place] [address], [place] [phone] * Pap smear (10/09/2024 3:22 PM EDT) Pathologist [facility] Interpretation Negative for intraepithelial lesion or malignancy 10/17/2024 3:28 PM EDT [facility] Clinical Information LSIL 2021 CXCB NEG 10/17/2024 3:28 PM EDT [facility] General Categorization Negative 10/17/2024 3:28 PM EDT [facility] Specimen Adequacy Satisfactory for evaluation, endocervical/bautista sformation zone component present 10/17/2024 3:28 PM EDT [facility] Pap Methodology Liquid Based Pap Test 10/17/2024 3:28 PM EDT [facility] Disclaimer The Pap test is a screening test which carries an inherent false negative rate. These test results should be correlated with the patient's clinical findings and history. This Pap test was processed using an automated screening system. Technical cytopathology services provided by [facility], at [address] [place] [address] (CLIA # [id number]/Alvarez Perea MD, [employer] Reporter.) 10/17/2024 3:28 PM EDT [facility] Console Pap Interpretation Reported 10/17/2024 3:28 PM EDT [facility] Brushing/Spatula Cervix uteri structure / Unknown 10/09/2024 3:22 PM EDT 10/09/2024 3:22 PM EDT Nichol HASSAN LAB CYTOLOGY ORDERABLES Final Result [facility] [address] [place] [address], * Thiopurine metabolites (10/08/2024 1:46 PM EDT) 6-Thioguanine 238 235 - 400 10/16/2024 4:39 PM EDT [facility] Comment: UNITS OF MEASURE: pmol/8x10(8)RBC (Note) This test was developed and its analytical performance characteristics have been determined by [employer]. It has not been cleared or approved by the FDA. This assay has been validated pursuant to the CLIA regulations and is used for clinical purposes. 6-Methylmercaptop urine <500 <5700 10/16/2024 4:39 PM EDT [facility] Comment: UNITS OF MEASURE: pmol/8x10(8)RBC (Note) [...] analytical performance characteristics have been determined by [employer]. It has not been cleared or approved by the FDA. This assay has been validated pursuant to the CLIA regulations and is used for clinical purposes. MD [facility] [address] [facility] [address] [facility] [address] Christen Chew MD, PhD Test Performed at: [facility] [address] [facility] [address], [address] [place] [address] Tianan Chew MD, PhD Blood Venous blood specimen / Unknown Venipuncture / Unknown 10/08/2024 1:46 PM EDT 10/08/2024 1:46 PM EDT Jackelin GIBSON LAB BLOOD ORDERABLES Final Re sult [facility] [address] [place] [address] * Lipid panel with reflex to direct LDL (08/28/2024 10:22 AM EDT) Cholesterol 187 0 - 200 mg/dL LAB CHEMISTRY METHOD 08/28/2024 2:05 PM EDT [facility] Triglycerides 56 0 - 150 mg/dL LAB CHEMISTRY METHOD 08/28/2024 2:05 PM EDT [facility] HDL 81 >=40 mg/dL LAB CHEMISTRY METHOD 08/28/2024 2:05 PM [facility] LDL Calculated 95 0 - 100 mg/dL LAB CHEMISTRY METHOD 08/28/2024 2:05 PM [facility] VLDL Cholesterol Enrike 11.2 mg/dL LAB CHEMISTRY METHOD 08/28/2024 2:05 PM [facility] Non HDL Chol. (LDL+VLDL) 106 <145 mg/dL LAB CHEMISTRY METHOD 08/28/2024 2:05 PM [facility] Chol/HDL Ratio 2.3 0.0 - 4.4 LAB CHEMISTRY METHOD 08/28/2024 2:05 PM [facility] Blood Venous blood specimen / Unknown Venipuncture / Unknown 08/28/2024 10:22 AM EDT 08/28/2024 10:22 AM EDT Renu GIBSON LAB BLOOD ORDERABLES Final Resu lt [facility] ([facility]) [facility] [address] [facility] [place] [address], * Depression Screening (12/09/2023) Depression Screening abstracted [...] PM EDT) Anatomical Region Laterality Modality Endoscopy us Natalie Macias MD GI~PROCEDURE ORDERABLES Final Re sult from Last 3 Months or Most Recently Relevant to Health Maintenance Insurance [facility] Care Teams Supervisor Costuming Relationship Specialty Start Date End Date Migdalia Villalobos MD [address] [place] [phone] PCP - General Internal Medicine 11/23/21
== END 2025-01-05 14:55 | disposition home or self-care (01) ==
LOC: HO.MRI 14:54
PROVIDERS: PCP Internal Medicine
DX: M25.531 Pain in right wrist (principal)
CPT/HCPCS: 73221

== ENCOUNTER 2025-01-22 14:47 | Outpatient (AMB) | payer OTHER, SELFPAY ==
--- NOTE | 2025-01-22 14:50 | A.OFFVIS_ITS ---
Vital Signs 01/22/25 14:51 Height 5 ft 4 in Weight 153 lb BMI 26.3 Intake Visit Reasons: OV-Rt wrist MRI review Intake Note: Guy is a 49 year old right hand dominant female who presents today for review of her Right Wrist MRI results. She was given a Velcro wrist brace at her last visit on 12/21/24. Samira reports today her pain is worsening, not being relieved by the wrist brace or OTC pain medications. Allergies aspirin (ASA) Adverse Reaction (Verified 01/22/25 14:51) Unknown HPI HPI OV-Rt wrist MRI review: Details: Guy is a 49 year old right hand dominant female who presents today for review of her Right Wrist MRI results. She was given a Velcro wrist brace at her last visit on 12/21/24. Samira reports today her pain is worsening, not being relieved by the wrist brace or OTC pain medications. Patient reports the pain is primarily around the radial styloid, and radiates into the thumb and the forearm. [facility] Medical History Renal calculi Surgical History H/O tubal ligation Social History (Updated 12/21/24 @ 13:31 by Seda Beauchamp CMA) Household Members: None Housing: Apartment Do you presently have visiting nurse or other home services: No Patient Tobacco Use Status: Former Tobacco user e-Cigarette/Vaping Use: Currently Using service: No Physical Exam Vital Signs: BMI result Body Mass Index 26.3 Extrem Other: Patient is alert, oriented, and in no acute distress. Neuro: Normal sensation of the tips of all digits of the right hand at this time Vascular: Cap refill brisk Pain: Significant tenderness to palpation of the right radial styloid No tenderness to palpation of the anatomical snuffbox Positive Geovany on the right ROM: Patient is able to make a closed fist and extend all digits of the right hand fully, reports pain in the radial styloid with both flexion and extension of the right thumb Skin: No lacerations or abrasions. General: No ecchymosis, erythema, or evidence of infection. Psych: Appears grossly normal Affect normal Attitude cooperative Results Reviewed Results Reviewed: Findings: No acute fractures. No pathologic bone lesions. No effusion. No scapholunate or lunotriquetral ligament tears. No tears of the flexor or extensor tendons. The triangular fibrocartilage complex is intact. There is no thickening or bowing of the flexor retinaculum. Intact median and ulnar nerves. IMPRESSION: 1. No acute findings. Assessment & Plan Assessment & Plan (1) De Quervain's tenosynovitis, right: Code(s): M65.4 - Radial styloid tenosynovitis [de Quervain] Category: Medical Plan 1. Right de Quervain tenosynovitis Patient is educated about this condition Patient is educated about the treatment options available At this time, patient would like to proceed with bracing with a comfort cool brace and occupational therapy to work on range of motion and strengthening of the right hand and wrist in the setting of de Quervain tenosynovitis Patient is educated that if this proves ineffective, she should call us for discussion of further treatment options, including but not limited to injections and/or 1st dorsal compartment release Patient understands this in his amenable to this plan Follow-up as needed Orders: Orders OT Evaluation and Treatment 01/22/25 M65.4 - Radial styloid tenosynovitis [de Quervain] Coding Level of Care Code Est Pt Level 3 (43972) Diagnoses De Quervain's tenosynovitis, right M65.4
[2025-01-22 14:51] VITALS: BMI 26.3
--- OUTSIDE RECORDS SUMMARY | 2025-01-22 18:29 | XMS_ITS | Clinical Summary ---
Author Organization [facility] [address] [facility] Address [address] [place] [address] Phone Care Team Providers Care Logistics Project Manager Name Role Phone Migdalia Villalobos MD Primary [...] time each day. 01/21/20 21 Active rizatriptan (MAXALT-UNDERGRADUATE INTERN) 10 mg disintegrating tablet TAKE 1 TABLET [...] DAY 180 tablet 1 11/19/19 25 Active verapamiL (CALAN) 40 mg tablet Take 1 tablet (40 mg total) by mouth 1 (one) time each day. Active meclizine (ANTIVERT) 25 mg tablet Take 1 tablet (25 mg total) by mouth 3 (three) times a day if needed for dizziness. 025 Discontin ued(Presc riber Discontin ued) norethindrone (THU,MARY,HEAT HER,MICRONOR) 0.35 mg tablet Take 1 tablet (0.35 mg total) by mouth 1 (one) time each day. 025 Discontin ued(Presc riber Discontin ued) Active Problems Problem Noted Date Diagnosed Date Iron deficiency anemia due to chronic blood loss 12/17/2024 Overweight (BMI 25.0-29.9) 08/22/2024 Chronic diarrhea 03/16/2022 Vitamin B12 deficiency 07/25/2018 Irritant contact dermatitis 01/10/2018 Overview (02/24/2024): Last Assessment & Plan: Reviewed findings with patient. Reviewed [facility] guidelines and encouraged her specifically [...] above. 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[facility]/HCC V24, CMS/HC C V28) 07/14/2016 Coagulopathy ([facility] V24) 05/12/2016 Papanicolaou smear of cervix with [...] Encounters Date Type Department Care Team Description 01/10/2025 2:00 PM EDT - 01/10/2025 11:59 PM EDT Hospital Encounter [facility] Infusion [address] [phone] Michelleramonia-Iy erWiliam MD Iron deficiency anemia due to chronic blood loss (Primary Dx) Discharge Disposition: Home or Self Care 12/24/2024 1:12 PM EDT - 12/24/2024 11:59 PM EDT Hospital Encounter [facility] Infusion Center [address] [place] [phone] Adanonia-Iy erWiliam MD Iron deficiency anemia due to chronic blood loss (Primary Dx) Discharge Disposition: Home or Self Care 12/17/2024 2:15 PM EDT Office Visit [facility] Hematology Oncology [address] [place] [phone] Adanonia-Iy erWiliam MD Iron deficiency anemia due to chronic blood loss (Primary Dx) from Last 3 Months Immunizations Name Administration Dates Next Due Hepatitis B (Enjunig-G-Hufxs , Recombivax HB-Adult) 19yo and older 11/22/2022,09/06/2022,01/04/2022 [...] COMMENT: right breast lipoma VAGINOSCOPY 2001 PROCEDURE: HI COLPOSCOPY CERVIX BX CERVIX & ENDOCRV CURRETAGE CERVICAL BIOPSY W/ LOOP ELECTRODE EXCISION PROCEDURE: HI CONIZATION CERVIX W/WO D&C RPR ELTRD EXC COLONOSCOPY 03/19/2016 PROCEDURE: HISTORICAL COLONOSCOPY; COMMENT: Dr. Galarza - ulcerative proctitis BREAST BIOPSY 12/17/2013 Left PROCEDURE: BX BREAST; PERC NEEDLE CORE W/IMAG GUID; COMMENT: cyst asp. apocrine cyst BREAST SURGERY 08/22/2012 Right PROCEDURE: HI UNLISTED PROCEDURE BREAST; COMMENT: exc bx lipoma [...] DX:Depression Ulcerative proctitis with re ctal bleeding ([facility] V24, CMS/[facility] V28) 07/14/2016 DX:Ulcerative proc titis with rectal bleeding ([facility]) Vitamin D deficiency 09/16/2016 DX:Vitamin D deficiency [...] care for your loved ones. For example, early childhood coordinator or elderly care for an older adult? [...] Information Value Date Recorded Sex Assigned at Female 01/10/2025 2:07 PM EDT Legal Sex Female 10:46 PM EST Gender Identity Female 01/10/2025 2:07 PM EDT Sexual Orientation Straight 01/10/2025 2: 07 PM EDT Obstetrics History Para Term AB IAB SAB Ectopic Multiple Livin g Live Births 3 3 3 0 3 Date Outcome GA Total Labor Labor/2nd/3rd Weight Sex Type Anes PTL Minda A1 A5 Name Clin Term Term Term Last Filed Vital Signs Vital Sign Reading Time Taken Comments Blood Pressure 119/66 01/10/2025 4:00 PM EDT Pulse 89 01/10/2025 4:00 PM EDT Temperature 36.7 C (98 F) 01/10/2025 2:18 PM EDT Respiratory Rate 18 01/10/2025 4:00 PM EDT Oxygen Saturation 100% 01/10/2025 4:00 PM EDT Inhaled Oxygen Concentration - - Weight 71.1 kg (156 lb 12.8 oz) 12/17/2024 2:17 PM EDT Height 162.6 cm (5' 4 ) 12/17/2024 2:17 PM EDT Body Mass Index 26.91 12/17/2024 2:17 PM EDT Plan of Treatment Upcoming Encounters Date Type Department Care Team (Late st Contact Info) Description 01/24/2025 1:00 PM EDT Appointment [facility] Infusion Center [address] [place] [address] 02/25/2025 1:15 PM EDT Office Visit Adult Medicine [address] [phone] Migdalia Villalobos MD [address] [place] [address] 08/26/2025 3:00 PM EDT Office Visit Adult [address] [phone] Renu Bettencourt PA [address] [place], [place] Health Maintenance Due Date Last Done [...] Procedure Name Priority Date/Time Associated Diagnosis Comments EXTERNAL MRI REPORT Routine 01/05/2025 9 :06 AM EDT CBC WITH AUTO DIFFERENTIAL Routine 12/17/2024 2:43 [...] deficiency anemia due to chronic blood loss HEPATITIS C ANTIBODY Routine 10/09/2024 3:25 PM EDT Screen for STD (sexually transmitted disease) HIV 1, 2 ANTIBODY, P24 ANTIGEN WITH REFLEX TO DIFFERENTIATION Routine 10/09/2024 3:25 PM EDT Screen for STD (sexually transmitted disease) HPV WITH REFLEX GENOTYPE Routine 10/09/2024 3:22 PM EDT Encounter for gynecological examination without abnormal finding LIPID PANEL WITH REFLEX TO DIRECT LDL Routine 08/28/2024 10:22 AM EDT Screening for cardiovascular condition HM DEPRESSION SCREENING Routine 12/09/2023 SCREENING MAMMOGRAPHY BI 2-VIEW BREAST INC CAD Routine 11/01/2023 2:50 PM EDT Encounter for screening mammogram for malignant neoplasm of breast EXTERNAL COLONOSCOPY REPORT Routine 08/07/2021 2:13 PM EDT from Last 3 Months or Most Recently Relevant to Health Maintenance Results * External MRI Report (01/05/2025 9:06 AM EDT) Anatomical Region Laterality Modality Magnetic Resonan ce Historical Provider IMG MRI PROCEDURES Final Result * Vitamin B12 and folate (12/17/2024 2:43 PM EDT) Pathologist [facility] [place] Vitamin B-12 303 250 - 900 pcg/mL LAB CHEMISTRY METHOD 12/17/2024 6:09 PM EDT [facility] Folate 14.7 2.8 - 17.0 ng/ml LAB CHEMISTRY METHOD 12/17/2024 6:09 PM EDT [facility] Blood Venous blood specimen / Unknown Venipuncture / Unknown 12/17/2024 2:43 PM EDT 12/17/2024 4:34 PM EDT Wiliam Serrano MD LAB BLOOD ORDERABLE S Final Result [facility] [address] [place] [address], * (ABNORMAL) CBC auto differential (12/17/2024 2:43 PM EDT) WBC 4.2(L) 4.8 - 10.8 K/mcL LAB HEMETOLOGY METHOD 12/17/2024 5:17 PM EDT [facility] RBC 3.70(L) 3.80 - 4.80 M/mcL LAB HEMETOLOGY METHOD 12/17/2024 5:17 PM EDT [facility] Hemoglobin 10.5(L) 11.5 - 16.0 g/dL LAB HEMETOLOGY METHOD 12/17[facility]2024 5[facility] Hematocrit 35.9 35.0 - 47.0 % LAB HEMETOLOGY METHOD 12/17/2024 5:17 PM EDT [facility] MCV 97.3 79.0 - 98.0 FL LAB HEMETOLOGY METHOD 12/17/2024 5:17 [facility] MCH 28.5 27.0 - 32.0 pcg LAB HEMETOLOGY METHOD 12/17/2024 5:17 PM [facility] MCHC 29.2(L) 32.0 - 37.0 g/dL LAB HEMETOLOGY METHOD 12/17/2024 5:17 PM [facility] RDW 14.6 11.0 - 15.0 % LAB HEMETOLOGY METHOD 12/17/2024 5:17 [facility] Platelets 354 130 - 400 K/mcL LAB HEMETOLOGY METHOD 12/17/2024 5:17 PM [facility] MPV 10.6 7.0 - 11.0 FL LAB HEMETOLOGY METHOD 12/17/2024 5:17 PM EDT [facility] NRBC 0.0 <1.0 % LAB HEMETOLOGY METHOD 12/17/2024 5:17 [facility] NRBC Absolute 0.00 <0.10 K/mcL LAB HEMETOLOGY METHOD 12/17/2024 5:17 [facility] Neutrophils Relative 63.2 % LAB HEMETOLOGY METHOD 12/17/2024 5:17 [facility] Lymphocytes Relative 24.8 % LAB HEMETOLOGY METHOD 12/17/2024 5:17 PM EDT [facility] Monocytes Relative 9.8 % LAB HEMETOLOGY METHOD 12/17/2024 5:17 [facility] Eosinophils Relative 1.0 % LAB HEMETOLOGY METHOD 12/17/2024 5:17 PM EDT [facility] Basophils Relative 1.0 % LAB HEMETOLOGY METHOD 12/17/2024 5:17 PM EDT [facility] Immature Granulocytes Relative 0.2 % LAB HEMETOLOGY METHOD 12/17/2024 5:17 PM EDT [facility] Neutrophils Absolute 2.66 1.50 - 7.00 K/mcL LAB HEMETOLOGY METHOD 12/17/2024 5:17 [facility] Lymphocytes Absolute 1.04 1.00 - 5.00 K/mcL LAB HEMETOLOGY METHOD 12/17/2024 5:17 [facility] Monocytes Absolute 0.41 0.20 - 1.00 K/mcL LAB HEMETOLOGY METHOD 12/17/2024 5:17 [facility] Eosinophils Absolute 0.04 0.00 - 0.50 K/mcL LAB HEMETOLOGY METHOD 12/17/2024 5:17 PM [facility] Basophils Absolute 0.04 0.00 - 0.20 K/mcL LAB HEMETOLOGY METHOD 12/17/2024 5:17 PM T [facility] Immature Granulocytes Absolute 0.01 0.00 - 0.03 K/mcL LAB HEMETOLOGY METHOD 12/17/2024 5:17 PM [facility] Blood Venous blood specimen / Unknown Venipuncture / Unknown 12/17/2024 2:43 PM EDT 12/17/2024 4:30 PM EDT us Subramony Subramonia-Albert MD LAB BLOOD ORDERABLE S Final Result Performing Organization Address City/[facility]/ZIP Co de Phone Number [facility] [address] [place] [address], [place] [phone] * Iron and TIBC (12/17/2024 2:43 PM EDT) Iron 133 40 - 150 mcg/dL LAB CHEMISTRY METHOD 12/17/2024 6:09 PM EDT [facility] TIBC 433 250 - 450 mcg/dL LAB CHEMISTRY METHOD 12/17/2024 6:09 PM EDT [facility] Iron Saturation 31 15 - 50 % LAB CHEMISTRY METHOD 12/17/2024 6:09 PM EDT [facility] Blood Venous blood specimen / Unknown Venipuncture / Unknown 12/17/2024 2:43 PM EDT 12/17/2024 4:34 PM EDT Wiliam Serrano MD LAB BLOOD ORDERABLE S Final Result Performing Organization Address [facility]/ZIP Co de Phone Number [facility] [address] [place] [address], [place] [phone] * (ABNORMAL) Ferritin (12/17/2024 2:43 PM EDT) Ferritin 7(L) 8 - 252 ng/mL LAB CHEMISTRY METHOD 12/17/2024 6:14 PM EDT [facility] Blood Venous blood specimen / Unknown Venipuncture / Unknown 12/17/2024 2:43 PM EDT 12/17/2024 4:34 PM EDT us Wiliam Serrano MD LAB BLOOD ORDERABLE S Final Result Performing Organization Address City/[facility]/ZIP Co de Phone Number [facility] [address] [place] [address], [place] [phone] * Hepatitis C antibody (10/09/2024 3:25 PM EDT) Hepatitis C Antibody Negative Negative LAB CHEMISTRY METHOD 10/09/2024 10:48 PM EDT [facility] Blood Venous blood specimen / Unknown Venipuncture / Unknown 10/09/2024 3:25 PM EDT 10/09/2024 3:25 PM EDT us Nichol Shelby [facility] LAB BLOOD ORDERABLES Final Res ult Performing Organization Address City/[facility]/ZIP Co de Phone Number [facility] [address] [place] [address], [place] [phone] * HIV 1,2 antibody, p24 antigen with reflex to differentiation (10/09/2024 3:25 PM EDT) Pathologist [facility] [place] HIV Combo AB/AG Negative Negative LAB CHEMISTRY METHOD 10/09/2024 10:49 PM EDT [facility] Blood Venous blood specimen / Unknown Venipuncture / Unknown 10/09/2024 3:25 PM EDT 10/09/2024 3:25 PM EDT Narrative [facility] - 10/09/2024 10:49 PM EDT This assay is a 4th generation assay allowing for earlier detection of HIV infection by detecting the presence of the HIV-1 p24 antigen as well as the traditional antibodies to HIV type 1 (including group O) and type 2. Use of a 4th generation assay is the current CDC recommendation for HIV screening. us Nichol Shelby [facility] BLOOD ORDERABLES Final Res ult Performing Organization Address City/[facility]/ZIP Co de Phone Number [facility] [address] [place] [address], [place] [phone] * HPV with reflex genotype (10/09/2024 3:22 PM EDT) HPV Negative Negative LAB MICROBIOLOGY METHOD 10/11/2024 2:07 PM EDT [facility] Brushing/Spatula Cervix uteri structure / Unknown 10/09/2024 3:22 PM EDT 10/11/2024 8:00 AM EDT us Nichol HASSAN LAB MOLECULAR DIAGNOSTICS PJ MARS Final Result [facility] [address] [place] [address], [place] [phone] * Lipid panel with reflex to direct LDL (08/28/2024 10:22 AM EDT) Cholesterol 187 0 - 200 mg/dL LAB CHEMISTRY METHOD 08/28/2024 2:05 PM EDT [facility] Triglycerides 56 0 - 150 mg/dL LAB CHEMISTRY METHOD 08/28/2024 2:05 PM EDT [facility] HDL 81 >=40 mg/dL LAB CHEMISTRY METHOD 08/28/2024 2:05 PM EDT [facility] LDL Calculated 95 0 - 100 mg/dL LAB CHEMISTRY METHOD 08/28/2024 2:05 PM EDT [facility] VLDL Cholesterol Enrike 11.2 mg/dL LAB CHEMISTRY METHOD 08/28/2024 2:05 PM EDT [facility] Non HDL Chol. (LDL+VLDL) 106 <145 mg/dL LAB CHEMISTRY METHOD 08/28/2024 2:05 PM EDT [facility] Chol/HDL Ratio 2.3 0.0 - 4.4 LAB CHEMISTRY METHOD 08/28/2024 2:05 PM EDT [facility] Blood Venous blood specimen / Unknown Venipuncture / Unknown 08/28/2024 10:22 AM EDT 08/28/2024 10:22 AM EDT us Renu GIBSON LAB BLOOD ORDERABLES Final Resu lt [facility] [address] [place] [address], * Depression Screening (12/09/2023) Depression Screening abstracted [...] % Breast cancer risk category Low (<15%) Nichol Shelby CNM IMG XR PROCEDURES Final Result * External Colonoscopy Report (08/07/2021 2:13 PM EDT) Anatomical Region Laterality Modality Endoscopy Natalie Macias MD GI~PROCEDURE ORDERABLES Final Re sult from Last 3 Months or Most Recently Relevant to Health Maintenance Insurance [facility] Care Teams Logistics Project Manager Relationship Specialty Start Date End Date Migdalia Villalobos MD [address] [place] [phone] PCP - General Internal Medicine 11/23/21
== END 2025-01-22 15:28 | disposition home or self-care (01) ==
LOC: HO.HOS 14:48
PROVIDERS: PCP Internal Medicine
DX: M65.4 Radial styloid tenosynovitis [de Quervain] (principal)
CPT/HCPCS: 99213

== ENCOUNTER → 2025-01-22 14:47 | Outpatient (BNVA) | payer OTHER, SELFPAY | PROVIDERS: PCP Internal Medicine | DX: Z71.2 Person consulting for explanation of examination or test findings (principal); M65.4 Radial styloid tenosynovitis [de Quervain]; M25.531 Pain in right wrist | CPT/HCPCS: 99212 ==

== ENCOUNTER 2025-03-11 14:30 | Outpatient (RCR) | payer OTHER, SELFPAY ==
--- NOTE | 2025-03-08 10:10 | MHC.OT.EP ---
[facility] Office [address] [facility] [phone] F: [phone] F: [phone] Occupational Therapy Plan of Care Patient Name: Guy Bates Date of Evaluation: 03/04/25 Diagnosis: R thumb pain Pain Location: R THUMB Pain Score: 8 Pain Scale Used: Numeric (0 - 10) Aggravating Factors: Alleviating Factors: Assessment: Pt is a 50 yr old R hand dominant female who reports pain over the radial side of her wrist since October which has continued to increase over time.. She denies any paresthesia UD/RD pain. And reports pain w/ thumb extension. She reports having an MRI And an X-ray with no definitive results. She presents today wearing a comfort cool splint (but states it still allows a lot of thumb movement), swelling in her thenar eminence, and decreased strength in her R hand. Pt would benefit from skilled OT therapy to address these deficits and increase the functional use of her R hand. Frequency and Duration: The patient will be seen 2xs a week for 4 weeks Short Term Goals: SEE BELOW Retirement Goals: Pt will be complaint w/ orthoses wear Pt will report 3/10 pain w/ activity Pt will deny pain w/ thumb extension Pt will be compliant w/ her HEP Treatment Plan: Therapeutic Exercise Therapeutic Activity Home Exercise Program Splinting Neuro Re-ed Patient Education Desensitization/Sensory Re-ed Edema Control Ultrasound NMES Iontophoresis Paraffin Fluidotherapy MHP Cold Packs Joint Mobilization Soft Tissue Mobilization Kinesiotaping look for subluxation of APB Electronically Signed By: Yoana turner OTR/L Please Sign and return to therapist. Thank you once again for your referral.
--- NOTE | 2025-03-19 14:08 | MHC.OT.DC ---
[facility] Office [address] [facility] [phone] F: [phone] F: [phone] Occupational Therapy Discharge Note Patient Name: Guy Bates Provider: [place] Diagnosis: R thumb pain Date of Surgery: Date of Evaluation: 03/04/25 Date of Discharge: Treatments to Date: 2 Cancellations to Date: No Shows to Date: Discharge Status: Visit Non-compliance Discharge Summary: Pt did not show up for 2 consecutive visits Electronically Signed By: Yoana Begum OTR/L Reviewed/agree with student documentation: Therapist: Please Sign and return to therapist, thank you for your referral.
== END 2025-03-19 14:08 | disposition home or self-care (01) ==
LOC: HO.OT 14:30
PROVIDERS: PCP Internal Medicine
DX: M65.4 Radial styloid tenosynovitis [de Quervain] (principal)
CPT/HCPCS: 97035; 97140; 97165; 97535

== ENCOUNTER 2025-03-29 14:42 | Outpatient (AMB) | payer OTHER, SELFPAY ==
[2025-03-29 14:45] VITALS: BMI 26.3
--- NOTE | 2025-03-29 14:45 | A.OFFVIS_ITS ---
Vital Signs 03/29/25 14:45 Height 5 ft 4 in Weight 153 lb BMI 26.3 Intake Visit Reasons: O/V RT de Quervain tenosynovitis/dics injection Intake Note: Guy is a 50 year old right hand dominant female who presents today for Follow Up of her Right De Quervain's Tenosynovitis. At her last visit, patient wished to proceed with bracing with a comfort cool brace and occupational therapy to work on range of motion and strengthening. Referral to OT placed. Today, patient reports OT recommended a thumb spica brace. She has been using it as recommended however she has not been able to wear it at night because she sleeps with her hand under her hand on her face. Patient wishes to discuss surgical intervention over steroid injection. She has not had any success with O T. Forming Machine Adjuster Required: No Allergies aspirin (ASA) Adverse Reaction (Verified 03/29/25 14:54) Unknown HPI HPI O/V RT de Quervain tenosynovitis/dics injection: Details: Guy is a 50 year old right hand dominant female who presents today for Follow Up of her Right De Quervain's Tenosynovitis. At her last visit, patient wished to proceed with bracing with a comfort cool brace and occupational therapy to work on range of motion and strengthening. Referral to OT placed. Today, patient reports OT recommended a thumb spica brace. She has been using it as recommended however she has not been able to wear it at night because she sleeps with her hand under her hand on her face. Patient wishes to discuss surgical intervention or steroid injection. She has not had any success with OT. [facility] Medical History Renal calculi Surgical History H/O tubal ligation Social History (Updated 12/21/24 @ 13:31 by Seda Beauchamp CMA) Household Members: None Housing: Apartment Do you presently have visiting nurse or other home services: No Patient Tobacco Use Status: Former Tobacco user e-Cigarette/Vaping Use: Currently Using service: No Review of Systems Const All systems reviewed & are unremarkable except as noted in HPI and below Physical Exam Vital Signs: BMI result Body Mass Index 26.3 Extrem Other: Patient is alert, oriented, and in no acute distress. Neuro: Normal sensation of the tips of all digits of the right hand at this time Vascular: Cap refill brisk Pain: Significant tenderness to palpation of the right radial styloid No tenderness to palpation of the anatomical snuffbox Positive Geovany on the right ROM: Patient is able to make a closed fist and extend all digits of the right hand fully, reports pain in the radial styloid with both flexion and extension of the right thumb Skin: No lacerations or abrasions. General: No ecchymosis, erythema, or evidence of infection. Psych: Appears grossly normal Affect normal Attitude cooperative Office Procedures AMB Tendon Injection Tendon Injection [id number] Tendon Sheath Injection All charges added?: Procedure code (CPT) selection complete Assessment & Plan Assessment & Plan (1) De Quervain's tenosynovitis, right: Code(s): M65.4 - Radial styloid tenosynovitis [de Quervain] Category: Medical Plan 1. Right de Quervain tenosynovitis After discussion of treatment options, patient would like to proceed with steroid injection: Injection #1: The risks and benefits of a steroid injection including but not limited to risk of damage to blood vessels, nerves, tendons, infection, skin bleaching, failure to improve symptoms, increased pain, and possible need for further injections or other intervention were discussed with the patient and the patient wishes to proceed with the steroid injection. Once consent was obtained, I sterilely prepped the area over the 1st dorsal compartment of the right thumb. I then injected the 1st dorsal compartment with a combination of 1 mL of dexamethasone (4mg/ml), and 1% lidocaine. The patient tolerated the procedure well with no complications and good resolution of their symptoms prior to leaving clinic. If the patient continues to have pain 6-8 weeks following this injection, they may call to schedule appointment to discuss alternative treatment options Coding Level of Care Code Est Pt Level 3 (42885) Diagnoses De Quervain's tenosynovitis, right M65.4 CPT Codes Tendon Injection - Tendon Injection 1: [id number] Tendon Sheath Injection ([id number])
--- OUTSIDE RECORDS SUMMARY | 2025-03-29 14:58 | XMS_ITS | Clinical Summary ---
Author Organization [facility] Address [address] [place] [address] Care Team Providers Care Student Support Services Director Name Role Phone Ceci Lozada MD Primary Care Provider [phone] Allergies No known active allergies Medications Medication Sig Dispensed Refills Start Date End Date Status buPROPion (WELLBUTRIN SR) 150 MG 12 hr tablet 0 02/25/2021 Active DULoxetine (CYMBALTA) DR capsule 60 mg 0 02/25/2021 Active meclizine (ANTIVERT) 25 MG tablet 0 12/01/2020 Active mesalamine (APRISO) 0.375 g 24 hr capsule 0 02/23/2021 Active omeprazole (PriLOSEC) 20 MG capsule 0 01/20/2021 Active rizatriptan (MAXALT-RN CLINICAL COORDINATOR) 10 MG disintegrating tablet 0 02/23/2021 [...] Tdap) 10/20/2021 10/21/2011 COVID-19 Vaccine (3 - 2024- season) 2025 11/28/2020, 10/31/2020 Influenza Vaccine (#1) 2025 9, 12/30/2014, 02/08/2013, Additional history exists Breast Cancer Screening (Mammogram) 2025 Shingrix-Zoster Vaccine (1 of 2) 2025 Pneumococcal Vaccine Aged Out No long er eligible based on patient's age to complete this topic RSV Ped < 20 months Aged Out No longe r eligible based on patient's age to complete this topic Care Teams Student Support Services Director Relationship Specialty Start Date End Date Ceci Lozada MD [address] [place] [address] PCP - General Internal Medicine 03/04/21
--- OUTSIDE RECORDS SUMMARY | 2025-03-29 14:58 | XMS_ITS | Clinical Summary ---
Author Organization [facility] [address] [facility] Address [address], [place] Phone Care Team Providers Care Order Processing Specialist Name Role Phone Migdalia Villalobos MD Primary Care Prov ider Allergies No known active allergies Medications acetaminophen (TYLENOL 8 HOUR) 650 mg 8 hr tablet Take 1 tablet (650 mg total) by mouth every 8 (eight) hours if needed. 024 Active budesonide 9 mg tablet,delayed and ext.release Take 9 mg by mouth daily for 30 days. 024 Active diclofenac (VOLTAREN) 1 % topical gel APPLY 1 GRAM TOPICALLY 2 TIMES DAILY. 024 Active azaTHIOprine (IMURAN) 50 mg tablet TAKE 1 TABLET BY MOUTH TWICE A DAY 180 tablet 1 025 Active verapamiL (CALAN) 40 mg tablet Take 1 tablet (40 mg total) by mouth 1 (one) time each day. Active rizatriptan (MAXALT-CHEMICAL PLANT WORKER) 10 mg disintegrating tablet May repeat in 2 hours if unresolved. Do not exceed 30 mg in 24 hours.TAKE 1 TABLET BY MOUTH NEEDED FOR MIGRAINE. MAY REPEAT IN 2 HOURS IF NEEDED (MAX 2 PER 24 HRS) 9 tablet 2 025 Active ondansetron (ZOFRAN) 4 mg tablet TAKE 1 TABLET BY MOUTH EVERY 12 HOURS NEEDED FOR NAUSEA. THIS IS NOT A SLIDER ASSEMBLER MEDICATION 30 tablet Active DULoxetine (CYMBALTA) [address] capsule Take 1 capsule (60 mg total) by mouth 1 (one) time each day. 90 capsule 1 Active buPROPion SR (WELLBUTRIN SR) 150 mg 12 hr tablet Take 1 tablet (150 mg total) by mouth 1 (one) time each day. 90 tablet 1 025 Active omeprazole (PriLOSEC) [address] capsule TAKE 1 CAPSULE BY MOUTH EVERY DAY 90 capsule 2 025 Active omeprazole (PriLOSEC) [address] capsule Take 1 capsule (20 mg total) by mouth 1 (one) time each day. 021 2024 Discontinued rizatriptan (MAXALT-CHEMICAL PLANT WORKER) 10 mg disintegrating tablet TAKE 1 TABLET BY MOUTH NEEDED FOR MIGRAINE. MAY REPEAT IN 2 HOURS IF NEEDED (MAX 2 PER 24 HRS) 9 tablet 2 025 2024 Discontinued(R eorder) ondansetron (ZOFRAN) 4 mg tablet TAKE 1 TABLET BY MOUTH EVERY 12 HOURS NEEDED FOR NAUSEA. 120 tablet 1 025 2024 Discontinued(R eorder) DULoxetine (CYMBALTA) [address] capsule TAKE 1 CAPSULE BY MOUTH EVERY DAY 90 capsule 1 025 2024 Discontinued(R eorder) buPROPion SR (WELLBUTRIN SR) 150 mg 12 hr tablet TAKE 1 TABLET BY MOUTH EVERY DAY 90 tablet 1 025 2024 Discontinued(R eorder) Active Problems Problem Noted Date Diagnosed Date Iron deficiency anemia due to chronic blood loss 12/17/2024 Overweight (BMI 25.0-29.9) 08/22/2024 Chronic diarrhea 03/16/2022 Vitamin B12 deficiency 07/25/2018 Irritant contact dermatitis 01/10/2018 Overview (02/24/2024): Last Assessment & Plan: Reviewed findings with patient. Reviewed [facility] guidelines and encouraged her specifically to Baking [...] above. 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, CMS/HC C V28) 07/14/2016 Coagulopathy ([facility] V24) 05/12/2016 Papanicolaou smear of cervix with [...] Encounters Date Type Department Care Team Description 01/24/2025 12:58 PM EDT - 01/24/2025 11:59 PM EDT Hospital Encounter [facility] [address] [place] [phone] EsmerIWiliam coulter MD Iron deficiency anemia due to chronic blood loss (Primary Dx) Discharge Disposition: Home or Self Care 01/10/2025 2:00 PM EDT - 01/10/2025 11:59 PM EDT Hospital Encounter [facility] [address] [place] [phone] EsmerIWiliam coulter MD Iron deficiency anemia due to chronic blood loss (Primary Dx) Discharge Disposition: Home or Self Care from Last 3 Months Immunizations Immunization Administration Dates Next Due Hepatitis B (Tsirlyb-B-Bhqhr , Recombivax HB-Adult) 19yo and older 11/22/2022,09/06/2022,01/04/2022 [...] COMMENT: right breast lipoma VAGINOSCOPY 2001 PROCEDURE: TN COLPOSCOPY CERVIX BX CERVIX & ENDOCRV CURRETAGE CERVICAL BIOPSY W/ LOOP ELECTRODE EXCISION PROCEDURE: TN CONIZATION CERVIX W/WO D&C RPR ELTRD EXC COLONOSCOPY 03/19/2016 PROCEDURE: HISTORICAL COLONOSCOPY; COMMENT: Dr. Galarza - ulcerative proctitis BREAST BIOPSY 12/17/2013 Left PROCEDURE: BX BREAST; PERC NEEDLE CORE W/IMAG GUID; COMMENT: cyst asp. apocrine cyst BREAST SURGERY 08/22/2012 Right PROCEDURE: TN UNLISTED PROCEDURE BREAST; COMMENT: exc bx lipoma [...] 07/14/2016 DX:Ulcerative proc titis with rectal bleeding ([facility]) Vitamin D deficiency 09/16/2016 DX:Vitamin D deficiency [...] Years Used Date Smoking Tobacco: Former Cigarettes 0 Q uit: 05/09/2005 Smokeless Tobacco: Never Tobacco [...] Record ed Within the last 3 months, robles fleming many times did you visit the emergency [...] your loved ones. For example, early childhood lead teacher or elderly care for an older adult? [...] Date Recorded What is your living situation? Unrecognized valu e 08/21/2024 Comments No Sex and Gender Information [...] Sign Reading Time Taken Comments Blood Pressure 121/63 01/24/2025 1:12 PM EDT Pulse 89 01/24/2025 1:12 PM EDT Temperature 36.7 C (98.1 F) 01/24/2025 1:12 PM EDT Respiratory Rate 16 01/24/2025 1:12 PM EDT Oxygen Saturation 100% 01/24/2025 1:12 PM EDT Inhaled Oxygen Concentration - - Weight 71.1 kg (156 lb 12.8 oz) 12/17/2024 2:17 PM EDT Height 162.6 cm (5' 4 ) 12/17/2024 2:17 PM EDT Body Mass Index 26.91 12/17/2024 2:17 PM EDT Plan of Treatment Upcoming Encounters Date Type Department Care Team (Late st Contact Info) Description 08/26/2025 3:00 PM EDT Office Visit Adult Medicine [facility] [address], [place] [phone] Renu Bettencourt PA [address], [place] Health Maintenance Due Date Last Done Comments Pneumococcal Vaccine: 50+ Years (1 of 2 - PCV) 1994 Zoster Vaccines (1 of 2) 1994 Colorectal Cancer Screening: Colonoscopy 08/08/2023 08/07/2021 Influenza Vaccine (#1) 2025 , 02/17/2023, 06/08/2021, Additional history exists RSV Immunization Adult Patients (1 - Risk 50-74 years 1-dose series) 2025 Social Influencers of Health Screening 08/21/2025 08/21/2024 Cervical Cancer Screening: HPV 10/09/2025 10/09/2024, 12/29/2021 Breast Cancer Screening 10/31/2025 11/01/19 24, 11/01/2023, 10/27/2022, Additional history exists Cholesterol Screening (Lipid Panel) 08/28/2029 08/28/2024, 04/12/2023 DTaP,Tdap,and Td Vaccines (4 - Td or Tdap) 11/07/2031 11/06/2021, 10/21/2011, 10/07/2008 COVID-19 Vaccine Discontinued 11/28/2020, 10/31/2020 Hepatitis B Vaccines Completed 11/22/2022, 09/06/2022, 01/04/2022 Depression Screening Completed 08/21/2024, 12/09/19 HIV Screening Completed 10/09/2024, 06/08/2023 Hepatitis C [...] patient's age to complete this topic RSV Immunization Patients Under 20 months Aged Out No longer eligible based on patient's age to complete this topic Varicella Vaccines Aged Out No longer eligible based on patient's age to complete this topic Procedures Procedure Name Priority Date/Time Associated Diagnosis Comments EXTERNAL MRI REPORT Routine 01/05/2025 9 :06 AM EDT HEPATITIS C ANTIBODY Routine 10/09/2024 3:25 PM [...] Laterality Modality Magnetic Resonan ce Historical Provider MD MCWILLIAMS MRI PROCEDURES Final Result * Hepatitis C antibody (10/09/2024 3:25 PM EDT) [facility] Hepatitis C Antibody Negative Negative LAB CHEMISTRY METHOD 10/09/2024 10:48 PM EDT [facility] Blood Venous blood specimen / Unknown Venipuncture / Unknown 10/09/2024 3:25 PM EDT 10/09/2024 3:25 PM EDT Nichol HASSAN LAB BLOOD ORDERABLES Final Res ult Performing Organization Address City/[facility]/ZIP Co de Phone Number [facility] [address] [place] [address], * HIV 1,2 antibody, p24 antigen with reflex to differentiation (10/09/2024 3:25 PM EDT) [facility] HIV Combo AB/AG Negative Negative LAB CHEMISTRY METHOD 10/09/2024 10:49 PM EDT [facility] Blood Venous blood specimen / Unknown Venipuncture / Unknown 10/09/2024 3:25 PM EDT 10/09/2024 3:25 PM EDT Narrative [facility] - 10/09/2024 10:49 PM EDT This assay is a 4th generation assay allowing for earlier detection of HIV infection by detecting the presence of the HIV-1 p24 antigen as well as the traditional antibodies to HIV type 1 (including group O) and type 2. Use of a 4th generation assay is the current CDC recommendation for HIV screening. Nichol HASSAN LAB BLOOD ORDERABLES Final Res ult Performing Organization Address City/[facility]/ZIP Co de Phone Number [facility] [address] [place] [address], [place] [phone] * HPV with reflex genotype (10/09/2024 3:22 PM EDT) [facility] HPV Negative Negative LAB MICROBIOLOGY METHOD 10/11/2024 2:07 PM EDT [facility] Brushing/Spatula Cervix uteri structure / Unknown 10/09/2024 3:22 PM EDT 10/11/2024 8:00 AM EDT Nichol HASSAN LAB MOLECULAR DIAGNOSTICS PJ CREWS Final Result [facility] [address] [place] [address], [place] [phone] * Lipid panel with reflex to direct LDL (08/28/2024 10:22 AM EDT) [facility] Cholesterol 187 0 - 200 mg/dL LAB CHEMISTRY METHOD 08/28/2024 2:05 PM EDT [facility] Triglycerides 56 0 - 150 mg/dL LAB CHEMISTRY METHOD 08/28/2024 2:05 PM EDT [facility] HDL 81 >=40 mg/dL LAB CHEMISTRY METHOD 08/28/2024 2:05 PM EDT [facility] LDL Calculated 95 0 - 100 mg/dL LAB CHEMISTRY METHOD 08/28/2024 2:05 PM [facility] VLDL Cholesterol Enrike 11.2 mg/dL LAB CHEMISTRY METHOD 08/28/2024 2:05 PM [facility] Non HDL Chol. (LDL+VLDL) 106 <145 mg/dL LAB CHEMISTRY METHOD 08/28/2024 2:05 PM EDT [facility] Chol/HDL Ratio 2.3 0.0 - 4.4 LAB CHEMISTRY METHOD 08/28/2024 2:05 PM [facility] Blood Venous blood specimen / Unknown Venipuncture / Unknown 08/28/2024 10:22 AM EDT 08/28/2024 10:22 AM EDT Renu GIBSON LAB BLOOD ORDERABLES Final Resu lt [facility] [address] [place] [address], * Depression Screening (12/09/2023) Depression Screening abstracted [...] risk category Low (<15%) Procedure Note Eunice tSockton MD - 02/22/2024 This is a summary [...] Breast cancer risk category Low (<15%) Nichol L Shelby CNM IMG XR PROCEDURES Final Result * External Colonoscopy Report (08/07/2021 2:13 PM EDT) Anatomical Region Laterality Modality Endoscopy Natalie Macias MD GI~PROCEDURE ORDERABLES Final Re sult from Last 3 Months or Most Recently Relevant to Health Maintenance Insurance [facility] Care Teams Order Processing Specialist Relationship Specialty Start Date End Date Migdalia Villalobos MD [address] [place] [phone] PCP - General Internal Medicine 11/23/21
== END 2025-03-29 15:34 | disposition home or self-care (01) ==
LOC: HO.HOS 14:43
PROVIDERS: PCP Internal Medicine
DX: M65.4 Radial styloid tenosynovitis [de Quervain] (principal)
CPT/HCPCS: 20550; 99213

== ENCOUNTER → 2025-03-29 14:42 | Outpatient (BNVA) | payer OTHER, SELFPAY | PROVIDERS: PCP Internal Medicine | DX: M65.4 Radial styloid tenosynovitis [de Quervain] (principal) | CPT/HCPCS: 20550; 99212; J1100; J2003 ==